=== PATIENT | male | born 1975 | race Caucasian/White ===

== ENCOUNTER 2016-12-21 15:47 | Inpatient (IN) | payer MEDICARE ==
[~2016-12-21] VITALS: Ht 188 cm; Wt 97.8 kg
[~2016-12-21 15:47] MED LIST: ETOMIDATE 20 MG INJ ONE; SUCCINYLCHOLINE CHLORIDE 100 MG/5 ML SYG IV ONE
[2016-12-21 20:27] VITALS: Ht 188 cm; Wt 97.8 kg
[2016-12-21] MEDS ORDERED: LAMO200T18 PO (20:33)
[2016-12-21] MEDS ORDERED: LTH150C PO (20:33)
[2016-12-21] MEDS ORDERED: QUET100T PO (20:33)
[2016-12-21] MEDS ORDERED: GABA300C16 PO (20:33)
[2016-12-21 20:37] VITALS: BP 128/70; RESP 20
[2016-12-21] MEDS ORDERED: ONDANSETRON 4 MG INJ IV PRN (21:00)
[2016-12-21] MEDS ORDERED: HYDROCODONE/APAP (5/325) TAB PO PRN (21:00)
[2016-12-21] MEDS ORDERED: SOD CHLORIDE 0.9% 1,000 ML IV SCH (21:00)
[2016-12-21] MEDS ORDERED: VANCOMYCIN IV PER PHARMACY XX SCH (21:00)
[2016-12-21] MEDS ORDERED: VANCOMYCIN 2 GM in SOD CHLORIDE 0.9% 500 ML IVPB SCH (23:30)
[2016-12-21] MEDS: PIPER-TAZO 3.375 GM IV (PMX) 100 ML IVPB SCH (23:33)
[2016-12-21] MEDS ORDERED: LORAZEPAM 2 MG INJ ONE ×2 (23:49→23:50)
[2016-12-22] VITALS (96 sets, daily range): BP systolic 52–129; BP diastolic 21–96; PULSE 75–144; RESP 16–46
[2016-12-22] MEDS ORDERED: HALOPERIDOL 5 MG INJ IM ONE
[2016-12-22] MEDS ORDERED: LORAZEPAM 2 MG INJ ONE ×2 (00:21→00:27)
[2016-12-22 00:30] LABS: AADO2 Arterial 528.1 mmHg (7.0-24.0); Arterial COHb 0.1 % (0.0-3.0); Arterial Fraction of Oxyhgb 97.5 % (93.0-99.0); Arterial HCO3 13.4 mmol/L (22.0-26.0); Arterial MetHb 0.6 % (0.0-1.5); Arterial Total Hemglobin 19.7 g/dl (12.0-18.0); MODE MASK - NRB
--- NOTE | 2016-12-22 00:55 | QN ---
Documentation Comment A/P DISCUSSED W DR SÁNCHEZ S/P MANAGER HOSPICE ON VENT IVDA SEPSIS SEIZURE S/P I AND D AT [facility] IV FLUID ID CONSULT PULMONARY CT HEAD WHEN STABLE BANANA BAG SHADIA SARMIENTO URINE TOXICOLOGY JH NUÑEZ MD Dec 22, 2016 00:55
[2016-12-22] MEDS ORDERED: LORAZEPAM 2 MG INJ IV PRN (01:00)
[2016-12-22] MEDS ORDERED: ALBUTEROL/IPRATROPIUM (NEB) 3 ML AMP HHN PRN (01:00)
[2016-12-22] MEDS ORDERED: LORAZEPAM 2 MG INJ IM ONE ×4 (01:00→02:30)
[2016-12-22] MEDS: PROPOFOL 100 ML IV SCH ×4 (01:21→22:05)
[2016-12-22] MEDS: NORepinephrine 8MG/250 ML (PMX 250 ML IV PRN ×2 (01:25→05:34)
[2016-12-22] MEDS ORDERED: DEXTROSE 5%-0.9% NACL 1,000 ML IV SCH (01:30)
[2016-12-22] MEDS: MIDAZOLAM (DRIP) 50 mg/50 mL 50 ML IV SCH ×5 (01:55→21:49)
--- NOTE | 2016-12-22 02:13 | EN ---
Date/Time of Note Date/Time of Note DATE: 12/22/16 TIME: 02:05 ER Progress Note Chief complaint: Acute respiratory failure History of present illness: The patient is a 41-year-old male is presenting with acute respiratory distress. He has history of IV drug abuse, seizure disorder. I was asked by the hospitalist Dr. Leong to evaluate patient. Upon arrival to the bedside, he was agitated with low O2 saturation. He had no IV access and required to be intubated immediately. Initially he was treated with etomidate 20 mg IV and succinylcholine 120 mg IV; however the IV line was not good. He was then treated with Ativan 4 mg IM for his agitation. He then had intraosseous line immediately and medicated with etomidate 20 mg IV and succinylcholine 120 mg IV, he was intubated immediately with any difficulty. Const: Moderate acute distress. Foaming at the mouth Head: Atraumatic. Eyes: Normal Conjunctiva. ENT: Normal External Ears, Nose and Mouth. Neck: Full range of motion. No meningismus. Resp: Clear to auscultation anterior and lateral, tachypneic Cardio: Regular tachycardic Abd: Soft, non distended, normal bowel sounds, non tender. Skin: No petechiae or rashes. Back: No midline or flank tenderness. Ext: No cyanosis, or edema. Neur: Unable to perform due to his condition Psych: Unable to perform due to his condition Intraosseous Line Placement by me: Patient consented, area prepped, time out performed. Anesthesia: 1% lidocaine locally Location: Anteromedial, Proximal Tibia (1-3 cm below Tibial tuberosity) Device: EZ-IO Needle blue 2.5 cm Technique: EZ-IO Drill Results: Bone Marrow Aspirated, No extravasation Complications: No evidence of extravasation, compartment syndrome, growth plate damage, or fat embolism Endotracheal Intubation by me: Pre assessment performed. See preceding note for details. Pre-oxygenation performed with 100% oxygen RSI: Performed w/o complication or hypoxic events. Medications as ordered. Blade: [place] Scope ET Tube: 7.5cm Depth: 23 cm at the lip Intubation confirmed by colorimetric CO2, equal breath sounds, quiet over the stomach. Critical Care: Time: 35 minutes excluding all billable procedures. Treatments/Evaluations: Close monitoring and treatment of unstable vital signs, cardiorespiratory, and neurologic status, while maintaining tight balance of fluid, respiratory, and cardiac interventions. Diagnostic impression: Acute respiratory failure Disposition: The patient is not intubated. I will transfer the care back to his physician Dr. Leong at the bedside for continuity of care RICHARD MARIE MD Dec 22, 2016 02:13
[2016-12-22] MEDS ORDERED: LORAZEPAM 2 MG INJ IV ONE (02:30)
[2016-12-22 02:34] LABS: AADO2 Arterial 261.1 mmHg (7.0-24.0); Allen Test ACCEPTAB; Arterial Base Excess -6.5 mmol/L (-3.0-3); Arterial COHb 0.1 % (0.0-3.0); Arterial Fraction of Oxyhgb 98.5 % (93.0-99.0); Arterial HCO3 18.9 mmol/L (22.0-26.0); Arterial MetHb 0.8 % (0.0-1.5); Arterial Total Hemglobin 19.6 g/dl (12.0-18.0); MODE VENT - AC
--- NOTE | 2016-12-22 03:22 | EN ---
Date/Time of Note Date/Time of Note DATE: 12/22/16 TIME: 03:20 ER Progress Note I was asked by the hospitalist to insert a central line for the patient who requires IV fluid and IV antibiotic. It is done on emergent basis, the patient is intubated and unable to provide consent Central Line Placement by me: Patient consented, sterilely draped, full prep, gown, glove, mask, time out performed. Anesthesia: 1% lidocaine locally Location: Right femoral vein Device: Multiple lumen Technique: Seldinger technique. Secured with suture. Results: Venous return from all ports with easy saline flush. No complications. Guide wire retrieved and disposed of. [ED Ultrasound: Central line placed by me using concurrent ultrasound guidance. Real time image archived in the medical record confirms vascular anatomy. RICHARD MARIE MD Dec 22, 2016 03:22
[2016-12-22 03:39] LABS: ADD SCAN DIFF NO
[2016-12-22 03:47] LABS: CANNABINOIDS Negative (NEGATIVE); COCAINE Negative (NEGATIVE)
[2016-12-22 03:48] LABS: BARBITURATES Negative (NEGATIVE); BENZODIAZEPINES Negative (NEGATIVE); OPIATES Positive (NEGATIVE)
[2016-12-22 03:56] LABS: ALBUMIN 2.8 g/dl (3.3-4.9); BASOPHIL # 0.1 10^3/ul (0.0-0.1); BASOPHILS % 0.4 % (0.0-2.0); EOSINOPHILS # 0.1 10^3/ul (0.0-0.5); EOSINOPHILS % 0.4 % (0.0-7.0); HEMATOCRIT 52.8 % (42.0-52.0); HEMOGLOBIN 16.9 g/dl (14.0-18.0); LYMPHOCYTES # 2.5 10^3/ul (0.8-2.9); LYMPHOCYTES % 10.1 % (15.0-51.0); MEAN CORPUSCULAR HEMOGLOBIN 28.5 pg (29.0-33.0); MEAN PLATELET VOLUME 10.5 fl (7.4-10.4); MONOCYTE # 1.4 10^3/ul (0.3-0.9); MONOCYTES % 5.7 % (0.0-11.0); NEUTROPHILS % 82.4 % (39.0-77.0); PLATELET COUNT 458 10^3/UL (140-415); RED BLOOD COUNT 5.93 10^6/ul (4.70-6.10); RED CELL DISTRIBUTION WIDTH 14.5 % (11.5-14.5); WHITE BLOOD COUNT 24.2 10^3/ul (4.8-10.8)
[2016-12-22 03:57] LABS: POTASSIUM 3.9 mmol/L (3.5-5.1)
[2016-12-22 03:59] LABS: BILIRUBIN,INDIRECT 0.3 mg/dl (0-1.1); BILIRUBIN,TOTAL 0.3 mg/dl (0.2-1.3); CREATININE 1.25 mg/dl (0.61-1.24)
[2016-12-22 04:00] LABS: ALBUMIN/GLOBULIN RATIO 0.77; CALCIUM 8.1 mg/dl (8.4-10.2); TOTAL PROTEIN 6.4 g/dl (6.1-8.1)
[2016-12-22] MEDS ORDERED: SOD CHLORIDE 0.9% 1,000 ML IV SCH (05:00)
[2016-12-22] MEDS ORDERED: ALBUMIN HUMAN 5% 250 ML IV ONE (05:00)
[2016-12-22] MEDS: ACETAMINOPHEN 325 MG TAB PO PRN ×2 (05:02→12:44)
[2016-12-22] MEDS ORDERED: PANTOPRAZOLE (EC) 40 MG TAB PO SCH (06:00)
[2016-12-22] MEDS: PIPER-TAZO 3.375 GM IV (PMX) 100 ML IVPB SCH ×2 (06:15→12:43)
[2016-12-22] MEDS ORDERED: PHENYLephrine 20MG IN 250 ML 250 ML ONE (06:53)
--- NOTE | 2016-12-22 06:57 | RADRPT ---
PROCEDURE: XR Chest. CLINICAL INDICATION: Seizure. Check endotracheal tube and nasogastric tube position. TECHNIQUE: Single frontal view. COMPARISON: None. FINDINGS: The endotracheal tube tip is 7 cm above the marcia and should be advanced approximately 5 cm. The n asogastric tube tip is in the stomach. The lungs are clear. The heart size is normal. There is no pleural effusion. There is no pneumothorax. IMPRESSION: 1. The endotracheal tube should be advanced approximately 5 cm. 2. Nasogastric tube tip in the stomach. 3. Clear lungs. RPTAT: QQ .Mike Regalado MD, MD Date Time Electronically viewed and signed by .Mike Regalado MD, on 12/22/2016 06:57 .R/
[2016-12-22] MEDS ORDERED: SOD CHLORIDE 0.9% 500 ML IV ONE (07:00)
--- NOTE | 2016-12-22 07:01 | PQ ---
Date/Time of Note Date/Time of Note DATE: 12/22/16 TIME: 06:54 Physician Query Documentation Clarification Dear Dr. Nuñez, A review of the medical record found a need for documentation clarification. ER Progress Note Chief complaint: Acute respiratory failure History of present illness: The patient is a 41-year-old male is presenting with acute respiratory distress. He has history of IV drug abuse, seizure disorder. I was asked by the hospitalist Dr. Leong to evaluate patient. Upon arrival to the bedside, he was agitated with low O2 saturation. He had no IV access and required to be intubated immediately ABG 12/22--7.215 / 34/ 150.9 / -13 Please clarify if you concur with above diagnosis of Acute respiratory failure. ( x) yes ( ) no ( ) others ( ) clinically undetermined Please provide your response by clicking edit document, making your choice ( x ), click ok/save and finally click sign. You may also document your response on your progress notes. Thank you for your time. Juan Daniel Reyes RN, BSN, CCS, CCDS [facility] and Coding Services [phone] Room # 1525 - Coding [address]~ [address] JUAN DANIEL REYES Dec 22, 2016 07:01 JH NUÑEZ MD Dec 22, 2016 09:16
[2016-12-22] MEDS: PHENYLephrine 40 MG in DEXTROSE 5% 496 ML IV SCH ×2 (07:03→15:52)
[2016-12-22] MEDS ORDERED: NA BICARBONATE 8.4% 50 ML SYG IV STA (07:15)
[2016-12-22] MEDS ORDERED: NA BICARBONATE 8.4% 50 ML SYG ONE (07:17)
[2016-12-22] MEDS ORDERED: SOD CHLORIDE 0.9% 1,000 ML IV ONE (07:30)
--- NOTE | 2016-12-22 07:33 | PN ---
Date/Time of Note Date/Time of Note DATE: 12/22/16 TIME: 07:25 Assessment/Plan VTE Prophylaxis VTE Prophylaxis Intervention: other Lines/Catheters IV Catheter Type (from Nrsg): Central Line Central line still needed: Yes Urinary Cath still in place: Yes Reason Cath still needed: skin wounds contaminated by urine, other (indicate) Assessment/Plan Chief Complaint/Hosp Course [id number] hp A/P SEPTIC SHOCK IVDA SEIZURE LINO VDRF PLAN FLUID PRESSOR PULMONARY ID DR SANCHEZ CALLED Problems: Subjective 24 Hr Interval Summary Subjective hx not possible: other (on vent) Exam/Review of Systems Vital Signs Vitals Vital Signs Date Time Temp Pulse Resp B/P Pulse Ox O2 Delivery O2 Flow Rate FiO2 12/22/16 06:30 125 27 99/76 100 Mechanical Ventilator 12/22/16 05:14 50 12/22/16 04:00 101.0 Intake and Output 12/21/16 12/21/16 12/22/16 15:00 23:00 07:00 Intake Total 287.87 ml Output Total 740 ml Balance -452.13 ml Exam Neck: supple Respiratory: clear to auscultation Cardiovascular: regular rate and rhythm Gastrointestinal: bowel sounds, nl liver, spleen, non-tender, soft Extremities: edema (rt arm edema) Neurological: other (restless+) Skin: other (rt arm wound+) Results Result Diagram: 12/22/16 0245 12/22/16 0245 Results 24 hrs Laboratory Tests Test 12/22/16 00:15 12/22/16 01:00 12/22/16 01:30 12/22/16 02:45 Blood Gas Specimen Source Blood arterial Blood arterial Arterial Blood Date Drawn 12/22/2016 12:20:27 AM 12/22/2016 2:15:41 AM Arterial Blood pH (Temp corrected) 7.215 *L 7.316 L Arterial Blood pCO2 (Temp correct) 34.0 L 37.8 Arterial Blood pO2 (Temp corrected) 150.9 H 414.1 H Arterial Blood HCO3 13.4 L 18.9 L Arterial Blood Base Excess -13.0 L -6.5 L Arterial Blood Oxygen Saturation 98.2 H 99.4 H Vladimir Test N/A ACCEPTAB Arterial Blood Gas Puncture Site Femoral Right Radial Arterial Blood Carboxyhemoglobin 0.1 0.1 Arterial Blood Methemoglobin 0.6 0.8 Blood Gas A-a O2 Differential 528.1 H 261.1 H Oxyhemoglobin Percent 97.5 98.5 Total Hemoglobin 19.7 H 19.6 H Blood Gas Temperature 37.0 37.0 Blood Gas Modality MASK - NRB VENT - AC FiO2 100.0 100.0 Blood Gas Critical Value Read Back Liz MARSHALL RN CHARGE Blood Gas Notified Whom ALEXIS LUKE Blood Gas Notified Time 12/22/2016 12:30:32 AM 12/22/2016 2:33:33 AM Urine Opiates Screen Positive Urine Barbiturates Negative Urine Amphetamines Screen Positive Urine Benzodiazepines Screen Negative Urine Cocaine Screen Negative Urine Cannabinoids Negative Blood Gas Respiration Rate 20.0 Blood Gas Actual Respiration Rate 28 Blood Gas Tidal Volume 600.0 Blood Gas Low PEEP Setting 5.0 Blood Gas Inspiratory Pressure 25.0 White Blood Count 24.2 H Red Blood Count 5.93 Hemoglobin 16.9 Hematocrit 52.8 H Mean Corpuscular Volume 89.0 Mean Corpuscular Hemoglobin 28.5 L Mean Corpuscular Hemoglobin Concent 32.0 Red Cell Distribution Width 14.5 Platelet Count 458 H Mean Platelet Volume 10.5 H Neutrophils % 82.4 H Lymphocytes % 10.1 L Monocytes % 5.7 Eosinophils % 0.4 Basophils % 0.4 Nucleated Red Blood Cells % 0.0 Neutrophils # 20.0 H Lymphocytes # 2.5 Monocytes # 1.4 H Eosinophils # 0.1 Basophils # 0.1 Nucleated Red Blood Cells # 0.0 Sodium Level 140 Potassium Level 3.9 Chloride Level 106 Carbon Dioxide Level 22 Anion Gap 16 Blood Urea Nitrogen 7 Creatinine 1.25 H Glucose Level 308 H Calcium Level 8.1 L Total Bilirubin 0.3 Direct Bilirubin 0.00 Indirect Bilirubin 0.3 Aspartate Amino Transf (AST/SGOT) 40 Alanine Aminotransferase (ALT/SGPT) 44 Alkaline Phosphatase 106 Total Protein 6.4 Albumin 2.8 L Globulin 3.60 H Albumin/Globulin Ratio 0.77 Medications Medications Current Medications Piperacillin Sod/ Tazobactam Sod (Zosyn 3.375gm/ 100 ml (Pmx)) 100 ml @ 200 mls /hr Q6 IVPB Last administered on 12/22/16t 06:15; Admin Dose 200 MLS/HR; Start 12/22/16 at 00:00 Acetaminophen (Tylenol Tab) 650 mg Q6H PRN PO PAIN AND OR ELEVATED TEMP Last administered on 12/22/16 05:02; Admin Dose 650 MG; Start 12/21/16 at 21:00 Acetaminophen/ Hydrocodone Bitart ([place] (5/325)) 1 tab Q6H PRN PO MODERATE PAIN; Start 12/21/16 at 21:00 Morphine Sulfate (morphine) 3 mg Q3H PRN IV PAIN; Start 12/21/16 at 21:00 Ondansetron HCl (Zofran Inj) 4 mg Q6H PRN IV NAUSEA AND/OR VOMITING; Start at 21:00 Pantoprazole 40 mg 40 mg DAILY@06 PO Last administered on 12/22/16 06:15; Admin Dose 40 MG; Start 12/22/16 at 06:00 Propofol (Diprivan) 100 ml @ 2.934 mls/ hr Q12H IV Last administered on 07:11; Admin Dose 5.868 MLS/HR; Start 12/22/16 at 00:45 Lorazepam 1 mg 1 mg Q6H PRN IV SEIZURE; Start 12/22/16 at 01:00 Levetiracetam 100 ml @ 1,000 mls/hr Q12 IVPB ; Start 12/22/16 at 09:00 Multivitamins 10 ml/Thiamine HCl 100 mg/Folic Acid 1 mg/Sodium Chloride 1,011.2 ml @ 125 mls/ hr DAILY@09 IVPB ; Start 12/22/16 at 09:00 Midazolam HCl 50 ml @ 1 mls/hr TITRATE IV Last administered on 12/22/16 06:00; Admin Dose 10 MLS/HR; Start 12/22/16 at 00:45 Norepinephrine 16 mg/Dextrose 500 ml @ 1.87 mls/hr TITRATE PRN IV SBP BELOW 90mmHg; Start 12/22/16 at 07:00 Dextrose/Sodium Chloride (D5-NS) 1,000 ml @ 75 mls/hr [id number] IV Last administered on 12/22/16 01:32; Admin Dose 75 MLS/HR; Start 12/22/16 at 01:30 Hydrocortisone 100 mg 100 mg BID IV ; Start 12/22/16 at 09:00; Stop 12/25/16 at 10 :00 Tobramycin 100 mg/ Sodium Chloride 52.5 ml @ 104 mls/hr ONCE IVPB ; Start at 08:00; Stop 12/22/16 at 12:00 Phenylephrine HCl 40 mg/Dextrose 500 ml @ 75 mls/hr TITRATE IV Last administered on 12/22/16 07:03; Admin Dose 225 MLS/HR; Start 12/22/16 at 07:00 Sodium Chloride 500 ml @ 500 mls/hr Q1H ONCE IV Last administered on 12/22/16 07:04; Admin Dose 500 MLS/HR; Start 12/22/16 at 07:00; Stop 12/22/16 at 07:59 Phenylephrine HCl (Deon-Syneph) 250 ml @ 75 mls/hr TITRATE IV ; Start 12/22/16 at 07:30 JH NUÑEZ MD Dec 22, 2016 07:33
[2016-12-22] MEDS: PHENYLephrine 20MG IN 250 ML 250 ML IV SCH ×2 (07:56→09:18)
[2016-12-22] MEDS ORDERED: TOBRAMYCIN 100 MG in SOD CHLORIDE 0.9% 50 ML IVPB SCH (08:00)
--- NOTE | 2016-12-22 08:03 | HP ---
DATE OF ADMISSION: 12/21/2016 HISTORY OF PRESENT ILLNESS: The patient is a 41-year-old male who has a history of IVDA, presented to [facility] complaining of swelling and pain to the right arm. He has been shooting drugs into the right arm as per note and had multiple surgeries for abscess formation in both arms. He is also homeless. He has been on the streets for the last couple of weeks. As per record from the ER, the patient has right upper extremity abscess, I and D was done by a [place] physician. After that, patient _ [place] member, the patient was transferred to [facility]. On the floor the patient was receiving antibiotics. Patient had episodes of seizure disorder as well as patient developed respiratory insufficiency, was intubated and transferred to ICU, was seen by Dr. mcleod. The case discussed with him. The patient was also seen by Dr. Ld Shah, who intubated the patient. The patient has been having ongoing episodes of up and down blood pressure; receiving pressors, IV fluid and antibiotics. The patient's laboratory data done from [place]: WBC 17 , hematocrit 39.8, platelet 302, potassium 3.8, CO2 of 23, creatinine is 0.68. The patient is pretty critical at this point. PAST MEDICAL HISTORY: As mentioned above, cannot be obtained. ALLERGY HISTORY: At this time cannot be obtained from this patient. FAMILY HISTORY: At this time cannot be obtained from this patient. SOCIAL HISTORY: At this time cannot be obtained from this patient. MEDICATION HISTORY: Currently the patient is on: 1. Keppra. 2. Banana bag. 3. Solu-Cortef. 4. Tobramycin. 5. Levophed. 6. Protonix. 7. D5 half normal saline. 8. Ativan. 9. Propofol. 10. Zosyn. 11. Vancomycin. REVIEW OF SYSTEMS: Cannot be obtained. PHYSICAL EXAMINATION: GENERAL: The patient is intubated, restless. VITAL SIGNS: Blood pressure 96/76, pulse 125, respirations 30, the patient's temperature was recorded as 101.0. HEENT: Head is atraumatic, normocephalic. Pupils equal, reactive to light. NECK: Supple. There is no JVD. LUNGS: Clear. CARDIOVASCULAR: S1, S2 are normal. ABDOMEN: Soft. Bowel sounds present. No palpable mass. EXTREMITIES: No cyanosis, clubbing, or edema. The patient has right arm edema noted, abscess noted. CENTRAL NERVOUS SYSTEM: The patient is sedated. LABORATORY DATA: Done shows an ABG 7.31, pCO2 of 37, pO2 of 414. Sodium 140, potassium 3.9, BUN 7, creatinine 1.25, glucose 308, calcium 8.1. Chest x-ray shows endotracheal tube should be _ cm. Nasogastric tube in the stomach, clear lungs. IMPRESSION: 1. Septic shock. 2. Patient has a seizure disorder, etiology unclear. 3. Patient has right arm abscess, status post incision and drainage. 4. Acute kidney injury. 5. Leukocytosis. 6. The patient has dehydration. PLAN: At this point is to hemodynamically support this patient. The patient will be on IV fluids, pressors, antibiotics. Infectious disease consultation, neurology consultation, pulmonary consultation and surgical consultation. The patient's case was discussed with nurse multiple times in-person. Dictated By: JH TEJEDA/JOVANNY Conf#: [id number] DID#: [id number] MTDD
[2016-12-22] MEDS: PANTOPRAZOLE IV 80 MG in SOD CHLORIDE 0.9% 100 ML IV SCH ×2 (08:32→17:36)
[2016-12-22 08:38] LABS: ALBUMIN 2.4 g/dl (3.3-4.9)
[2016-12-22 08:39] LABS: POTASSIUM 4.1 mmol/L (3.5-5.1)
[2016-12-22 08:41] LABS: ALBUMIN/GLOBULIN RATIO 0.82; BILIRUBIN,INDIRECT 0.1 mg/dl (0-1.1); BILIRUBIN,TOTAL 0.1 mg/dl (0.2-1.3); CREATININE 1.96 mg/dl (0.61-1.24); TOTAL PROTEIN 5.3 g/dl (6.1-8.1)
[2016-12-22 08:42] LABS: CALCIUM 7.7 mg/dl (8.4-10.2); PHOSPHORUS 3.2 mg/dl (2.5-4.9)
[2016-12-22 08:42] LABS: AADO2 Arterial 205.3 mmHg (7.0-24.0); Allen Test ACCEPTAB; Arterial Base Excess -4.1 mmol/L (-3.0-3); Arterial COHb 0.3 % (0.0-3.0); Arterial Fraction of Oxyhgb 97.4 % (93.0-99.0); Arterial MetHb 0.6 % (0.0-1.5); Arterial Total Hemglobin 17.3 g/dl (12.0-18.0); MODE VENT - AC
[2016-12-22 08:50] LABS: CK-MB 5.18 ng/ml (0.0-2.4)
[2016-12-22] MEDS ORDERED: HYDROCORTISONE 100 MG INJ IV SCH (09:00)
[2016-12-22] MEDS: MULTIVITAMINS 10 ML, THIAMINE 100 MG, FOLIC ACID 1 MG in SOD CHLORIDE 0.9% 1,000 ML IVPB SCH (09:14)
[2016-12-22] MEDS: VANCOMYCIN 2 GM in SOD CHLORIDE 0.9% 500 ML IVPB SCH (09:58)
[2016-12-22] MEDS: LEVETIRACETAM 1000 MG (PMX) 100 ML IVPB SCH ×2 (09:58→21:46)
--- NOTE | 2016-12-22 10:07 | CONS ---
DATE OF ADMISSION: 12/21/2016 DATE OF CONSULTATION: 12/22/2016 TYPE OF CONSULTATION: Surgical REASON FOR CONSULTATION: Cellulitis and abscess, right upper extremity. HISTORY OF PRESENT ILLNESS: The patient is a 41-year-old gentleman who is a known drug abuser and has had several hospitalizations for abscesses in both upper extremities. He presented to [place] last night with a hot and tender right upper extremity. He underwent an incision and drainage and the patient was transferred here. Shortly after arrival, the patient had a seizure and required intubation. The patient's white count from [place] was 17,000, in the emergency room it was up to 24. The patient is admitted to the intensive care unit. I have been asked to see the patient in regards to the cellulitis of his right upper extremity. PAST MEDICAL HISTORY: There is no known medical history at the time of this dictation. OUTPATIENT MEDICATIONS: Also unknown. REVIEW OF SYSTEMS: Cannot be obtained. PHYSICAL EXAMINATION: GENERAL: The patient is a 41-year-old male of husky build. He is intubated. HEENT: Endotracheal tube in place. LUNGS: Clear. HEART: Regular rhythm. ABDOMEN: Obese but soft and nontender. EXTREMITIES: Right upper extremity is erythematous and swollen. There is an I and D site on the dorsum of the right forearm with packing in place. The right hand is viable with a palpable radial pulse IMPRESSION: Septic shock with seizure disorder, now status post incision and drainage of right upper extremity abscess. PLAN: I removed the wound packing at the bedside this morning. We will treat with continuous warm compresses, elevation and broad-spectrum antibiotics. Vascular surgical consultation to evaluate possible need for right upper extremiy fasciotomies. The patient's condition is critical and his prognosis is guarded. I will follow with you. Dictated By: ALEXANDRU OSPINA/JOVANNY Conf#: [id number] DID#: [id number] CC: JH NUÑEZ MD;*EndCC* MTDD
[2016-12-22 10:27] LABS: TROPONIN-I 0.606 ng/ml (0.00-0.12)
[2016-12-22 11:10] LABS: ADD SCAN DIFF NO
[2016-12-22 11:17] LABS: ABNORMAL IP MESSAGE 1; BASOPHIL # 0.1 10^3/ul (0.0-0.1); BASOPHILS % 0.4 % (0.0-2.0); EOSINOPHILS % 0.1 % (0.0-7.0); HEMATOCRIT 50.5 % (42.0-52.0); HEMOGLOBIN 16.9 g/dl (14.0-18.0); LYMPHOCYTES # 2.2 10^3/ul (0.8-2.9); LYMPHOCYTES % 8.8 % (15.0-51.0); MEAN CORPUSCULAR HEMOGLOBIN 29.2 pg (29.0-33.0); MEAN CORPUSCULAR HGB CONC 33.5 g/dl (32.0-37.0); MEAN CORPUSCULAR VOLUME 87.4 fl (82.0-101.0); MEAN PLATELET VOLUME 9.9 fl (7.4-10.4); MONOCYTE # 1.4 10^3/ul (0.3-0.9); MONOCYTES % 5.4 % (0.0-11.0); NEUTROPHIL # 21.3 10^3/ul (1.6-7.5); NEUTROPHILS % 84.6 % (39.0-77.0); PLATELET COUNT 374 10^3/UL (140-415); RED BLOOD COUNT 5.78 10^6/ul (4.70-6.10); RED CELL DISTRIBUTION WIDTH 14.6 % (11.5-14.5); WHITE BLOOD COUNT 25.2 10^3/ul (4.8-10.8)
[2016-12-22] MEDS ORDERED: SODIUM BICARBONATE (IV ADD) 150 MEQ in DEXTROSE 5% 1,000 ML IV SCH (12:00)
--- NOTE | 2016-12-22 12:28 | CONS ---
DATE OF ADMISSION: 12/21/2016 DATE OF CONSULTATION: 12/22/2016 TIME SEEN: 11:30 a.m. REASON FOR CONSULTATION: Respiratory failure and shock. PRIMARY PHYSICIAN: Dr. Jabier Nuñez HISTORY OF PRESENT ILLNESS: Briefly, this is a 41-year-old gentleman with a history of IV drug use , history of methamphetamine use and a history of seizure disorder, who apparently recently presen gabby to [facility] for right upper extremity swelling after shooting drugs in his right extremit y. He apparently had an incision and drainage of an abscess on his right arm. It appears that the patient was subsequently transferred to [facility] where he was admitted and had an acute decompensation with progressive hypercapnic respiratory failure requiring intubation w ith progressive hemodynamic embarrassment requiring vasopressor support and worsening renal failure. He is currently on mechanical ventilation and is sedated with Versed and propofol drips. PAST MEDICAL HISTORY: As noted above. SOCIAL HISTORY: Unable to obtain. FAMILY HISTORY: Unable to obtain. SOCIAL HISTORY: Unable to obtain. MEDICATIONS: Please see MAR. REVIEW OF SYSTEMS: Unable to obtain. PHYSICAL EXAMINATION: GENERAL: A mildly obese gentleman, intubated and sedated on mechanical ventilation. VITAL SIGNS: Heart rate is 115, blood pressure is 107/74 supported on Levophed and Deon-Synephrine d rips, oxygen saturation is 100% on 50% FIO2 and 5 of PEEP. His ventilator settings are tidal volume of 600 and rate of 20. HEENT: ET tube is in place. NECK: Supple, no thyromegaly, no jugular venous distention. CARDIOVASCULAR: Tachycardic, S1 and S2 with no murmurs, rubs, or gallops. LUNGS: Clear to auscultation bilaterally. ABDOMEN: Obese, soft, nontender, normoactive bowel sounds. EXTREMITIES: Normal with the exception of extensive erythema and swelling of the right arm and fore arm. There are very weak pulses palpable in the right ulnar and radial. There is no obvious eviden ce of blister formation or bulla. LABORATORY DATA: WBC is 25.2, hemoglobin 16.9, platelets are 274. Lactic acid is 4.5. Sodium is 1 42, creatinine is 1.96. CK is 406. Troponin is 0.6, albumin is 2.4. ABG: pH is 7.38, pCO2 is 34, pO2 is 113, this is on 50% FIO2. Urine tox is positive for amphetamines and opiates. Chest x-ray shows ET tube about 5 cm above the marcia with no obvious infiltrates. IMPRESSION: 1. Refractory septic shock secondary to a severe skin and soft tissue infection involving the right upper extremity with concern for necrotizing fasciitis. At this point, his LRINEC score is 5. How ever, we do not have a CRP which would help to further prognosticate his pretest probability of havi ng a deep-seated skin and soft tissue infection. 2. Multiorgan systems failure as evidenced by acute renal failure, lactic acidosis and respiratory failure. 3. Respiratory failure requiring intubation. 4. Acute renal failure, likely prerenal versus acute tubular necrosis. At this point, he is oligur ic and may require dialysis. 5. Mild rhabdomyolysis. His CK is 406. However, this may continue to elevate, especially if he do es develop compartment syndrome. 6. Elevated troponin, I suspect that this is more likely demand ischemia in the setting of refracto ry septic shock and renal failure. 7. History of IV drug use. RECOMMENDATIONS: 1. Aggressive IV resuscitation. We will change fluids to D5W with 3 amps of sodium bicarbonate unt il patient ends up receiving hemodialysis. 2. Continue current vent support with measures to optimize or minimize risk of ventilator-associate d lung injury. 3. Stat CRP CK and lactic acid. 4. Advance ET tube 1 cm. 5. Continue antibiotics with Zosyn and vancomycin and will add clindamycin IV for antitoxic effects . 6. Will add hydrocortisone IV given refractory shock. 7. We will continue to titrate Levophed and Deon-Synephrine to keep MAP greater or equal to 65. 8. We will follow serial troponins and lactic acid and CKs. 9. We will obtain a right upper extremity CT without contrast. Most importantly, the patient will need surgical evaluation anemia acutely for possible fasciotomy, as there is concern that this is a deep seated skin and soft tissue infection. 10. We will initiate Vitamin C and thiamine as per recent article published ____ showing evidence o f improvement in refractory septic shock with the addition of high dose thiamine and vitamin C in th e setting of refractory shock. 11. Continue patient's antiepileptic therapy and deep vein thrombosis and gastrointestinal prophyl actic measures. I will discuss my findings and need for more urgent surgical assessment with Dr. Steven Nuñez. Dictated By: TAB CARLSON MD NK/NTS Conf#: [id number] DID#: [id number] CC: GASPER TALLEY MD; JABIER NUÑEZ MD;*EndCC*
[2016-12-22] MEDS: CLINDAMYCIN 900 MG/D5W (PMX) 50 ML IVPB SCH ×2 (12:44→18:12)
[2016-12-22] MEDS: ASCORBIC ACID 500 MG TAB NGT SCH ×2 (12:44→21:49)
[2016-12-22] MEDS: THIAMINE 100 MG TAB NGT SCH ×2 (12:48→21:48)
[2016-12-22] MEDS: INSULIN ASPART [NOVOLOG] 3 ML PEN SC SCH ×3 (13:29→22:05)
[2016-12-22] MEDS: FENTAnyl (DRIP) 1000 mcg/100mL 100 ML IV SCH (13:41)
[2016-12-22] MEDS ORDERED: IMIPENEM/CILASTATIN 1,000 MG in SOD CHLORIDE 0.9% 250 ML IVPB SCH (14:00)
[2016-12-22] MEDS ORDERED: DIPHENHYDRAMINE 50 MG INJ IV PRN (14:00)
[2016-12-22] MEDS: HYDROCORTISONE 100 MG INJ IV SCH ×2 (14:28→21:49)
--- NOTE | 2016-12-22 16:01 | CONS ---
DATE OF ADMISSION: 12/21/2016 DATE OF CONSULTATION: 12/22/2016 TYPE OF CONSULTATION: Infectious Disease. REASON FOR CONSULTATION: Antibiotic management. HISTORY OF PRESENT ILLNESS: Salvador Ortiz is a 41-year-old male with a number of problems wh o comes in with respiratory failure and shock. The patient has: 1. History of IV drug abuse with a history of methamphetamine use. 2. History of seizure disorder. Most recently he presented to [facility] for right upper extremity swelling after shooting drug s into his right arm. He had an incision and drainage of an abscess of the right arm and was transf erred to [facility] where he was admitted. The patient had acute decompensation with progr essive hypercapnic respiratory failure requiring intubation with progressive hemodynamic embarrassme nt and he is currently on pressors as well as multiple antibiotics. The patient was intubated, is o n Versed and propofol. On admission, his white count was 25.2, hemoglobin 16.9, platelets 274. Lac tic acid 4.5. BUN and creatinine are 11/1.96. Troponin 0.606, mostly muscle. His white count toda y is 25.2. Chest x-ray shows an ET tube, an NG tube and clear lungs. Microbiology of the wound is pending. Blood cultures were ordered. The patient was seen by Dr. Jose Schafer, surgery, for cell ulitis and abscess in the right upper extremity. The right upper extremity was erythematous and swo llen. There is an I and D site on the dorsum of the right forearm with packing in place. His impre ssion was septic shock with seizure disorder, now status post incision and drainage of the right upp er extremity abscess. He did not mention necrotizing fasciitis or compartmental syndrome and since patient had an I and D, the latter would be very unlikely. PAST MEDICAL HISTORY: Operations as outlined. FAMILY HISTORY: Noncontributory. PAST SURGICAL HISTORY: Unable to obtain. ALLERGIES: PATIENT CURRENTLY HAS A DIFFUSE RASH SECONDARY TO ANTIBIOTICS. MEDICATIONS: Per chart. REVIEW OF SYSTEMS: As per HPI. PHYSICAL EXAMINATION: GENERAL: The patient is a mildly obese male who is intubated on a ventilator with an NG tube in hany ce. VITAL SIGNS: Are being maintained with Levophed and Deon-Synephrine. HEENT: ET tube in place. NECK: Supple. LYMPH NODES: None palpable. CHEST: Decreased breath sounds at the bases. HEART: Without murmur or gallop. ABDOMEN: Soft, nontender, without organosplenomegaly or masses. EXTREMITIES: Without cyanosis, clubbing, or edema. He has extensive erythema and swelling of the r ight forearm and very weak pulses palpable in the right ulnar and radial areas. SKIN: With regard to his skin, he has diffuse macular rash all over his trunk and back. RECTAL AND GENITAL: Deferred. NEUROLOGIC: No focal neurological abnormalities. IMPRESSION AND PLAN: The patient has severe cellulitis. He is on vancomycin. He received Zosyn an d also clindamycin for the possibility of group A strep. He has mild rhabdomyolysis with a CPK of 4 06. He was seen by Dr. Rich and will be seen by Dr. Ramsay for further care. I am going to philippe e his Zosyn to meropenem. If he has ongoing rash, it could be related to vancomycin as well. I do not believe it is related to clindamycin. We may have to stop his vancomycin and either continue cl indamycin or switch him to daptomycin. I will dictate my findings to Dr. Guzman and [facility] including Dr. Jovel. Dictated By: DARIUSZ WALLS MD, JD/JOVANNY Conf#: [id number] DID#: [id number]
[2016-12-22] MEDS ORDERED: VANCOMYCIN 1 GM in NS 250 ML IVPB SCH (21:00)
[2016-12-22] MEDS: IMIPENEM-CILAST 500MG IV (PMX) 100 ML IVPB SCH (21:49)
[2016-12-22] MEDS: SODIUM BICARBONATE (IV ADD) 150 MEQ in DEXTROSE 5% 1,000 ML IV SCH (21:54)
[2016-12-23] VITALS (81 sets, daily range): BP systolic 69–124; BP diastolic 50–78; PULSE 77–104; RESP 0–33
[2016-12-23] MEDS: PROPOFOL 100 ML IV SCH ×2 (00:45→19:32)
[2016-12-23] MEDS: CLINDAMYCIN 900 MG/D5W (PMX) 50 ML IVPB SCH ×5 (00:55→23:51)
[2016-12-23] MEDS: INSULIN ASPART [NOVOLOG] 3 ML PEN SC SCH ×6 (01:07→20:28)
--- NOTE | 2016-12-23 03:55 | CONS ---
DATE OF ADMISSION: 12/21/2016 DATE OF CONSULTATION: 12/22/2016 ORTHOPEDIC SURGICAL CONSULTATION HISTORY OF PRESENT ILLNESS: The patient is a 39-year-old male who obviously was seen at the emergen cy room of the [facility] on 12/21/2016 because of painful swelling involving his right upper e xtremity. He obviously had been using IV drugs using his arms, and he also has been on the street f or a couple of weeks. He is known to have hepatitis C, and he may have had I and D of abscess on th e upper extremities in the past. In the emergency room of the [facility], he was noted to have an abscess in the volar aspect of the proximal right forearm and was treated with I and D of absces s by plastic surgery. He was transferred on 12/21/2016 after I and D for further followup and care. When he was seen in the emergency room of the [facility], his temperature was 98.1, and he was showing marked leukocytosis. At the time of my evaluation, his temperature was 98.8 Fahrenheit, and he was showing leukocytosis with a WBC count of 25.2. PHYSICAL EXAMINATION: There was swelling and hardness over the right forearm. There was an open wo und over the anterior aspect of the proximal portion of the right forearm. The hardness and swellin g is less around the open wound, probably because of the incision and drainage. There was an area o f hardness over the anterior aspect of the distal portion of the right arm with signs of surrounding cellulitis. The radial arterially was weakly palpable; however, there were no signs of obvious com partment syndrome. IMAGING DATA: No x-rays involving the right forearm were available for my review. DIAGNOSTIC IMPRESSION: Abscess, right forearm with surrounding cellulitis, status post incision and drainage of abscess over the right forearm by plastic surgery at [facility]. No obvious invol vement of elbow joint itself. RECOMMENDATIONS FOR MANAGEMENT: 1. Keep the right upper extremity elevated. 2. Further radiologic studies, preferably MRI scan or CT scan if MRI scan cannot be carried out. 3. Continue IV antibiotics per infectious disease. 4. Orthopedic surgery will be available if further diagnostic study shows any involvement of bone o r joint. Dictated By: DARIN BALLESTEROS/JOVANNY Conf#: [id number] DID#: [id number]
[2016-12-23] MEDS: PANTOPRAZOLE IV 80 MG in SOD CHLORIDE 0.9% 100 ML IV SCH ×2 (04:19→14:16)
[2016-12-23] MEDS: MIDAZOLAM (DRIP) 50 mg/50 mL 50 ML IV SCH ×4 (04:19→23:52)
[2016-12-23 04:42] LABS: AADO2 Arterial 64.6 mmHg (7.0-24.0); Arterial Base Excess -1.4 mmol/L (-3.0-3); Arterial COHb 0.3 % (0.0-3.0); Arterial Fraction of Oxyhgb 97.6 % (93.0-99.0); Arterial HCO3 21.6 mmol/L (22.0-26.0); Arterial MetHb 0.4 % (0.0-1.5); Arterial Total Hemglobin 13.6 g/dl (12.0-18.0); MODE VENT - AC
[2016-12-23] MEDS: SODIUM BICARBONATE (IV ADD) 150 MEQ in DEXTROSE 5% 1,000 ML IV SCH ×3 (05:10→21:54)
[2016-12-23] MEDS: IMIPENEM-CILAST 500MG IV (PMX) 100 ML IVPB SCH ×3 (05:40→21:54)
[2016-12-23] MEDS: MULTIVITAMINS 10 ML, THIAMINE 100 MG, FOLIC ACID 1 MG in SOD CHLORIDE 0.9% 1,000 ML IVPB SCH (05:41)
[2016-12-23] MEDS: HYDROCORTISONE 100 MG INJ IV SCH ×3 (05:41→21:54)
[2016-12-23 05:54] LABS: ADD SCAN DIFF NO
[2016-12-23 06:04] LABS: BASOPHILS % 0.1 % (0.0-2.0); HEMATOCRIT 40.5 % (42.0-52.0); HEMOGLOBIN 13.2 g/dl (14.0-18.0); LYMPHOCYTES # 2.2 10^3/ul (0.8-2.9); LYMPHOCYTES % 13.9 % (15.0-51.0); MEAN CORPUSCULAR HEMOGLOBIN 28.3 pg (29.0-33.0); MEAN CORPUSCULAR HGB CONC 32.6 g/dl (32.0-37.0); MEAN CORPUSCULAR VOLUME 86.7 fl (82.0-101.0); MEAN PLATELET VOLUME 9.9 fl (7.4-10.4); MONOCYTE # 0.8 10^3/ul (0.3-0.9); MONOCYTES % 4.7 % (0.0-11.0); NEUTROPHIL # 12.8 10^3/ul (1.6-7.5); NEUTROPHILS % 80.9 % (39.0-77.0); PLATELET COUNT 230 10^3/UL (140-415); RED BLOOD COUNT 4.67 10^6/ul (4.70-6.10); RED CELL DISTRIBUTION WIDTH 14.9 % (11.5-14.5); WHITE BLOOD COUNT 15.8 10^3/ul (4.8-10.8)
[2016-12-23 06:18] LABS: POTASSIUM 3.8 mmol/L (3.5-5.1)
[2016-12-23 06:21] LABS: CALCIUM 7.9 mg/dl (8.4-10.2); CREATININE 1.76 mg/dl (0.61-1.24)
--- NOTE | 2016-12-23 09:05 | PN ---
DATE: SUBJECTIVE: The patient remains intubated in the intensive care unit. The patient is currently afe brile. His T-max was 101.1. This morning, his white count has come down to 15,800. PHYSICAL EXAMINATION: EXTREMITIES: The right upper extremity shows continued erythema, but much decreased swelling of the proximal and distal forearm. There is an excellent radial and ulnar pulse. The hand is clearly vi able. PLAN: Continue medical management. The patient is scheduled for a CT of the right upper extremity. Further recommendations will be forthcoming based on the patient's further workup and clinical cou rse. I will follow with you. Dictated By: ALEXANDRU OSPINA/JOVANNY Conf#: [id number] DID#: [id number]
--- NOTE | 2016-12-23 09:44 | RADRPT ---
PROCEDURE: CT Brain without contrast. CLINICAL INDICATION: Seizure TECHNIQUE: CT scan of the brain was performed on a multidetector high-resolution CT scan. Axial im aging was obtained of the brain without contrast administration. Coronal and sagittal reformatted i mages were obtained from the axial source images. Standard CT scan of the head without contrast prot ocols were performed. The total exam CTDI equals 43.86 mGy and the total exam DLP equals 810.25 mGy-cm. One or more of the following dose reduction techniques were used: - Automated exposure control. - Adjustment of the mA and/or kV according to patient size. Use of iterative reconstruction technique. COMPARISON: None. FINDINGS: The patient is rotated to the right and tilted to the right. The ventricular system and peripheral CSF spaces are unremarkable. Negative for intracranial masses hemorrhages or midline shift. The crow jonathan and calvarium are intact. A nasogastric tube is in place. There is bilateral maxillary, bilate ral ethmoid and right sphenoid sinus disease. mastoids visualized are unremarkable. IMPRESSION: 1. No evidence of intracranial masses hemorrhages or midline shift. 2. Chronic paranasal sinus disease. RPTAT:AAJJ Physician Seferino Date Time Electronically viewed and signed by Physician Seferino on 12/23/2016 09:44 BM/
--- NOTE | 2016-12-23 10:19 | RADRPT ---
PROCEDURE: CT of the right upper extremity CLINICAL INDICATION: Right upper extremity pain and swelling, open wound, cellulitis, concern for necrotizing fasciitis TECHNIQUE: Axial images through the right upper extremity without IV contrast. Coronal and sagit alton reformats. Images were interpreted at an independent PACS workstation. CTDI 58.85 mGy DLP 3537 .49 mGy-cm One or more of the following dose reduction techniques were used: Automated exposure control Adjustment of the mA and / or kV according to patient size Use of iterative reconstruction technique. COMPARISON: None available FINDINGS: Limited noncontrast CT of the right upper extremity demonstrates extensive subcutaneous soft tissue swelling and skin thickening with a small anterior skin defect noted at the level of the volar - rad ial proximal forearm (axial 118). There is no definite focal drainable fluid collection though this evaluation is limited without IV contrast. There may be some ill-defined phlegmonous changes along the volar aspect of the upper extremity at the level of the elbow (axial 38). There is no soft tis yanet gas. There is nonspecific myofascial edema throughout the visualized forearm. There is no evidence of acute fracture. There are tiny chronic-appearing intra-articular bodies phillip ng the anterior and posterior aspect of the elbow measuring 1-2 mm. A small amount of elbow joint f luid is noted. Limited assessment of the right lung is grossly unremarkable. Limited assessment of the right reymundo abdomen is grossly unremarkable. IMPRESSION: 1. Diffuse subcutaneous soft tissue swelling and skin thickening throughout the visualized right up per extremity with an anterior skin defect of the proximal forearm along with possible phlegmonous a long the volar aspect of the upper extremity at the level of the elbow. These findings suggest jose re cellulitis. No definite drainable fluid collection is identified though lack of IV contrast limi ts this evaluation. 2. No soft tissue gas to confirm a necrotizing fasciitis though this is a clinical diagnosis and ca nnot be excluded by imaging. Note is made of some myofascial edema which could reflect an infectiou s or inflammatory myositis. RPTAT: UU .Americo Pollock MD, MD Date Time Electronically viewed and signed by .Americo Pollock MD, on 12/23/2016 10:19 .K/
[2016-12-23] MEDS: LEVETIRACETAM 1000 MG (PMX) 100 ML IVPB SCH (10:41)
[2016-12-23] MEDS: VANCOMYCIN 2 GM in SOD CHLORIDE 0.9% 500 ML IVPB SCH (10:43)
[2016-12-23] MEDS: ASCORBIC ACID 500 MG TAB NGT SCH ×3 (10:43→20:21)
[2016-12-23] MEDS: THIAMINE 100 MG TAB NGT SCH ×2 (10:43→20:21)
--- NOTE | 2016-12-23 11:55 | CONS ---
Date/Time of Note Date/Time of Note DATE: 12/23/16 TIME: 11:47 Consult Date/Type/Reason Admit Date/Time Dec 21, 2016 at 20:01 Initial Consult Date Type of Consultation: Pulm/CCM Subjective Overall improved significantly. Improved renal function; improved evidence of tissue perfusion; reduced vasopressor needs; and CRP low. Objective Vital Signs Date Time Temp Pulse Resp B/P Pulse Ox O2 Delivery O2 Flow Rate FiO2 12/23/16 10:45 87 24 108/67 97 Mechanical Ventilator 12/23/16 07:45 98.5 12/23/16 05:25 30 Intake and Output 12/22/16 12/22/16 12/23/16 14:59 22:59 06:59 Intake Total 4160.66 ml 1427.20 ml 1691.25 ml Output Total 30 ml 665 ml 520 ml Balance 4130.66 ml 762.20 ml 1171.25 ml Exam HEENT: ET tube is in place. NECK: Supple, no thyromegaly, no jugular venous distention. CARDIOVASCULAR: Tachycardic, S1 and S2 with no murmurs, rubs, or gallops. LUNGS: Clear to auscultation bilaterally. ABDOMEN: Obese, soft, nontender, normoactive bowel sounds. EXTREMITIES: Normal with the exception of extensive erythema and swelling of the right arm and forearm. There are very weak pulses palpable in the right ulnar and radial. There is no obvious evidence of blister formation or bulla. Results/Medications Result Diagram: 12/23/16 0510 12/23/16 0510 Results 24 hrs Laboratory Tests Test 12/22/16 12:15 12/22/16 13:28 12/22/16 13:40 12/22/16 17:32 Lactic Acid Level 2.9 H 2.5 H Creatine Kinase 363 H C-Reactive Protein 14.6 H Bedside Glucose 250 H 200 Test 12/22/16 18:55 12/22/16 22:01 12/23/16 01:00 12/23/16 05:00 Lactic Acid Level 1.9 Bedside Glucose 163 152 Blood Gas Specimen Source Blood arterial Arterial Blood Date Drawn 12/23/2016 4:31:37 AM Arterial Blood pH (Temp corrected) 7.452 H Arterial Blood pCO2 (Temp correct) 31.7 L Arterial Blood pO2 (Temp corrected) 112.1 H Arterial Blood HCO3 21.6 L Arterial Blood Base Excess -1.4 Arterial Blood Oxygen Saturation 98.3 H Vladimir Test N/A Arterial Blood Gas Puncture Site LB Arterial Blood Carboxyhemoglobin 0.3 Arterial Blood Methemoglobin 0.4 Blood Gas A-a O2 Differential 64.6 H Oxyhemoglobin Percent 97.6 Total Hemoglobin 13.6 Blood Gas Temperature 37.0 Blood Gas Respiration Rate 20.0 Blood Gas Actual Respiration Rate 26 Blood Gas Modality VENT - AC FiO2 30.0 Blood Gas Tidal Volume 600.0 Blood Gas Low PEEP Setting 5.0 Blood Gas Inspiratory Pressure 25.0 Blood Gas Notified Whom LW Blood Gas Notified Time 12/23/2016 4:42:23 AM Test 12/23/16 05:10 12/23/16 05:13 12/23/16 10:50 White Blood Count 15.8 #H Red Blood Count 4.67 L Hemoglobin 13.2 #L Hematocrit 40.5 L Mean Corpuscular Volume 86.7 Mean Corpuscular Hemoglobin 28.3 L Mean Corpuscular Hemoglobin Concent 32.6 Red Cell Distribution Width 14.9 H Platelet Count 230 # Mean Platelet Volume 9.9 Neutrophils % 80.9 H Lymphocytes % 13.9 L Monocytes % 4.7 Eosinophils % 0.0 Basophils % 0.1 Nucleated Red Blood Cells % 0.0 Neutrophils # 12.8 H Lymphocytes # 2.2 Monocytes # 0.8 Eosinophils # 0.0 Basophils # 0.0 Nucleated Red Blood Cells # 0.0 Sodium Level 140 Potassium Level 3.8 Chloride Level 107 Carbon Dioxide Level 26 Anion Gap 11 Blood Urea Nitrogen 22 #H Creatinine 1.76 H Glucose Level 186 Lactic Acid Level 1.5 Calcium Level 7.9 L Bedside Glucose 169 139 Medications Current Medications Acetaminophen (Tylenol Tab) 650 mg Q6H PRN PO PAIN AND OR ELEVATED TEMP Last administered on 12/22/16t 12:44; Admin Dose 650 MG; Start 12/21/16 at 21:00 Acetaminophen/ Hydrocodone Bitart (Fisk (5/325)) 1 tab Q6H PRN PO MODERATE PAIN; Start 12/21/16 at 21:00 Morphine Sulfate (morphine) 3 mg Q3H PRN IV PAIN; Start 12/21/16 at 21:00 Ondansetron HCl (Zofran Inj) 4 mg Q6H PRN IV NAUSEA AND/OR VOMITING; Start at 21:00 Pantoprazole 40 mg 40 mg DAILY@06 PO Last administered on 12/22/16 06:15; Admin Dose 40 MG; Start 12/22/16 at 06:00; Status Future Hold Propofol (Diprivan) 100 ml @ 2.934 mls/ hr Q12H IV Last administered on 19:00; Admin Dose 8.802 MLS/HR; Start 12/22/16 at 00:45 Lorazepam 1 mg 1 mg Q6H PRN IV SEIZURE; Start 12/22/16 at 01:00 Levetiracetam 100 ml @ 400 mls/hr Q12 IVPB Last administered on 12/23/16 10:41 ; Admin Dose 400 MLS/HR; Start 12/22/16 at 09:00 Multivitamins 10 ml/Thiamine HCl 100 mg/Folic Acid 1 mg/Sodium Chloride 1,011.2 ml @ 125 mls/ hr DAILY@09 IVPB Last administered on 12/23/16 05:41; Admin Dose 125 MLS/HR; Start 12/22/16 at 09:00 Midazolam HCl 50 ml @ 1 mls/hr TITRATE IV Last administered on 12/23/16 08:49; Admin Dose 10 MLS/HR; Start 12/22/16 at 00:45 Norepinephrine 16 mg/Dextrose 500 ml @ 1.87 mls/hr TITRATE PRN IV SBP BELOW 90mmHg Last administered on 12/22/16 10:05; Admin Dose 52.5 MLS/HR; Start at 07:00 Phenylephrine HCl 40 mg/Dextrose 500 ml @ 75 mls/hr TITRATE IV Last administered on 12/22/16 15:52; Admin Dose 150 MLS/HR; Start 12/22/16 at 07:00 Pantoprazole 80 mg/Sodium Chloride 100 ml @ 10 mls/hr Q10H IV Last administered on 12/23/16 04:19; Admin Dose 10 MLS/HR; Start 12/22/16 at 07:30 Vancomycin HCl/ Sodium Chloride (Vancocin/NS) 500 ml @ 125 mls/hr Q24H IVPB Last administered on 12/23/16 10:43; Admin Dose 125 MLS/HR; Start 12/22/16 at 09: 00; Stop 12/23/16 at 19:00 Insulin Aspart (Novolog Insulin Pen) NOVOLOG *MILD* ALGORI... Q4 SC Last administered on 12/23/16 05:47; Admin Dose 1 UNIT; Start 12/22/16 at 13:00 Ascorbic Acid (Vitamin C) 1,000 mg TID NGT Last administered on 12/23/16 10:43 ; Admin Dose 1,000 MG; Start 12/22/16 at 13:00 Thiamine HCl (Vitamin B1) 200 mg BID NGT Last administered on 12/23/16 10:43; Admin Dose 200 MG; Start 12/22/16 at 12:00 Hydrocortisone 100 mg 100 mg Q8 IV Last administered on 12/23/16 05:41; Admin Dose 100 MG; Start 12/22/16 at 14:00 Fentanyl 100 ml @ 10 mls/hr TITRATE IV Last administered on 12/22/16 13:41; Admin Dose 10 MLS/HR; Start 12/22/16 at 12:00 Clindamycin HCl/ Dextrose (Cleocin 900 Mg/ D5W (Pmx)) 50 ml @ 50 mls/hr Q6 IVPB Last administered on 12/23/16 05:40; Admin Dose 50 MLS/HR; Start 12/22/16 at 12 :00 Diphenhydramine HCl 50 mg 50 mg Q4 PRN IV ALLERGIC REACTION Last administered on 12/22/16 14:27; Admin Dose 50 MG; Start 12/22/16 at 14:00 Imipenem/ Cilastatin Sodium 100 ml @ 100 mls/hr Q8 IVPB Last administered on 05:40; Admin Dose 100 MLS/HR; Start 12/22/16 at 22:00 Sodium Bicarbonate 150 meq/Dextrose 1,150 ml @ 150 mls/hr Q7H40M IV Last administered on 12/22/16 21:54; Admin Dose 150 MLS/HR; Start 12/22/16 at 21:30 Vancomycin HCl/ Sodium Chloride (Vancocin/NS) 500 ml @ 125 mls/hr Q36H IVPB ; Start 12/24/16 at 22:00 Assessment/Plan Additional Assessment/Plan IMPRESSION: 1. Septic shock secondary to a severe skin and soft tissue infection involving the right upper extremity now with low concern for necrotizing fasciitis. At this point, his LRINEC score is much below 6. 2. Multiorgan systems failure as evidenced by acute renal failure, lactic acidosis and respiratory failure--> all markedly improved. 3. Respiratory failure requiring intubation. 4. Acute renal failure, likely prerenal versus acute tubular necrosis--> also much improved. 5. Mild rhabdomyolysis--> also improved 6. Elevated troponin-- demand ischemia 7. History of IV drug use. RECOMMENDATIONS: 1. Vent support and changes with efforts to wean soon. 2. Follow CRP CK and lactic acid. 3. Continue abx; follow cx's 4. Continue high-dose Vit C; thiamine and hydrocortisone with plans to taper soon 5. Am lab/CXR 35 min cc time TAB CARLSON MD Dec 23, 2016 11:55
--- NOTE | 2016-12-23 13:05 | QN ---
Documentation Comment I was called out of the emergency department to room 104 to remove an IO from the right lower extremity. The patient no longer requires IO access as there is more long-term access available. HPI: Please note the history and physical exam is limited as the patient is intubated at this time. The patient does respond to pain. He does not open eyes. He moves purposefully and did bend his right leg as the IO was being removed. I/O removal: I removed the IO from the right lower extremity without difficulty. There was slight oozing of serous fluid. A sterile dressing was applied. There was no blood loss. The patient tolerated the entire procedure. NUVIA KESSLER MD Dec 23, 2016 13:05
--- NOTE | 2016-12-23 14:21 | RADRPT ---
Echocardiogram Report Patient Name: TYSON OCASIO Gender: Male Date: 1975 Study Date: 22-Dec-2016 Computer Game Programmer: DELMA Location: I Ref. Physician: JH NUÑEZ Quality: Technically Difficult Study Procedures: Transthoracic echocardiogram examination. Indications: Positive troponins, septic shock, IVDA. 2D/M Mode Doppler Measurement Value Normal Range Measurement Value Normal Range LVPWd 2D 1.2 0.6 - 1.1 cm AV Peak Simón 0.9 m/sec IVSd 2D 1.2 0.6 - 1.1 cm AV Peak PG 3.3 mmHg LVOT Peak Simón 0.7 m/sec PV Peak Simón 1.2 m/sec PV Peak PG 6.0 mmHg Findings Left Ventricle: Normal left ventricular cavity size. Hyperdynamic left ventricular systolic function. Mild concentric left ventricular hypertrophy. The left ventricular ejection fraction is visually estimated at 70 %. Right Ventricle: Normal right ventricular size. Normal right ventricular systolic function. Left Atrium: The left atrium is normal in size and appearance. Right Atrium: The right atrium is normal in size and appearance. Atrial Septum: Normal atrial septum. Mitral Valve: Normal appearance and function of the mitral valve with trace physiologic regurgitation. Aortic Valve: Normal appearance and function of the aortic valve. No hemodynamically significant aortic stenosis by Doppler. No aortic regurgitation. Tricuspid Valve: Normal appearance of the tricuspid valve. No evidence of tricuspid regurgitation. Pulmonic Valve: Normal pulmonic valve appearance and function with trivial (physiologic) regurgitation. No evidence of pulmonic regurgitation. Pericardium: Normal pericardium with no significant pericardial effusion. Aorta: Normal aortic root. IVC: Inferior vena cava without respiratory collapse, however, patient on ventilator. Pulmonary Artery: Normal pulmonary artery size. Conclusions 1.Poor Acoustic Windows. 2.Normal left ventricular cavity size. Hyperdynamic left ventricular systolic function. Mild concentric left ventricular hypertrophy. The left ventricular ejection fraction is visually estimated at 70 %. 3.Diastolic function could not be assessed due to tachycardia. 4.Normal right ventricular size. Normal right ventricular systolic function. 5.Normal appearance and function of the mitral valve with trace physiologic regurgitation. 6.Normal appearance and function of the aortic valve. No hemodynamically significant aortic stenosis by Doppler. No aortic regurgitation. 7.Normal appearance of the tricuspid valve. No evidence of tricuspid regurgitation. 8.Normal pericardium with no significant pericardial effusion. Electronically Signed By: Rodriguez Cheek 23-Dec-2016 14:20:40 -0700 Patient Name: TYSON OCASIO Study Date: 22-Dec-2016 [id number]
--- NOTE | 2016-12-23 14:35 | RADRPT ---
PROCEDURE: XR Chest. CLINICAL INDICATION: Shortness of breath TECHNIQUE: Single view of the chest COMPARISON: Chest radiograph December 22, 2016 FINDINGS: The tip of the endotracheal tube is 6 cm above the marcia. Enteric tube courses just beyond the GE junction by approximately 2-3 cm. There is no focal consolidation. The heart size is normal. There is no pleural effusion. There is no pneumothorax. There is no acute osseous abnormality. IMPRESSION: 1. No focal consolidation. 2. Lines and tubes as above noting the tip of the enteric tube is 2-3 cm beyond the GE junction and should be advanced as clinically indicated. RPTAT: UU .Americo Pollock MD, MD Date Time Electronically viewed and signed by .Americo Pollock MD, on 12/23/2016 14:35 .K/
[2016-12-23] MEDS: FENTAnyl (DRIP) 1000 mcg/100mL 100 ML IV SCH (15:26)
--- NOTE | 2016-12-23 15:51 | CONS ---
DATE OF ADMISSION: 12/21/2016 DATE OF CONSULTATION: 12/23/2016 REASON FOR CONSULTATION: Elevated troponin. Thank you, Dr. Jabier Guzman, for cardiology consultation. HISTORY OF PRESENT ILLNESS: The patient is a 41-year-old gentleman who initially presented to [facility] with pain and swelling in the right arm, and was subsequently diagnosed with cellulitis and transf erred to [facility] for further management. Meanwhile, the patient went into resp iratory distress, and had to be intubated for airway protection. The patient is unable to give any history, since he is intubated, so most of the history will be obt ained from review of medical records and recommendations will be based on objective evaluation of di agnostic tests, EKG, chest x-ray and labs. PAST MEDICAL HISTORY: Significant for intravenous drug abuse. SOCIAL HISTORY: IV drug abuse; no other social history could be obtained since the patient is intub ated. FAMILY HISTORY: Unable to obtain. ALLERGIES: 1. PIPERACILLIN 2. Tazobactam. CURRENT MEDICATIONS: 1. Protonix. 2. Vancomycin. 3. Keppra. 4. Propofol. 5. Insulin. 6. Clindamycin. 7. Hydrocortisone. 8. Imipenem. 9. Fentanyl. REVIEW OF SYSTEMS: Unremarkable except as mentioned in the HPI. OBJECTIVE: VITAL SIGNS: Temperature is 98.7, heart rate 81, blood pressure 104/61 mmHg, breathing at 24 on a v entilator, saturating 98%. GENERAL: Patient nonverbal and intubated. NECK: No JVD or carotid bruit. CARDIOVASCULAR: Regular rate and rhythm, no murmur, rub or gallop. CHEST: Mechanical breath sounds heard bilaterally. ABDOMEN: Soft. Bowel sounds are present. There is no organomegaly. EXTREMITIES: No pedal edema. Pedal pulses are felt bilaterally. DIAGNOSTICS: Review of surveillance monitor, shows sinus tachycardia. Chest x-ray shows no cardiomegaly; no congestion, infiltrate or pleural effusion. LABORATORY DATA: WBC 15.8, hemoglobin 13.8, hematocrit 40.5, platelets 230. Sodium 140, potassium 3.8, chloride 107, CO2 of 26, BUN 22, creatinine 1.76, calcium 7.9. Troponin 0.6. ASSESSMENT AND PLAN: A 41-year-old gentleman with: 1. Respiratory failure. 2. Elevated troponin. 3. Abnormal electrocardiogram. 4. History of intravenous drug abuse. 5. Cellulitis of the right upper arm with positive wound culture for Staphylococcus aureus. 6. monitoring analyst shows sinus tachycardia and hypotension; is off all vasopressors. 7. He has mildly elevated troponin, which is most likely secondary to underlying sepsis and renal f ailure, very unlikely myocardial in nature; however will trend troponins and will get an echo done t o assess for systolic function, and to rule out segmental wall motion abnormality and pulmonary and pericardial disease. RECOMMENDATIONS: 1. Trend troponin. 2. Echocardiogram to assess for systolic function and to rule out for pulmonary hypertension and pe ricardial disease. 3. Continue vent support. 4. If hypotensive, recommend 50 mL of 25% albumin p.r.n. 5. Continue antibiotics as scheduled. 6. Continue Solu Cortef. 7. Continue vent support and wean as tolerated. Dictated By: DEQUAN MORIN MD SR/NTS Conf#: [id number] DID#: [id number]
--- NOTE | 2016-12-23 16:30 | PN ---
Date/Time of Note Date/Time of Note DATE: 12/23/16 TIME: 16:28 Assessment/Plan VTE Prophylaxis VTE Prophylaxis Intervention: other Lines/Catheters IV Catheter Type (from Nrs): Intraosseous Central line still needed: Yes Urinary Cath still in place: Yes Reason Cath still needed: other (indicate) Assessment/Plan Chief Complaint/Hosp Course A/P SEPTIC SHOCK IVDA SEIZURE LINO VDRF s/p low bp PLAN FLUID PRESSOR PULMONARY ID per surgery Problems: Subjective 24 Hr Interval Summary Subjective hx not possible: other (on vent) Cardiovascular: no complaints Exam/Review of Systems Vital Signs Vitals Vital Signs Date Time Temp Pulse Resp B/P Pulse Ox O2 Delivery O2 Flow Rate FiO2 12/23/16 16:00 84 12/23/16 15:30 20 103/60 99 Mechanical Ventilator 12/23/16 11:00 98.7 12/23/16 08:00 30 Intake and Output 12/22/16 12/22/16 12/23/16 14:59 22:59 06:59 Intake Total 4160.66 ml 1427.20 ml 1691.25 ml Output Total 30 ml 665 ml 520 ml Balance 4130.66 ml 762.20 ml 1171.25 ml Exam Neck: supple Respiratory: clear to auscultation Cardiovascular: regular rate and rhythm Gastrointestinal: bowel sounds (+), soft Extremities: edema (rt arm) Results Result Diagram: 12/23/16 0510 12/23/16 0510 Results 24 hrs Laboratory Tests Test 12/22/16 17:32 12/22/16 18:55 12/22/16 22:01 12/23/16 01:00 Bedside Glucose 200 163 152 Lactic Acid Level 1.9 Test 12/23/16 05:00 12/23/16 05:10 12/23/16 05:13 12/23/16 10:50 Blood Gas Specimen Source Blood arterial Arterial Blood Date Drawn 12/23/2016 4:31:37 AM Arterial Blood pH (Temp corrected) 7.452 H Arterial Blood pCO2 (Temp correct) 31.7 L Arterial Blood pO2 (Temp corrected) 112.1 H Arterial Blood HCO3 21.6 L Arterial Blood Base Excess -1.4 Arterial Blood Oxygen Saturation 98.3 H Vladimir Test N/A Arterial Blood Gas Puncture Site LB Arterial Blood Carboxyhemoglobin 0.3 Arterial Blood Methemoglobin 0.4 Blood Gas A-a O2 Differential 64.6 H Oxyhemoglobin Percent 97.6 Total Hemoglobin 13.6 Blood Gas Temperature 37.0 Blood Gas Respiration Rate 20.0 Blood Gas Actual Respiration Rate 26 Blood Gas Modality VENT - AC FiO2 30.0 Blood Gas Tidal Volume 600.0 Blood Gas Low PEEP Setting 5.0 Blood Gas Inspiratory Pressure 25.0 Blood Gas Notified Whom LW Blood Gas Notified Time 12/23/2016 4:42:23 AM White Blood Count 15.8 #H Red Blood Count 4.67 L Hemoglobin 13.2 #L Hematocrit 40.5 L Mean Corpuscular Volume 86.7 Mean Corpuscular Hemoglobin 28.3 L Mean Corpuscular Hemoglobin Concent 32.6 Red Cell Distribution Width 14.9 H Platelet Count 230 # Mean Platelet Volume 9.9 Neutrophils % 80.9 H Lymphocytes % 13.9 L Monocytes % 4.7 Eosinophils % 0.0 Basophils % 0.1 Nucleated Red Blood Cells % 0.0 Neutrophils # 12.8 H Lymphocytes # 2.2 Monocytes # 0.8 Eosinophils # 0.0 Basophils # 0.0 Nucleated Red Blood Cells # 0.0 Sodium Level 140 Potassium Level 3.8 Chloride Level 107 Carbon Dioxide Level 26 Anion Gap 11 Blood Urea Nitrogen 22 #H Creatinine 1.76 H Glucose Level 186 Lactic Acid Level 1.5 Calcium Level 7.9 L B-Type Natriuretic Peptide 472 H Bedside Glucose 169 139 Test 12/23/16 13:32 Bedside Glucose 158 Medications Medications Current Medications Acetaminophen (Tylenol Tab) 650 mg Q6H PRN PO PAIN AND OR ELEVATED TEMP Last administered on 12/22/16 12:44; Admin Dose 650 MG; Start 12/21/16 at 21:00 Acetaminophen/ Hydrocodone Bitart ([place] (5/325)) 1 tab Q6H PRN PO MODERATE PAIN; Start 12/21/16 at 21:00 Morphine Sulfate (morphine) 3 mg Q3H PRN IV PAIN; Start 12/21/16 at 21:00 Ondansetron HCl 4 mg 4 mg Q6H PRN IV NAUSEA AND/OR VOMITING; Start 12/21/16 at 21:00 Propofol (Diprivan) 100 ml @ 2.934 mls/ hr Q12H IV Last administered on 19:00; Admin Dose 8.802 MLS/HR; Start 12/22/16 at 00:45 Lorazepam 1 mg 1 mg Q6H PRN IV SEIZURE; Start 12/22/16 at 01:00 Levetiracetam 100 ml @ 400 mls/hr Q12 IVPB Last administered on 12/23/16 10:41 ; Admin Dose 400 MLS/HR; Start 12/22/16 at 09:00 Multivitamins 10 ml/Thiamine HCl 100 mg/Folic Acid 1 mg/Sodium Chloride 1,011.2 ml @ 125 mls/ hr DAILY@09 IVPB Last administered on 12/23/16 05:41; Admin Dose 125 MLS/HR; Start 12/22/16 at 09:00 Midazolam HCl 50 ml @ 1 mls/hr TITRATE IV Last administered on 12/23/16 08:49; Admin Dose 10 MLS/HR; Start 12/22/16 at 00:45 Norepinephrine 16 mg/Dextrose 500 ml @ 1.87 mls/hr TITRATE PRN IV SBP BELOW 90mmHg Last administered on 12/22/16 10:05; Admin Dose 52.5 MLS/HR; Start at 07:00 Phenylephrine HCl 40 mg/Dextrose 500 ml @ 75 mls/hr TITRATE IV Last administered on 12/22/16 15:52; Admin Dose 150 MLS/HR; Start 12/22/16 at 07:00 Vancomycin HCl/ Sodium Chloride (Vancocin/NS) 500 ml @ 125 mls/hr Q24H IVPB Last administered on 12/23/16 10:43; Admin Dose 125 MLS/HR; Start 12/22/16 at 09: 00; Stop 12/23/16 at 19:00 Insulin Aspart (Novolog Insulin Pen) NOVOLOG *MILD* ALGORI... Q4 SC Last administered on 12/23/16 13:35; Admin Dose 1 UNIT; Start 12/22/16 at 13:00 Ascorbic Acid (Vitamin C) 1,000 mg TID NGT Last administered on 12/23/16 13:29 ; Admin Dose 1,000 MG; Start 12/22/16 at 13:00 Thiamine HCl (Vitamin B1) 200 mg BID NGT Last administered on 12/23/16 10:43; Admin Dose 200 MG; Start 12/22/16 at 12:00 Hydrocortisone 100 mg 100 mg Q8 IV Last administered on 12/23/16 14:08; Admin Dose 100 MG; Start 12/22/16 at 14:00 Fentanyl 100 ml @ 10 mls/hr TITRATE IV Last administered on 12/23/16 15:26; Admin Dose 10 MLS/HR; Start 12/22/16 at 12:00 Clindamycin HCl/ Dextrose (Cleocin 900 Mg/ D5W (Pmx)) 50 ml @ 50 mls/hr Q6 IVPB Last administered on 12/23/16 13:29; Admin Dose 50 MLS/HR; Start 12/22/16 at 12 :00 Diphenhydramine HCl 50 mg 50 mg Q4 PRN IV ALLERGIC REACTION Last administered on 12/22/16 14:27; Admin Dose 50 MG; Start 12/22/16 at 14:00 Imipenem/ Cilastatin Sodium 100 ml @ 100 mls/hr Q8 IVPB Last administered on 14:16; Admin Dose 100 MLS/HR; Start 12/22/16 at 22:00 Sodium Bicarbonate 150 meq/Dextrose 1,150 ml @ 150 mls/hr Q7H40M IV Last administered on 12/23/16 14:19; Admin Dose 150 MLS/HR; Start 12/22/16 at 21:30 Vancomycin HCl/ Sodium Chloride (Vancocin/NS) 500 ml @ 125 mls/hr Q36H IVPB ; Start 12/24/16 at 22:00 Pantoprazole (Protonix Iv) 40 mg BID@06,18 IV ; Start 12/23/16 at 18:00 Miscellaneous Information (*Rx Drug Level Order Reminder*) RANDOM VANCOMYCIN LEVEL ... ONCE ONCE XX ; Start 12/24/16 at 05:00; Stop 12/24/16 at 05:01 JH NUÑEZ MD Dec 23, 2016 16:30
--- NOTE | 2016-12-23 17:01 | CONS ---
DATE OF ADMISSION: 12/21/2016 DATE OF CONSULTATION: 12/23/2016 TYPE OF CONSULTATION: Urology. Thank you, Dr. Nuñez, for your kind referral for evaluation of seizure. HISTORY OF PRESENT ILLNESS: The patient is a 41-year-old gentleman with history of intravenous drug abuse as well as a history of seizure disorder according to the glazing machine operator, Dr. Jovel note fr om yesterday, who initially presented to [place] with complaints of right upper extremity swelling an d redness and pain after injecting drugs in the right arm. He had an incision and drainage of the a bscess there and transferred to [facility], had decompensation, progressive hyperc apneic respiratory failure requiring intubation. On 12/21/2016 at 2345, patient was found on the il otn having a seizure. Prior to this, the patient was just moved from [place]. His other past medica l history also includes history of seizures, hepatitis C, bipolar, schizophrenia. Was sleepy on admi ssion per patient. According to the nurse notes, he used to take Lamictal 200 mg, but was not taking for at least a few weeks, not clear his baseline frequency of seizures. Currently, he was put on K eppra 1000 mg twice daily and he is also on propofol as well as Versed. CURRENT MEDICATIONS: 1. Vancomycin. 2. Pantoprazole. 3. Imipenem. 4. Solu-Cortef 5. Benadryl p.r.n. 6. Insulin sliding scale. 7. Thiamine. 8. He is also on Morphine p.r.n. ALLERGIES: TAZOBACTAM AND ZOSYN. SOCIAL HISTORY: IVDA. FAMILY HISTORY: Not known. IMAGING: He had CAT scan of the brain today does not show any acute abnormality, essentially normal study. CT of the right upper extremity done today showing diffuse subcutaneous soft tissue swellin g, skin thickening suggesting severe cellulitis, no definite drainable fluid collection was identifi ed, though was done without IV contrast. No soft tissue gas seen. LABORATORY DATA: Shows a WBC count 15.8, yesterday was 24, neutrophils 81%. Hemoglobin 13, hematoc rit 40. Chemistry: BUN 22, creatinine 1.76. Rest of basic metabolic panel within normal limits to day. Liver function tests yesterday shows total protein 5.3, albumin 2.4, rest within normal limits . His troponins was elevated at 0.6 yesterday and lactate 4.5. His drug screen positive for opiate s and amphetamines. PHYSICAL EXAMINATION: VITAL SIGNS: Temperature 98.7, 93 pulse, 20 respiration, 103/60 blood pressure. GENERAL: Not in acute distress, sedated and intubated orally. HEENT: Normocephalic head. NECK: Supple. No thyromegaly. CARDIAC: Normal cardiac rhythm and sounds. LUNGS: Clear. ABDOMEN: Soft abdomen, present bowel sounds. EXTREMITIES: Normal with exception of a swollen erythematous right arm and forearm; there is a dres sing there. NEUROLOGIC: He is lethargic but arousable by mild noxious stimulation. Looks bilaterally, present response to visual threat. Pupils reactive from 3 to 2 mm bilaterally, goes back to sleep. Corneal reflexes present bilaterally. Symmetrical face. Gag is present. The patient moves all extremitie s spontaneously, somewhat less brisk fingers on the right extremities, but to noxious stimuli he is able to lift the arm and move the fingers so the strength is at least 3/5. Deep tendon reflexes see m to be present throughout 2+. Downgoing response to plantar stimulation bilaterally. IMPRESSION: Seizure disorder, status post breakthrough seizures. Apparently patient was off his se izure medication for several weeks. He used to take Lamictal but instead was put on Keppra here. W ill increase his Keppra to 1500 mg twice daily. He has sepsis, intravenous drug use, cellulitis, ab scess, status post incision and drainage of the right upper extremity. He had forgot to mention ech ocardiogram with normal volts, mild LVH. Also blood cultures negative for one day drawn a few times yesterday. We will continue current treatment, otherwise obtain EEG for evaluation of encephalopat hy to exclude any ongoing seizure activity, though it is not very likely. Thank you very much for this interesting consultation. Dictated By: KELSEY GUERRIER/JOVANNY Conf#: [id number] DID#: [id number] CC: JH NUÑEZ MD;*EndCC*
--- NOTE | 2016-12-23 17:02 | PN ---
DATE: 12/23/2016 SUBJECTIVE: No acute changes. The patient is off pressors, intubated and sedated, lying comfortably in bed. No fevers. VITAL SIGNS: Temperature 98.5, pulse 81, respirations 24, blood pressure 108/67 , saturation 97% on vent. LABORATORY DATA: WBC 15.8, H and H 13.2 and 40.5, platelets , neutrophils 80.9. No bands. BUN 22, creatinine 1.76. MICROBIOLOGY: Wound culture growing Staphylococcus aureus. Blood cultures remain negative. DIAGNOSTICS: Left upper extremity CT revealed no soft tissue gas to confirm necrotizing fasciitis. INDWELLINGS: Endotracheal tube, NG tube, Kidd catheter, right femoral triple lumen catheter. ANTIMICROBIALS: The patient is on: 1. Vancomycin. 2. Imipenem. 3. He is also on clindamycin. ALLERGIES: ZOSYN. PHYSICAL EXAMINATION: GENERAL: Well-developed, well-nourished, middle-aged man who is lying comfortably in bed. HEENT: Head atraumatic, normocephalic. Sclerae anicteric. Buccal mucosa dry. NECK: Supple, trachea midline. CHEST: Rise symmetrical. Breath sounds diminished to bases. HEART: S1, S2. ABDOMEN: Soft. Bowel tones present. EXTREMITIES: With edema. Right upper extremity with open wound status post I and D and erythema, more edematous than the left one. SKIN: No jaundice, no cyanosis and as above. ASSESSMENT: 1. Severe sepsis status post shock. 2. Right upper extremity cellulitis with abscess, status post incision and drainage with wound culture preliminary growing Staphylococcus aureus. 3. History of intravenous drug abuse and seizure disorder, likely secondary to substance abuse. 4. Acute respiratory failure, possible aspiration. PLAN: The patient is improving. He is on appropriate antibiotics. He is also on Solu-Cortef. He is being followed by multiple consultants. Wound cultures are pending. We will order urine and sputum cultures, follow chest x-ray and further recommendations per patient's clinical course. Dictated By: CLAY RODRIGUEZ BANK OFFICER for DARIUSZ WALLS MD NI/NTS Conf#: [id number] DID#: [id number] CC: JH NUÑEZ MD;*EndCC* [facility]
[2016-12-23] MEDS: PANTOPRAZOLE 40 MG INJ IV SCH (18:08)
[2016-12-23 18:25] LABS: ADD UMIC YES; URINE BILIRUBIN (Dip) NEGATIVE (NEGATIVE); URINE BLOOD (Dip) NEGATIVE (NEGATIVE); URINE COLOR YELLOW (YELLOW); URINE GLUCOSE (Dip) NEGATIVE (NEGATIVE); URINE KETONES (Dip) NEGATIVE (NEGATIVE); URINE LEUKOCYTE ESTERASE (Dip) NEGATIVE (NEGATIVE); URINE NITRITE (Dip) NEGATIVE (NEGATIVE); URINE TOTAL PROTEIN (Dip) TRACE (NEGATIVE); URINE UROBILINOGEN (Dip) 0.2 E.U./dL (0.1-1.0)
[2016-12-23 18:43] LABS: PROTEIN URINE 28.7 mg/dl (0.0-9.9); PROTEIN/CREAT RATIO 0.13 RATIO
[2016-12-23 18:48] LABS: BACTERIA,URINE FEW; TRANSITIONAL EPI CELLS,URINE MODERATE
[2016-12-23] MEDS: LEVETIRACETAM 1500 MG (PMX) 100 ML IVPB SCH (20:21)
[2016-12-24] VITALS (95 sets, daily range): BP systolic 103–143; BP diastolic 45–97; PULSE 50–86; RESP 0–24
[2016-12-24] MEDS: INSULIN ASPART [NOVOLOG] 3 ML PEN SC SCH ×6 (01:00→20:34)
[2016-12-24] MEDS: FENTAnyl (DRIP) 1000 mcg/100mL 100 ML IV SCH ×3 (01:15→20:34)
[2016-12-24] MEDS: MIDAZOLAM (DRIP) 50 mg/50 mL 50 ML IV SCH ×4 (05:14→21:41)
[2016-12-24] MEDS: HYDROCORTISONE 100 MG INJ IV SCH ×3 (05:37→21:39)
[2016-12-24] MEDS: PANTOPRAZOLE 40 MG INJ IV SCH ×2 (05:37→16:53)
[2016-12-24] MEDS: CLINDAMYCIN 900 MG/D5W (PMX) 50 ML IVPB SCH ×3 (05:37→16:56)
[2016-12-24] MEDS: IMIPENEM-CILAST 500MG IV (PMX) 100 ML IVPB SCH ×3 (05:37→21:39)
[2016-12-24 06:34] LABS: ADD SCAN DIFF NO
[2016-12-24] MEDS: PROPOFOL 100 ML IV SCH ×3 (06:35→19:11)
[2016-12-24 06:40] LABS: HEMATOCRIT 31.8 % (42.0-52.0); HEMOGLOBIN 10.4 g/dl (14.0-18.0); LYMPHOCYTES # 1.2 10^3/ul (0.8-2.9); MEAN CORPUSCULAR HEMOGLOBIN 28.7 pg (29.0-33.0); MEAN CORPUSCULAR HGB CONC 32.7 g/dl (32.0-37.0); MEAN CORPUSCULAR VOLUME 87.8 fl (82.0-101.0); MEAN PLATELET VOLUME 10.9 fl (7.4-10.4); MONOCYTE # 0.5 10^3/ul (0.3-0.9); MONOCYTES % 4.1 % (0.0-11.0); NEUTROPHIL # 10.4 10^3/ul (1.6-7.5); NEUTROPHILS % 85.4 % (39.0-77.0); PLATELET COUNT 153 10^3/UL (140-415); RED BLOOD COUNT 3.62 10^6/ul (4.70-6.10); RED CELL DISTRIBUTION WIDTH 15.2 % (11.5-14.5); WHITE BLOOD COUNT 12.2 10^3/ul (4.8-10.8)
[2016-12-24 06:48] LABS: POTASSIUM 3.7 mmol/L (3.5-5.1)
[2016-12-24 06:51] LABS: CREATININE 1.12 mg/dl (0.61-1.24)
[2016-12-24 06:52] LABS: CALCIUM 7.8 mg/dl (8.4-10.2)
[2016-12-24 06:55] LABS: C-REACTIVE PROTEIN 5.3 mg/dl (0.0-0.9)
[2016-12-24] MEDS ORDERED: GLUCAGON 1 MG INJ IM PRN (07:00)
[2016-12-24] MEDS ORDERED: GLUCOSE GEL 15 GRAM TUBE PO PRN ×2 (07:00)
[2016-12-24] MEDS ORDERED: DEXTROSE 50% 50 ML SYRINGE IV PRN ×2 (07:00)
[2016-12-24] MEDS ORDERED: GLUCOSE GEL 15 GRAM TUBE BUCCAL PRN (07:00)
[2016-12-24] MEDS: MULTIVITAMINS 10 ML, THIAMINE 100 MG, FOLIC ACID 1 MG in SOD CHLORIDE 0.9% 1,000 ML IVPB SCH (08:03)
--- NOTE | 2016-12-24 08:03 | RADRPT ---
PROCEDURE: XR Chest. CLINICAL INDICATION: Patient on ventilator. TECHNIQUE: Single portable view of the chest was obtained COMPARISON: Chest 12/23/2016 FINDINGS: Again noted is an endotracheal tube with the tip proximal the marcia. Nasogastric tube extends into the left upper quadrant of the abdomen. The heart is within normal limits in size. There is no ev idence of pulmonary vascular congestion acute lung consolidation pleural effusions or pneumothorax. IMPRESSION: 1. No significant change. 2. No evidence of acute cardiopulmonary disease. RPTAT:AAJJ Physician Seferino Date Time Electronically viewed and signed by Jeffery Clinton Physician on 12/24/2016 08:03 BM/
[2016-12-24 08:10] LABS: AADO2 Arterial 61.4 mmHg (7.0-24.0); Allen Test ACCEPTAB; Arterial Base Excess 5.6 mmol/L (-3.0-3); Arterial COHb 0.2 % (0.0-3.0); Arterial Fraction of Oxyhgb 97.1 % (93.0-99.0); Arterial HCO3 28.7 mmol/L (22.0-26.0); Arterial MetHb 0.4 % (0.0-1.5); Arterial Total Hemglobin 10.9 g/dl (12.0-18.0); MODE VENT - AC
[2016-12-24] MEDS: THIAMINE 100 MG TAB NGT SCH ×2 (09:06→20:34)
[2016-12-24] MEDS: ASCORBIC ACID 500 MG TAB NGT SCH ×3 (09:06→20:34)
[2016-12-24] MEDS: LEVETIRACETAM 1500 MG (PMX) 100 ML IVPB SCH ×2 (09:07→20:33)
[2016-12-24] MEDS ORDERED: VANCOMYCIN 2 GM in SOD CHLORIDE 0.9% 500 ML IVPB SCH ×2 (10:30→22:00)
--- NOTE | 2016-12-24 11:31 | CONS ---
Date/Time of Note Date/Time of Note DATE: 12/24/16 TIME: 11:28 Assessment/Plan Assessment/Plan Additional Assessment/Plan Chest x-ray was reviewed from today which is essentially clear. Ventilator settings; AC of 20, tidal volume 600, PEEP of 5, 30% FiO2. Assessment recommendations; 1. Patient admitted for drug overdose due to methamphetamines requiring invasive mechanical ventilation. 2. Possibly left upper cavity cellulitis. 3. Mild hypotension, improving. Due to current treatment. The patient still requiring sedation and is currently not in a position to be weaned off mechanical ventilator. Patient will warrant sedation vacation in 24 hours or less. Consultation Date/Type/Reason Admit Date/Time Dec 21, 2016 at 20:01 Initial Consult Date Type of Consultation: Pulm/CCM 24 HR Interval Summary Free Text/Dictation Patient condition remains critical , still requiring full ventilator support as well as sedation. Currently on a very small dose of Levophed for blood pressure maintenance. General exam; young male, orally intubated, sedated. Currently in no distress. Exam/Review of Systems Vital Signs Vitals Vital Signs Date Time Temp Pulse Resp B/P Pulse Ox O2 Delivery O2 Flow Rate FiO2 12/24/16 10:45 75 20 125/97 97 12/24/16 07:30 98.8 12/24/16 06:00 Mechanical Ventilator 12/24/16 05:58 30 Intake and Output 12/23/16 12/23/16 12/24/16 15:00 23:00 07:00 Intake Total 1405.56 ml 1535.532 ml 1397.944 ml Output Total 250 ml 420 ml 310 ml Balance 1155.56 ml 1115.532 ml 1087.944 ml Exam HEENT exam is; supple neck, no JVD. No lymphadenopathy. Midline trachea. No thyromegaly. Orally intubated. Dentition is fair. Pupils are midsize and reactive to light. Chest examination; clear to auscultation bilaterally. S1-S2 audible, no murmurs. Regular rhythm. Abdomen examination; soft, no organomegaly. Bowel sounds audible. No scars present. Extremity exam; there is 1+ edema involving the left upper extremity. Pulses 1 + bilaterally. ADVERTISING AGENCY MANAGER examination; patient is sedated. Results Result Diagram: 12/24/16 0500 12/24/16 0500 Results 24 hrs Laboratory Tests Test 12/23/16 13:32 12/23/16 17:40 12/23/16 17:52 12/23/16 18:10 Bedside Glucose 158 148 Urine Color YELLOW Urine Clarity CLOUDY H Urine pH 5.5 Urine Specific [place] >=1.030 H Urine Ketones NEGATIVE Urine Nitrite NEGATIVE Urine Bilirubin NEGATIVE Urine Urobilinogen 0.2 E.U./dL Urine Leukocyte Esterase NEGATIVE Urine Microscopic RBC 2-5 Urine Microscopic WBC 2-5 Urine Transitional Epithelial Cells MODERATE Urine Amorphous Urates FEW Urine Bacteria FEW Urine Hemoglobin NEGATIVE Urine Random Creatinine 217.04 Urine Random Sodium < 13 L Urine Protein/Creatinine Ratio 0.13 Urine Glucose NEGATIVE Urine Total Protein 28.7 H Troponin I 0.021 Test 12/23/16 20:27 12/24/16 01:13 12/24/16 04:00 12/24/16 05:00 Bedside Glucose 136 135 Lactic Acid Level 1.0 White Blood Count 12.2 #H Red Blood Count 3.62 #L Hemoglobin 10.4 #L Hematocrit 31.8 #L Mean Corpuscular Volume 87.8 Mean Corpuscular Hemoglobin 28.7 L Mean Corpuscular Hemoglobin Concent 32.7 Red Cell Distribution Width 15.2 H Platelet Count 153 # Mean Platelet Volume 10.9 H Neutrophils % 85.4 H Lymphocytes % 10.0 L Monocytes % 4.1 Eosinophils % 0.0 Basophils % 0.0 Nucleated Red Blood Cells % 0.0 Neutrophils # 10.4 H Lymphocytes # 1.2 Monocytes # 0.5 Eosinophils # 0.0 Basophils # 0.0 Nucleated Red Blood Cells # 0.0 Sodium Level 141 Potassium Level 3.7 Chloride Level 106 Carbon Dioxide Level 29 Anion Gap 10 Blood Urea Nitrogen 23 H Creatinine 1.12 Glucose Level 139 # Calcium Level 7.8 L C-Reactive Protein 5.3 H Random Vancomycin Level 8.6 Test 12/24/16 05:26 12/24/16 07:00 12/24/16 09:16 Bedside Glucose 151 135 Blood Gas Specimen Source Blood arterial Arterial Blood Date Drawn 12/24/2016 7:24:36 AM Arterial Blood pH (Temp corrected) 7.516 H Arterial Blood pCO2 (Temp correct) 36.3 Arterial Blood pO2 (Temp corrected) 109.9 H Arterial Blood HCO3 28.7 H Arterial Blood Base Excess 5.6 H Arterial Blood Oxygen Saturation 97.7 Vladimir Test ACCEPTAB Arterial Blood Gas Puncture Site Right Radial Arterial Blood Carboxyhemoglobin 0.2 Arterial Blood Methemoglobin 0.4 Blood Gas A-a O2 Differential 61.4 H Oxyhemoglobin Percent 97.1 Total Hemoglobin 10.9 L Blood Gas Temperature 37.0 Blood Gas Respiration Rate 20.0 Blood Gas Actual Respiration Rate 20 Blood Gas Modality VENT - AC FiO2 30.0 Blood Gas Tidal Volume 600.0 Blood Gas Low PEEP Setting 5.0 Blood Gas Notified Whom JLD Blood Gas Notified Time 12/24/2016 8:10:25 AM Medications Medications Current Medications Acetaminophen (Tylenol Tab) 650 mg Q6H PRN PO PAIN AND OR ELEVATED TEMP Last administered on 12/22/16 12:44; Admin Dose 650 MG; Start 12/21/16 at 21:00 Acetaminophen/ Hydrocodone Bitart ([place] (5/325)) 1 tab Q6H PRN PO MODERATE PAIN; Start 12/21/16 at 21:00 Morphine Sulfate (morphine) 3 mg Q3H PRN IV PAIN; Start 12/21/16 at 21:00 Ondansetron HCl 4 mg 4 mg Q6H PRN IV NAUSEA AND/OR VOMITING; Start 12/21/16 at 21:00 Propofol (Diprivan) 100 ml @ 2.934 mls/ hr Q12H IV Last administered on 06:35; Admin Dose 5.868 MLS/HR; Start 12/22/16 at 00:45 Lorazepam 1 mg 1 mg Q6H PRN IV SEIZURE; Start 12/22/16 at 01:00 Multivitamins 10 ml/Thiamine HCl 100 mg/Folic Acid 1 mg/Sodium Chloride 1,011.2 ml @ 125 mls/ hr DAILY@09 IVPB Last administered on 12/24/16 08:03; Admin Dose 125 MLS/HR; Start 12/22/16 at 09:00 Midazolam HCl 50 ml @ 1 mls/hr TITRATE IV Last administered on 12/24/16 11:07; Admin Dose 10 MLS/HR; Start 12/22/16 at 00:45 Norepinephrine 16 mg/Dextrose 500 ml @ 1.87 mls/hr TITRATE PRN IV SBP BELOW 90mmHg Last administered on 12/23/16 19:59; Admin Dose 2.01 MLS/HR; Start at 07:00 Phenylephrine HCl/ Dextrose (Deon-Syneph/D5W) 500 ml @ 75 mls/hr TITRATE IV Last administered on 12/22/16 15:52; Admin Dose 150 MLS/HR; Start 12/22/16 at 07: 00 Insulin Aspart (Novolog Insulin Pen) NOVOLOG *MILD* ALGORI... Q4 SC Last administered on 12/24/16 05:30; Admin Dose 1 UNIT; Start 12/22/16 at 13:00 Ascorbic Acid (Vitamin C) 1,000 mg TID NGT Last administered on 12/24/16 09:06 ; Admin Dose 1,000 MG; Start 12/22/16 at 13:00 Thiamine HCl (Vitamin B1) 200 mg BID NGT Last administered on 12/24/16 09:06; Admin Dose 200 MG; Start 12/22/16 at 12:00 Hydrocortisone 100 mg 100 mg Q8 IV Last administered on 12/24/16 05:37; Admin Dose 100 MG; Start 12/22/16 at 14:00 Fentanyl 100 ml @ 10 mls/hr TITRATE IV Last administered on 12/24/16 11:07; Admin Dose 10 MLS/HR; Start 12/22/16 at 12:00 Clindamycin HCl/ Dextrose (Cleocin 900 Mg/ D5W (Pmx)) 50 ml @ 50 mls/hr Q6 IVPB Last administered on 12/24/16 05:37; Admin Dose 50 MLS/HR; Start 12/22/16 at 12 :00 Diphenhydramine HCl 50 mg 50 mg Q4 PRN IV ALLERGIC REACTION Last administered on 12/22/16 14:27; Admin Dose 50 MG; Start 12/22/16 at 14:00 Imipenem/ Cilastatin Sodium 100 ml @ 100 mls/hr Q8 IVPB Last administered on 05:37; Admin Dose 100 MLS/HR; Start 12/22/16 at 22:00 Sodium Bicarbonate/ Dextrose (Na Bicarb/D5W) 1,150 ml @ 150 mls/hr Q7H40M IV Last administered on 12/23/16 21:54; Admin Dose 150 MLS/HR; Start 12/22/16 at 21: 30 Pantoprazole 40 mg 40 mg BID@06,18 IV Last administered on 12/24/16 05:37; Admin Dose 40 MG; Start 12/23/16 at 18:00 Levetiracetam (Keppra 1,500mg/ 100ml (Pmx)) 100 ml @ 400 mls/hr Q12 IVPB Last administered on 12/24/16 09:07; Admin Dose 400 MLS/HR; Start 12/23/16 at 21:00 Miscellaneous Information 1 ea NOTE XX ; Start 12/24/16 at 07:00 Glucose (Glutose) 15 gm Q15M PRN PO DECREASED GLUCOSE; Start 12/24/16 at 07:00 Glucose (Glutose) 22.5 gm Q15M PRN PO DECREASED GLUCOSE; Start 12/24/16 at 07:00 Dextrose (D50w Syringe) 25 ml Q15M PRN IV DECREASED GLUCOSE; Start 12/24/16 at 07:00 Dextrose (D50w Syringe) 50 ml Q15M PRN IV DECREASED GLUCOSE; Start 12/24/16 at 07:00 Glucagon (Glucagen) 1 mg Q15M PRN IM DECREASED GLUCOSE; Start 12/24/16 at 07:00 Glucose 15 gm 15 gm Q15M PRN BUCCAL DECREASED GLUCOSE; Start 12/24/16 at 07:00 Vancomycin HCl/ Sodium Chloride (Vancocin/NS) 500 ml @ 125 mls/hr Q24H IVPB ; Start 12/24/16 at 10:30 EDGAR IBRAHIM Dec 24, 2016 11:31
--- NOTE | 2016-12-24 12:21 | CONS ---
Date/Time of Note Date/Time of Note DATE: 12/24/16 TIME: 12:15 Assessment/Plan Assessment/Plan Chief Complaint/Hosp Course IMp: 1.Positive troponin-now trended negative/NL EF by echo this admit 2.REsp failure s/p intubation 3.Abnl ecg 4.Substance abuse 5.Celluitis-Upper extremity 6.Anemia Recc: -Tele -serial ecg's -Continue abx's and f/u cx data -Follow BP closely -Follow volume status closely -Wean vent as tolerated Problems: Consultation Date/Type/Reason Admit Date/Time Dec 21, 2016 at 20:01 Initial Consult Date 12/22/2016 Type of Consultation: Cardiology Reason for Consultation positive troponin Referring Provider: JH NUÑEZ MD Exam/Review of Systems Vital Signs Vitals Vital Signs Date Time Temp Pulse Resp B/P Pulse Ox O2 Delivery O2 Flow Rate FiO2 12/24/16 10:45 75 20 125/97 97 12/24/16 07:30 98.8 12/24/16 06:00 Mechanical Ventilator 12/24/16 05:58 30 Intake and Output 12/23/16 12/23/16 12/24/16 15:00 23:00 07:00 Intake Total 1405.56 ml 1535.532 ml 1397.944 ml Output Total 250 ml 420 ml 310 ml Balance 1155.56 ml 1115.532 ml 1087.944 ml Exam Review of Systems: CONSTITUTIONAL: No fevers, chills. PULMONARY: intubated CARDIOVASCULAR: No obvious chest pain/palpitations GASTROINTESTINAL: No nausea/vomiting. GENITOURINARY: No hematuria/dysuria. MUSCULOSKELETAL: No obvious myagias/arthalgias. PSYCHIATRIC: The patient denies depression. NEUROLOGIC: sedated Constitutional: other (sedated) Psych: no complaints ENMT: intubated Neck: jvd (9 cm water), supple Respiratory: diminished breath sounds (at bases/B) Cardiovascular: regular rate and rhythm Gastrointestinal: non-tender, soft Musculoskeletal: muscle tone (normnal) Extremities: edema (none) Neurological: other (No focal deficits) Results Result Diagram: 12/24/16 0500 12/24/16 0500 Results 24 hrs Laboratory Tests Test 12/23/16 13:32 12/23/16 17:40 12/23/16 17:52 12/23/16 18:10 Bedside Glucose 158 148 Urine Color YELLOW Urine Clarity CLOUDY H Urine pH 5.5 Urine Specific [place] >=1.030 H Urine Ketones NEGATIVE Urine Nitrite NEGATIVE Urine Bilirubin NEGATIVE Urine Urobilinogen 0.2 E.U./dL Urine Leukocyte Esterase NEGATIVE Urine Microscopic RBC 2-5 Urine Microscopic WBC 2-5 Urine Transitional Epithelial Cells MODERATE Urine Amorphous Urates FEW Urine Bacteria FEW Urine Hemoglobin NEGATIVE Urine Random Creatinine 217.04 Urine Random Sodium < 13 L Urine Protein/Creatinine Ratio 0.13 Urine Glucose NEGATIVE Urine Total Protein 28.7 H Troponin I 0.021 Test 12/23/16 20:27 12/24/16 01:13 12/24/16 04:00 12/24/16 05:00 Bedside Glucose 136 135 Lactic Acid Level 1.0 White Blood Count 12.2 #H Red Blood Count 3.62 #L Hemoglobin 10.4 #L Hematocrit 31.8 #L Mean Corpuscular Volume 87.8 Mean Corpuscular Hemoglobin 28.7 L Mean Corpuscular Hemoglobin Concent 32.7 Red Cell Distribution Width 15.2 H Platelet Count 153 # Mean Platelet Volume 10.9 H Neutrophils % 85.4 H Lymphocytes % 10.0 L Monocytes % 4.1 Eosinophils % 0.0 Basophils % 0.0 Nucleated Red Blood Cells % 0.0 Neutrophils # 10.4 H Lymphocytes # 1.2 Monocytes # 0.5 Eosinophils # 0.0 Basophils # 0.0 Nucleated Red Blood Cells # 0.0 Sodium Level 141 Potassium Level 3.7 Chloride Level 106 Carbon Dioxide Level 29 Anion Gap 10 Blood Urea Nitrogen 23 H Creatinine 1.12 Glucose Level 139 # Calcium Level 7.8 L C-Reactive Protein 5.3 H Random Vancomycin Level 8.6 Test 12/24/16 05:26 12/24/16 07:00 12/24/16 09:16 Bedside Glucose 151 135 Blood Gas Specimen Source Blood arterial Arterial Blood Date Drawn 12/24/2016 7:24:36 AM Arterial Blood pH (Temp corrected) 7.516 H Arterial Blood pCO2 (Temp correct) 36.3 Arterial Blood pO2 (Temp corrected) 109.9 H Arterial Blood HCO3 28.7 H Arterial Blood Base Excess 5.6 H Arterial Blood Oxygen Saturation 97.7 Vladimir Test ACCEPTAB Arterial Blood Gas Puncture Site Right Radial Arterial Blood Carboxyhemoglobin 0.2 Arterial Blood Methemoglobin 0.4 Blood Gas A-a O2 Differential 61.4 H Oxyhemoglobin Percent 97.1 Total Hemoglobin 10.9 L Blood Gas Temperature 37.0 Blood Gas Respiration Rate 20.0 Blood Gas Actual Respiration Rate 20 Blood Gas Modality VENT - AC FiO2 30.0 Blood Gas Tidal Volume 600.0 Blood Gas Low PEEP Setting 5.0 Blood Gas Notified Whom JLD Blood Gas Notified Time 12/24/2016 8:10:25 AM Medications Medications Current Medications Acetaminophen (Tylenol Tab) 650 mg Q6H PRN PO PAIN AND OR ELEVATED TEMP Last administered on 12/22/16 12:44; Admin Dose 650 MG; Start 12/21/16 at 21:00 Acetaminophen/ Hydrocodone Bitart ([place] (5/325)) 1 tab Q6H PRN PO MODERATE PAIN; Start 12/21/16 at 21:00 Morphine Sulfate (morphine) 3 mg Q3H PRN IV PAIN; Start 12/21/16 at 21:00 Ondansetron HCl 4 mg 4 mg Q6H PRN IV NAUSEA AND/OR VOMITING; Start 12/21/16 at 21:00 Propofol (Diprivan) 100 ml @ 2.934 mls/ hr Q12H IV Last administered on 06:35; Admin Dose 5.868 MLS/HR; Start 12/22/16 at 00:45 Lorazepam 1 mg 1 mg Q6H PRN IV SEIZURE; Start 12/22/16 at 01:00 Multivitamins 10 ml/Thiamine HCl 100 mg/Folic Acid 1 mg/Sodium Chloride 1,011.2 ml @ 125 mls/ hr DAILY@09 IVPB Last administered on 12/24/16 08:03; Admin Dose 125 MLS/HR; Start 12/22/16 at 09:00 Midazolam HCl 50 ml @ 1 mls/hr TITRATE IV Last administered on 12/24/16 11:07; Admin Dose 10 MLS/HR; Start 12/22/16 at 00:45 Norepinephrine 16 mg/Dextrose 500 ml @ 1.87 mls/hr TITRATE PRN IV SBP BELOW 90mmHg Last administered on 12/23/16 19:59; Admin Dose 2.01 MLS/HR; Start at 07:00 Phenylephrine HCl/ Dextrose (Deon-Syneph/D5W) 500 ml @ 75 mls/hr TITRATE IV Last administered on 12/22/16 15:52; Admin Dose 150 MLS/HR; Start 12/22/16 at 07: 00 Insulin Aspart (Novolog Insulin Pen) NOVOLOG *MILD* ALGORI... Q4 SC Last administered on 12/24/16 05:30; Admin Dose 1 UNIT; Start 12/22/16 at 13:00 Ascorbic Acid (Vitamin C) 1,000 mg TID NGT Last administered on 12/24/16 09:06 ; Admin Dose 1,000 MG; Start 12/22/16 at 13:00 Thiamine HCl (Vitamin B1) 200 mg BID NGT Last administered on 12/24/16 09:06; Admin Dose 200 MG; Start 12/22/16 at 12:00 Hydrocortisone 100 mg 100 mg Q8 IV Last administered on 12/24/16 05:37; Admin Dose 100 MG; Start 12/22/16 at 14:00 Fentanyl 100 ml @ 10 mls/hr TITRATE IV Last administered on 12/24/16 11:07; Admin Dose 10 MLS/HR; Start 12/22/16 at 12:00 Clindamycin HCl/ Dextrose (Cleocin 900 Mg/ D5W (Pmx)) 50 ml @ 50 mls/hr Q6 IVPB Last administered on 12/24/16 11:54; Admin Dose 50 MLS/HR; Start 12/22/16 at 12 :00 Diphenhydramine HCl 50 mg 50 mg Q4 PRN IV ALLERGIC REACTION Last administered on 12/22/16 14:27; Admin Dose 50 MG; Start 12/22/16 at 14:00 Imipenem/ Cilastatin Sodium 100 ml @ 100 mls/hr Q8 IVPB Last administered on 05:37; Admin Dose 100 MLS/HR; Start 12/22/16 at 22:00 Sodium Bicarbonate/ Dextrose (Na Bicarb/D5W) 1,150 ml @ 150 mls/hr Q7H40M IV Last administered on 12/23/16 21:54; Admin Dose 150 MLS/HR; Start 12/22/16 at 21: 30 Pantoprazole 40 mg 40 mg BID@06,18 IV Last administered on 12/24/16 05:37; Admin Dose 40 MG; Start 12/23/16 at 18:00 Levetiracetam (Keppra 1,500mg/ 100ml (Pmx)) 100 ml @ 400 mls/hr Q12 IVPB Last administered on 12/24/16t 09:07; Admin Dose 400 MLS/HR; Start 12/23/16 at 21:00 Miscellaneous Information 1 ea NOTE XX ; Start 12/24/16 at 07:00 Glucose (Glutose) 15 gm Q15M PRN PO DECREASED GLUCOSE; Start 12/24/16 at 07:00 Glucose (Glutose) 22.5 gm Q15M PRN PO DECREASED GLUCOSE; Start 12/24/16 at 07:00 Dextrose (D50w Syringe) 25 ml Q15M PRN IV DECREASED GLUCOSE; Start 12/24/16 at 07:00 Dextrose (D50w Syringe) 50 ml Q15M PRN IV DECREASED GLUCOSE; Start 12/24/16 at 07:00 Glucagon (Glucagen) 1 mg Q15M PRN IM DECREASED GLUCOSE; Start 12/24/16 at 07:00 Glucose 15 gm 15 gm Q15M PRN BUCCAL DECREASED GLUCOSE; Start 12/24/16 at 07:00 Vancomycin HCl/ Sodium Chloride (Vancocin/NS) 500 ml @ 125 mls/hr Q24H IVPB ; Start 12/24/16 at 10:30 RILEY BECERRIL Dec 24, 2016 12:21
--- NOTE | 2016-12-24 12:35 | PN ---
DATE: 12/24/2016 The patient has been afebrile for the last 24 hours. He remains intubated and critically ill. LABORATORY DATA: His white count has come down to 12,200. PHYSICAL EXAMINATION: The right upper extremity is markedly improved with much less induration and erythema. IMAGING: CT scan of the upper extremity shows a cellulitis without a drainable fluid collection. PLAN: Continue medical therapy. Resolution of his right upper extremity cellulitis is expected bas ed on the patient's response to medical management. Dictated By: ALEXANDRU OSPINA/JOVANNY Conf#: [id number] DID#: [id number]
--- NOTE | 2016-12-24 14:21 | RADRPT ---
AMENDMENT: 12/24/2016 3:11:28 PM Mike Regalado Md The endotracheal tube tip is 5 cm above the marcia. PROCEDURE: Chest Radiograph. CLINICAL INDICATION: Endotracheal tube placement. Nasogastric tube placement TECHNIQUE: Single frontal chest radiograph. COMPARISON: Chest radiograph 12/24/2016 at 06:04 a.m. FINDINGS: Multiple monitoring wires overlie the chest as does the external portions of the stent, which limit evaluation of the internal catheters. The endotracheal tube and nasogastric tube are likely within stable position, though the distal tips are not well evaluated on this study. There is no infiltrat e or effusion identified. The bones are intact. IMPRESSION: 1. Limited evaluation of endotracheal tube and nasogastric tube due to overlying artifact. 2. No evidence of acute cardiopulmonary disease. RPTAT: KK .Mike Regalado MD, MD Date Time Electronically viewed and signed by .Mike Regalado MD, MD on 12/24/2016 15:11 .R/
--- NOTE | 2016-12-24 14:56 | PN ---
DATE: 12/24/2016 INFECTIOUS DISEASE PROGRESS NOTE SUBJECTIVE: No events overnight. No fevers. The patient is intubated, sedated , in no distress. VITAL SIGNS: Temperature 98.8, pulse 75, respirations 21, blood pressure 125/97 , saturation 97% on vent. INDWELLINGS: Endotracheal tube, NG tube, Kidd, right femoral triple-lumen catheter. MICROBIOLOGY: Right upper arm wound culture growing MRSA. ANTIMICROBIALS: The patient is on: 1. IV vancomycin. 2. Imipenem 3. Clindamycin. PHYSICAL EXAMINATION: GENERAL: This is an obese, well-developed, middle-aged man who is lying comfortably in bed. HEENT: Head atraumatic, normocephalic. Sclerae anicteric. Buccal mucosa dry. NECK: Supple, trachea midline. CHEST: Rise symmetrical. Breath sounds diminished to bases. HEART: S1, S2. ABDOMEN: Soft. Bowel sounds present. EXTREMITIES: With right upper extremity edema and erythema. ASSESSMENT: 1. Resolving sepsis status post septic shock. 2. Right upper extremity methicillin-resistant Staphylococcus aureus cellulitis with abscess, status post incision and drainage. 3. History of IV drug abuse. 4. Respiratory failure, possibly aspiration. PLAN: The patient is improving. We are going to discontinue clindamycin. Continue him on vancomycin. Continue other antibiotics for now. Follow sputum cultures. Dictated By: CLAY RODRIGUEZ CLASSICS TEACHER for DARIUSZ KHAN/JOVANNY Conf#: [id number] DID#: [id number] MTDD
--- NOTE | 2016-12-24 18:20 | CONS ---
Date/Time of Note Date/Time of Note DATE: 12/24/16 TIME: 18:18 Consult Date/Type/Reason Admit Date/Time Dec 21, 2016 at 20:01 Initial Consult Date Type of Consultation: neurology Ordering Provider: JH NUÑEZ MD Subjective no seizures, sedated Objective Vital Signs Date Time Temp Pulse Resp B/P Pulse Ox O2 Delivery O2 Flow Rate FiO2 12/24/16 17:14 66 20 99 12/24/16 16:45 124/62 12/24/16 16:00 98.9 12/24/16 07:45 30 12/24/16 06:00 Mechanical Ventilator Intake and Output 12/23/16 12/23/16 12/24/16 15:00 23:00 07:00 Intake Total 1405.56 ml 1535.532 ml 1397.944 ml Output Total 250 ml 420 ml 310 ml Balance 1155.56 ml 1115.532 ml 1087.944 ml Results/Medications Result Diagram: 12/24/16 0500 12/24/16 0500 Results 24 hrs Laboratory Tests Test 12/23/16 20:27 12/24/16 01:13 12/24/16 04:00 12/24/16 05:00 Bedside Glucose 136 135 Lactic Acid Level 1.0 White Blood Count 12.2 #H Red Blood Count 3.62 #L Hemoglobin 10.4 #L Hematocrit 31.8 #L Mean Corpuscular Volume 87.8 Mean Corpuscular Hemoglobin 28.7 L Mean Corpuscular Hemoglobin Concent 32.7 Red Cell Distribution Width 15.2 H Platelet Count 153 # Mean Platelet Volume 10.9 H Neutrophils % 85.4 H Lymphocytes % 10.0 L Monocytes % 4.1 Eosinophils % 0.0 Basophils % 0.0 Nucleated Red Blood Cells % 0.0 Neutrophils # 10.4 H Lymphocytes # 1.2 Monocytes # 0.5 Eosinophils # 0.0 Basophils # 0.0 Nucleated Red Blood Cells # 0.0 Sodium Level 141 Potassium Level 3.7 Chloride Level 106 Carbon Dioxide Level 29 Anion Gap 10 Blood Urea Nitrogen 23 H Creatinine 1.12 Glucose Level 139 # Calcium Level 7.8 L C-Reactive Protein 5.3 H Random Vancomycin Level 8.6 Test 12/24/16 05:26 12/24/16 07:00 12/24/16 09:16 12/24/16 13:53 Bedside Glucose 151 135 101 Blood Gas Specimen Source Blood arterial Arterial Blood Date Drawn 12/24/2016 7:24:36 AM Arterial Blood pH (Temp corrected) 7.516 H Arterial Blood pCO2 (Temp correct) 36.3 Arterial Blood pO2 (Temp corrected) 109.9 H Arterial Blood HCO3 28.7 H Arterial Blood Base Excess 5.6 H Arterial Blood Oxygen Saturation 97.7 Vladimir Test ACCEPTAB Arterial Blood Gas Puncture Site Right Radial Arterial Blood Carboxyhemoglobin 0.2 Arterial Blood Methemoglobin 0.4 Blood Gas A-a O2 Differential 61.4 H Oxyhemoglobin Percent 97.1 Total Hemoglobin 10.9 L Blood Gas Temperature 37.0 Blood Gas Respiration Rate 20.0 Blood Gas Actual Respiration Rate 20 Blood Gas Modality VENT - AC FiO2 30.0 Blood Gas Tidal Volume 600.0 Blood Gas Low PEEP Setting 5.0 Blood Gas Notified Whom JLD Blood Gas Notified Time 12/24/2016 8:10:25 AM Test 12/24/16 16:58 Bedside Glucose 108 Medications Current Medications Acetaminophen (Tylenol Tab) 650 mg Q6H PRN PO PAIN AND OR ELEVATED TEMP Last administered on 12/22/16 12:44; Admin Dose 650 MG; Start 12/21/16 at 21:00 Acetaminophen/ Hydrocodone Bitart ([place] (5/325)) 1 tab Q6H PRN PO MODERATE PAIN; Start 12/21/16 at 21:00 Morphine Sulfate (morphine) 3 mg Q3H PRN IV PAIN; Start 12/21/16 at 21:00 Ondansetron HCl 4 mg 4 mg Q6H PRN IV NAUSEA AND/OR VOMITING; Start 12/21/16 at 21:00 Propofol (Diprivan) 100 ml @ 2.934 mls/ hr Q12H IV Last administered on 06:35; Admin Dose 5.868 MLS/HR; Start 12/22/16 at 00:45 Lorazepam 1 mg 1 mg Q6H PRN IV SEIZURE; Start 12/22/16 at 01:00 Multivitamins 10 ml/Thiamine HCl 100 mg/Folic Acid 1 mg/Sodium Chloride 1,011.2 ml @ 125 mls/ hr DAILY@09 IVPB Last administered on 12/24/16 08:03; Admin Dose 125 MLS/HR; Start 12/22/16 at 09:00 Midazolam HCl 50 ml @ 1 mls/hr TITRATE IV Last administered on 12/24/16 16:47; Admin Dose 10 MLS/HR; Start 12/22/16 at 00:45 Norepinephrine 16 mg/Dextrose 500 ml @ 1.87 mls/hr TITRATE PRN IV SBP BELOW 90mmHg Last administered on 12/23/16 19:59; Admin Dose 2.01 MLS/HR; Start at 07:00 Phenylephrine HCl/ Dextrose (Deon-Syneph/D5W) 500 ml @ 75 mls/hr TITRATE IV Last administered on 12/22/16 15:52; Admin Dose 150 MLS/HR; Start 12/22/16 at 07: 00 Insulin Aspart (Novolog Insulin Pen) NOVOLOG *MILD* ALGORI... Q4 SC Last administered on 12/24/16 05:30; Admin Dose 1 UNIT; Start 12/22/16 at 13:00 Ascorbic Acid (Vitamin C) 1,000 mg TID NGT Last administered on 12/24/16 14:39 ; Admin Dose 1,000 MG; Start 12/22/16 at 13:00 Thiamine HCl (Vitamin B1) 200 mg BID NGT Last administered on 12/24/16 09:06; Admin Dose 200 MG; Start 12/22/16 at 12:00 Hydrocortisone 100 mg 100 mg Q8 IV Last administered on 12/24/16 14:19; Admin Dose 100 MG; Start 12/22/16 at 14:00 Fentanyl 100 ml @ 10 mls/hr TITRATE IV Last administered on 12/24/16 11:07; Admin Dose 10 MLS/HR; Start 12/22/16 at 12:00 Clindamycin HCl/ Dextrose (Cleocin 900 Mg/ D5W (Pmx)) 50 ml @ 50 mls/hr Q6 IVPB Last administered on 12/24/16 16:56; Admin Dose 50 MLS/HR; Start 12/22/16 at 12 :00 Diphenhydramine HCl 50 mg 50 mg Q4 PRN IV ALLERGIC REACTION Last administered on 12/22/16 14:27; Admin Dose 50 MG; Start 12/22/16 at 14:00 Imipenem/ Cilastatin Sodium 100 ml @ 100 mls/hr Q8 IVPB Last administered on 14:19; Admin Dose 100 MLS/HR; Start 12/22/16 at 22:00 Sodium Bicarbonate/ Dextrose (Na Bicarb/D5W) 1,150 ml @ 150 mls/hr Q7H40M IV Last administered on 12/23/16 21:54; Admin Dose 150 MLS/HR; Start 12/22/16 at 21: 30 Pantoprazole 40 mg 40 mg BID@06,18 IV Last administered on 12/24/16 16:53; Admin Dose 40 MG; Start 12/23/16 at 18:00 Levetiracetam (Keppra 1,500mg/ 100ml (Pmx)) 100 ml @ 400 mls/hr Q12 IVPB Last administered on 12/24/16 09:07; Admin Dose 400 MLS/HR; Start 12/23/16 at 21:00 Miscellaneous Information 1 ea NOTE XX ; Start 12/24/16 at 07:00 Glucose (Glutose) 15 gm Q15M PRN PO DECREASED GLUCOSE; Start 12/24/16 at 07:00 Glucose (Glutose) 22.5 gm Q15M PRN PO DECREASED GLUCOSE; Start 12/24/16 at 07:00 Dextrose (D50w Syringe) 25 ml Q15M PRN IV DECREASED GLUCOSE; Start 12/24/16 at 07:00 Dextrose (D50w Syringe) 50 ml Q15M PRN IV DECREASED GLUCOSE; Start 12/24/16 at 07:00 Glucagon (Glucagen) 1 mg Q15M PRN IM DECREASED GLUCOSE; Start 12/24/16 at 07:00 Glucose 15 gm 15 gm Q15M PRN BUCCAL DECREASED GLUCOSE; Start 12/24/16 at 07:00 Vancomycin HCl/ Sodium Chloride (Vancocin/NS) 500 ml @ 125 mls/hr Q24H IVPB ; Start 12/25/16 at 13:00 Assessment/Plan Chief Complaint/Hosp Course PHYSICAL EXAMINATION: GENERAL: Not in acute distress, sedated and intubated orally. HEENT: Normocephalic head. NECK: Supple. No thyromegaly. CARDIAC: Normal cardiac rhythm and sounds. LUNGS: Clear. ABDOMEN: Soft abdomen, present bowel sounds. EXTREMITIES: Normal with exception of a swollen erythematous right arm and forearm; there is a dressing there. NEUROLOGIC: He is lethargic but briefly arousable by noxious stimulation. Pupils reactive from 3 to 2 mm bilaterally, goes back to sleep. Corneal reflexes present bilaterally. Symmetrical face. Gag is present. The patient moves all extremities spontaneously, somewhat less brisk fingers on the right extremities, but to noxious stimuli he is able to lift the arm and move the fingers so the strength is at least 3/5. Deep tendon reflexes seem to be present throughout 2+. Downgoing response to plantar stimulation bilaterally. IMPRESSION: Seizure disorder, status post breakthrough seizures. Apparently patient was off his seizure medication for several weeks. He used to take Lamictal but instead was put on Keppra here, continue 500 mg twice daily. He has sepsis, intravenous drug use, cellulitis, abscess, status post incision and drainage of the right upper extremity. No seizures on EEG Problems: KELSEY QUISPE MD Dec 24, 2016 18:20
--- NOTE | 2016-12-24 19:03 | PN ---
Date/Time of Note Date/Time of Note DATE: 12/24/16 TIME: 19:01 Assessment/Plan VTE Prophylaxis VTE Prophylaxis Intervention: other Lines/Catheters IV Catheter Type (from Nrsg): Intraosseous Central line still needed: Yes Urinary Cath still in place: Yes Reason Cath still needed: urinary retention Assessment/Plan Chief Complaint/Hosp Course A/P SEPTIC SHOCK IVDA SEIZURE LINO VDRF s/p low bp mrsa [employer] PULMONARY ID per surgery Problems: Subjective 24 Hr Interval Summary Subjective hx not possible: other (on vent) Exam/Review of Systems Vital Signs Vitals Vital Signs Date Time Temp Pulse Resp B/P Pulse Ox O2 Delivery O2 Flow Rate FiO2 12/24/16 17:14 66 20 99 12/24/16 16:45 124/62 12/24/16 16:00 98.9 12/24/16 07:45 30 12/24/16 06:00 Mechanical Ventilator Intake and Output 12/23/16 12/23/16 12/24/16 15:00 23:00 07:00 Intake Total 1405.56 ml 1535.532 ml 1397.944 ml Output Total 250 ml 420 ml 310 ml Balance 1155.56 ml 1115.532 ml 1087.944 ml Exam Neck: supple Respiratory: diminished breath sounds Cardiovascular: regular rate and rhythm Gastrointestinal: soft Musculoskeletal: nl extremities to inspection Extremities: edema (rt arm+) Results Result Diagram: 12/24/16 0500 12/24/16 0500 Results 24 hrs Laboratory Tests Test 12/23/16 20:27 12/24/16 01:13 12/24/16 04:00 12/24/16 05:00 Bedside Glucose 136 135 Lactic Acid Level 1.0 White Blood Count 12.2 #H Red Blood Count 3.62 #L Hemoglobin 10.4 #L Hematocrit 31.8 #L Mean Corpuscular Volume 87.8 Mean Corpuscular Hemoglobin 28.7 L Mean Corpuscular Hemoglobin Concent 32.7 Red Cell Distribution Width 15.2 H Platelet Count 153 # Mean Platelet Volume 10.9 H Neutrophils % 85.4 H Lymphocytes % 10.0 L Monocytes % 4.1 Eosinophils % 0.0 Basophils % 0.0 Nucleated Red Blood Cells % 0.0 Neutrophils # 10.4 H Lymphocytes # 1.2 Monocytes # 0.5 Eosinophils # 0.0 Basophils # 0.0 Nucleated Red Blood Cells # 0.0 Sodium Level 141 Potassium Level 3.7 Chloride Level 106 Carbon Dioxide Level 29 Anion Gap 10 Blood Urea Nitrogen 23 H Creatinine 1.12 Glucose Level 139 # Calcium Level 7.8 L C-Reactive Protein 5.3 H Random Vancomycin Level 8.6 Test 12/24/16 05:26 12/24/16 07:00 12/24/16 09:16 12/24/16 13:53 Bedside Glucose 151 135 101 Blood Gas Specimen Source Blood arterial Arterial Blood Date Drawn 12/24/2016 7:24:36 AM Arterial Blood pH (Temp corrected) 7.516 H Arterial Blood pCO2 (Temp correct) 36.3 Arterial Blood pO2 (Temp corrected) 109.9 H Arterial Blood HCO3 28.7 H Arterial Blood Base Excess 5.6 H Arterial Blood Oxygen Saturation 97.7 Vladimir Test ACCEPTAB Arterial Blood Gas Puncture Site Right Radial Arterial Blood Carboxyhemoglobin 0.2 Arterial Blood Methemoglobin 0.4 Blood Gas A-a O2 Differential 61.4 H Oxyhemoglobin Percent 97.1 Total Hemoglobin 10.9 L Blood Gas Temperature 37.0 Blood Gas Respiration Rate 20.0 Blood Gas Actual Respiration Rate 20 Blood Gas Modality VENT - AC FiO2 30.0 Blood Gas Tidal Volume 600.0 Blood Gas Low PEEP Setting 5.0 Blood Gas Notified Whom JLD Blood Gas Notified Time 12/24/2016 8:10:25 AM Test 12/24/16 16:58 Bedside Glucose 108 Medications Medications Current Medications Acetaminophen (Tylenol Tab) 650 mg Q6H PRN PO PAIN AND OR ELEVATED TEMP Last administered on 12/22/16 12:44; Admin Dose 650 MG; Start 12/21/16 at 21:00 Acetaminophen/ Hydrocodone Bitart ([place] (5/325)) 1 tab Q6H PRN PO MODERATE PAIN; Start 12/21/16 at 21:00 Morphine Sulfate (morphine) 3 mg Q3H PRN IV PAIN; Start 12/21/16 at 21:00 Ondansetron HCl 4 mg 4 mg Q6H PRN IV NAUSEA AND/OR VOMITING; Start 12/21/16 at 21:00 Propofol (Diprivan) 100 ml @ 2.934 mls/ hr Q12H IV Last administered on 06:35; Admin Dose 5.868 MLS/HR; Start 12/22/16 at 00:45 Lorazepam 1 mg 1 mg Q6H PRN IV SEIZURE; Start 12/22/16 at 01:00 Multivitamins 10 ml/Thiamine HCl 100 mg/Folic Acid 1 mg/Sodium Chloride 1,011.2 ml @ 125 mls/ hr DAILY@09 IVPB Last administered on 12/24/16 08:03; Admin Dose 125 MLS/HR; Start 12/22/16 at 09:00 Midazolam HCl 50 ml @ 1 mls/hr TITRATE IV Last administered on 12/24/16 16:47; Admin Dose 10 MLS/HR; Start 12/22/16 at 00:45 Norepinephrine 16 mg/Dextrose 500 ml @ 1.87 mls/hr TITRATE PRN IV SBP BELOW 90mmHg Last administered on 12/23/16 19:59; Admin Dose 2.01 MLS/HR; Start at 07:00 Phenylephrine HCl/ Dextrose (Deon-Syneph/D5W) 500 ml @ 75 mls/hr TITRATE IV Last administered on 12/22/16 15:52; Admin Dose 150 MLS/HR; Start 12/22/16 at 07: 00 Insulin Aspart (Novolog Insulin Pen) NOVOLOG *MILD* ALGORI... Q4 SC Last administered on 12/24/16 05:30; Admin Dose 1 UNIT; Start 12/22/16 at 13:00 Ascorbic Acid (Vitamin C) 1,000 mg TID NGT Last administered on 12/24/16 14:39 ; Admin Dose 1,000 MG; Start 12/22/16 at 13:00 Thiamine HCl (Vitamin B1) 200 mg BID NGT Last administered on 12/24/16 09:06; Admin Dose 200 MG; Start 12/22/16 at 12:00 Hydrocortisone 100 mg 100 mg Q8 IV Last administered on 12/24/16 14:19; Admin Dose 100 MG; Start 12/22/16 at 14:00 Fentanyl 100 ml @ 10 mls/hr TITRATE IV Last administered on 12/24/16 11:07; Admin Dose 10 MLS/HR; Start 12/22/16 at 12:00 Clindamycin HCl/ Dextrose (Cleocin 900 Mg/ D5W (Pmx)) 50 ml @ 50 mls/hr Q6 IVPB Last administered on 12/24/16 16:56; Admin Dose 50 MLS/HR; Start 12/22/16 at 12 :00 Diphenhydramine HCl 50 mg 50 mg Q4 PRN IV ALLERGIC REACTION Last administered on 12/22/16 14:27; Admin Dose 50 MG; Start 12/22/16 at 14:00 Imipenem/ Cilastatin Sodium 100 ml @ 100 mls/hr Q8 IVPB Last administered on 14:19; Admin Dose 100 MLS/HR; Start 12/22/16 at 22:00 Sodium Bicarbonate/ Dextrose (Na Bicarb/D5W) 1,150 ml @ 150 mls/hr Q7H40M IV Last administered on 12/23/16 21:54; Admin Dose 150 MLS/HR; Start 12/22/16 at 21: 30 Pantoprazole 40 mg 40 mg BID@06,18 IV Last administered on 12/24/16 16:53; Admin Dose 40 MG; Start 12/23/16 at 18:00 Levetiracetam (Keppra 1,500mg/ 100ml (Pmx)) 100 ml @ 400 mls/hr Q12 IVPB Last administered on 12/24/16 09:07; Admin Dose 400 MLS/HR; Start 12/23/16 at 21:00 Miscellaneous Information 1 ea NOTE XX ; Start 12/24/16 at 07:00 Glucose (Glutose) 15 gm Q15M PRN PO DECREASED GLUCOSE; Start 12/24/16 at 07:00 Glucose (Glutose) 22.5 gm Q15M PRN PO DECREASED GLUCOSE; Start 12/24/16 at 07:00 Dextrose (D50w Syringe) 25 ml Q15M PRN IV DECREASED GLUCOSE; Start 12/24/16 at 07:00 Dextrose (D50w Syringe) 50 ml Q15M PRN IV DECREASED GLUCOSE; Start 12/24/16 at 07:00 Glucagon (Glucagen) 1 mg Q15M PRN IM DECREASED GLUCOSE; Start 12/24/16 at 07:00 Glucose 15 gm 15 gm Q15M PRN BUCCAL DECREASED GLUCOSE; Start 12/24/16 at 07:00 Vancomycin HCl/ Sodium Chloride (Vancocin/NS) 500 ml @ 125 mls/hr Q24H IVPB ; Start 12/25/16 at 13:00 JH NUÑEZ MD Dec 24, 2016 19:03
[2016-12-24] MEDS: SODIUM BICARBONATE (IV ADD) 150 MEQ in DEXTROSE 5% 1,000 ML IV SCH (19:08)
--- NOTE | 2016-12-24 20:10 | SP ---
DATE OF PROCEDURE: 12/24/2016 INDICATION: A 41-year-old gentleman with a history of seizures as well as sepsis and right upper ex tremity cellulitis secondary to intravenous drug use. Status post breakthrough seizure. Currently on Keppra, intubated. DESCRIPTION OF PROCEDURE: Routine EEG was recorded digitally. [id number] and [id number] jaron ages were recorded and reviewed. All impedances were measured and recorded. Cap electrodes were pl aced in accordance with International 10-20 system of electrode placement. FINDINGS: Symmetrically distributed background activity of low amplitude was seen ranging between 1 2 to 14 cycles per second intermixing with slower waves 2 to 4 cycles per second throughout the paradise rding. No definite response to photic stimulation. No epileptiform transients were seen. No signs of ongoing electrographic seizures or lateralized slowing. IMPRESSION: Abnormal study secondary to background slowing which could reflect presence of encephal opathy. Finding is nonspecific, possibly toxic metabolic in etiology. Please correlate clinically. Again, no seizure activity seen. Dictated By: KELSEY GUERRIER/JOVANNY Conf#: [id number] DID#: [id number]
[2016-12-25] VITALS (62 sets, daily range): BP systolic 104–177; BP diastolic 57–158; PULSE 38–97; RESP 8–28
[2016-12-25] MEDS: CLINDAMYCIN 900 MG/D5W (PMX) 50 ML IVPB SCH ×2 (00:17→05:51)
[2016-12-25] MEDS: INSULIN ASPART [NOVOLOG] 3 ML PEN SC SCH ×6 (00:27→20:31)
[2016-12-25] MEDS: MIDAZOLAM (DRIP) 50 mg/50 mL 50 ML IV SCH (02:56)
[2016-12-25 05:15] LABS: CREATININE 0.93 mg/dl (0.61-1.24)
[2016-12-25 05:19] LABS: ALBUMIN 2.5 g/dl (3.3-4.9); POTASSIUM 3.6 mmol/L (3.5-5.1)
[2016-12-25 05:21] LABS: CREATININE 0.98 mg/dl (0.61-1.24)
[2016-12-25 05:22] LABS: ALBUMIN/GLOBULIN RATIO 0.89; CALCIUM 8.4 mg/dl (8.4-10.2); TOTAL PROTEIN 5.3 g/dl (6.1-8.1)
--- NOTE | 2016-12-25 05:31 | PN ---
DATE: SUBJECTIVE: The patient remains intubated in the ICU in critical condition. The right upper extrem ity continues to improve; it is now down to normal size. Erythema is resolving quite nicely. LABORATORY DATA: Pending. IMPRESSION: Continued improvement of the right upper extremity, full resolution is expected. I landry l follow with you. Dictated By: ALEXANDRU OSPINA/JOVANNY Conf#: [id number] DID#: [id number]
[2016-12-25] MEDS: SODIUM BICARBONATE (IV ADD) 150 MEQ in DEXTROSE 5% 1,000 ML IV SCH ×4 (05:44→23:22)
[2016-12-25] MEDS: PANTOPRAZOLE 40 MG INJ IV SCH ×2 (05:51→18:01)
[2016-12-25] MEDS: HYDROCORTISONE 100 MG INJ IV SCH ×3 (05:51→21:49)
[2016-12-25] MEDS: IMIPENEM-CILAST 500MG IV (PMX) 100 ML IVPB SCH (05:51)
[2016-12-25] MEDS: FENTAnyl (DRIP) 1000 mcg/100mL 100 ML IV SCH (06:58)
[2016-12-25] MEDS: LEVETIRACETAM 1500 MG (PMX) 100 ML IVPB SCH ×2 (08:17→20:14)
[2016-12-25] MEDS: ASCORBIC ACID 500 MG TAB NGT SCH ×3 (08:17→20:14)
[2016-12-25] MEDS: THIAMINE 100 MG TAB NGT SCH ×2 (08:17→20:14)
--- NOTE | 2016-12-25 08:28 | CONS ---
Date/Time of Note Date/Time of Note DATE: 12/25/16 TIME: 08:26 Assessment/Plan Assessment/Plan Additional Assessment/Plan Ventilator settings; AC of 20, tidal volume 600, PEEP of 5, 30% FiO2. Patient currently on fentanyl and Versed drips have been discontinued. Assessment recommendations; 1. Patient admitted for respiratory failure due to multidrug overdose. 2. Has remained hemodynamically stable, off sedation patient is exhibiting good mental status and not exhibiting any signs of agitation or drug withdrawal. 3. Possibly mild cellulitis involving the left upper extremity. Continue to hold sedation. With the patient is completely awake and alert he will be switched over to CPAP mode and likely will be extubated sometime today. Meanwhile continue current supportive care. Consultation Date/Type/Reason Admit Date/Time Dec 21, 2016 at 20:01 Type of Consultation: Pulmonary/critical care Referring Provider: JH NUÑEZ MD 24 HR Interval Summary Free Text/Dictation Patient condition remains critical. He has been taken off sedation short while ago and has good mental status. Patient has remained hemodynamically stable. General exam; young male, orally intubated, awake and alert. Currently in no distress. Exam/Review of Systems Vital Signs Vitals Vital Signs Date Time Temp Pulse Resp B/P Pulse Ox O2 Delivery O2 Flow Rate FiO2 12/25/16 07:00 98.4 56 20 146/87 100 12/25/16 05:02 30 12/25/16 04:00 Mechanical Ventilator Intake and Output 12/24/16 12/24/16 12/25/16 15:00 23:00 07:00 Intake Total 1061.944 ml 1309.612 ml 1122.274 ml Output Total 370 ml 350 ml 380 ml Balance 691.944 ml 959.612 ml 742.274 ml Exam HEENT exam is; supple neck, no JVD. No lymphadenopathy. Midline trachea. No thyromegaly. Orally intubated. Has good dentition. Pupils are midsize and reactive to light. Chest examination; clear to auscultation bilaterally. S1-S2 audible, no murmurs. Regular rhythm. Abdomen examination; soft, nontender. No organomegaly. Bowel sounds audible. Extremity examination; no peripheral edema. Pulses 1+ bilaterally. MATERIALS PLANNING ANALYST examination; patient is awake follows simple commands moves all 4 extremities. Results Result Diagram: 12/24/16 0500 12/25/16 0400 Results 24 hrs Laboratory Tests Test 12/24/16 09:16 12/24/16 13:53 12/24/16 16:58 12/24/16 20:32 Bedside Glucose 135 101 108 113 Test 12/25/16 00:26 12/25/16 04:00 12/25/16 04:36 12/25/16 08:16 Bedside Glucose 122 110 138 Sodium Level 144 Potassium Level 3.6 Chloride Level 107 Carbon Dioxide Level 28 Anion Gap 13 Blood Urea Nitrogen 23 H Creatinine 0.98 Glucose Level 120 Calcium Level 8.4 Total Bilirubin 0.0 L Direct Bilirubin 0.00 Indirect Bilirubin 0.0 Aspartate Amino Transf (AST/SGOT) 18 Alanine Aminotransferase (ALT/SGPT) 29 Alkaline Phosphatase 51 Total Protein 5.3 L Albumin 2.5 L Globulin 2.80 Albumin/Globulin Ratio 0.89 Medications Medications Current Medications Acetaminophen (Tylenol Tab) 650 mg Q6H PRN PO PAIN AND OR ELEVATED TEMP Last administered on 12/22/16 12:44; Admin Dose 650 MG; Start 12/21/16 at 21:00 Acetaminophen/ Hydrocodone Bitart ([place] (5/325)) 1 tab Q6H PRN PO MODERATE PAIN; Start 12/21/16 at 21:00 Morphine Sulfate (morphine) 3 mg Q3H PRN IV PAIN; Start 12/21/16 at 21:00 Ondansetron HCl 4 mg 4 mg Q6H PRN IV NAUSEA AND/OR VOMITING; Start 12/21/16 at 21:00 Propofol (Diprivan) 100 ml @ 2.934 mls/ hr Q12H IV Last administered on 19:11; Admin Dose 11.736 MLS/HR; Start 12/22/16 at 00:45 Lorazepam 1 mg 1 mg Q6H PRN IV SEIZURE; Start 12/22/16 at 01:00 Multivitamins 10 ml/Thiamine HCl 100 mg/Folic Acid 1 mg/Sodium Chloride 1,011.2 ml @ 125 mls/ hr DAILY@09 IVPB Last administered on 12/24/16 08:03; Admin Dose 125 MLS/HR; Start 12/22/16 at 09:00 Midazolam HCl 50 ml @ 1 mls/hr TITRATE IV Last administered on 12/25/16 02:56; Admin Dose 10 MLS/HR; Start 12/22/16 at 00:45 Norepinephrine 16 mg/Dextrose 500 ml @ 1.87 mls/hr TITRATE PRN IV SBP BELOW 90mmHg Last administered on 12/23/16 19:59; Admin Dose 2.01 MLS/HR; Start at 07:00 Phenylephrine HCl/ Dextrose (Deon-Syneph/D5W) 500 ml @ 75 mls/hr TITRATE IV Last administered on 12/22/16 15:52; Admin Dose 150 MLS/HR; Start 12/22/16 at 07: 00 Insulin Aspart (Novolog Insulin Pen) NOVOLOG *MILD* ALGORI... Q4 SC Last administered on 12/24/16 05:30; Admin Dose 1 UNIT; Start 12/22/16 at 13:00 Ascorbic Acid (Vitamin C) 1,000 mg TID NGT Last administered on 12/25/16 08:17 ; Admin Dose 1,000 MG; Start 12/22/16 at 13:00 Thiamine HCl (Vitamin B1) 200 mg BID NGT Last administered on 12/25/16 08:17; Admin Dose 200 MG; Start 12/22/16 at 12:00 Hydrocortisone 100 mg 100 mg Q8 IV Last administered on 12/25/16 05:51; Admin Dose 100 MG; Start 12/22/16 at 14:00 Fentanyl 100 ml @ 10 mls/hr TITRATE IV Last administered on 12/25/16 06:58; Admin Dose 10 MLS/HR; Start 12/22/16 at 12:00 Clindamycin HCl/ Dextrose (Cleocin 900 Mg/ D5W (Pmx)) 50 ml @ 50 mls/hr Q6 IVPB Last administered on 12/25/16 05:51; Admin Dose 50 MLS/HR; Start 12/22/16 at 12 :00 Diphenhydramine HCl 50 mg 50 mg Q4 PRN IV ALLERGIC REACTION Last administered on 12/22/16 14:27; Admin Dose 50 MG; Start 12/22/16 at 14:00 Imipenem/ Cilastatin Sodium 100 ml @ 100 mls/hr Q8 IVPB Last administered on 05:51; Admin Dose 100 MLS/HR; Start 12/22/16 at 22:00 Sodium Bicarbonate/ Dextrose (Na Bicarb/D5W) 1,150 ml @ 150 mls/hr Q7H40M IV Last administered on 12/25/16 05:44; Admin Dose 150 MLS/HR; Start 12/22/16 at 21: 30 Pantoprazole 40 mg 40 mg BID@06,18 IV Last administered on 12/25/16 05:51; Admin Dose 40 MG; Start 12/23/16 at 18:00 Levetiracetam (Keppra 1,500mg/ 100ml (Pmx)) 100 ml @ 400 mls/hr Q12 IVPB Last administered on 12/25/16 08:17; Admin Dose 400 MLS/HR; Start 12/23/16 at 21:00 Miscellaneous Information 1 ea NOTE XX ; Start 12/24/16 at 07:00 Glucose (Glutose) 15 gm Q15M PRN PO DECREASED GLUCOSE; Start 12/24/16 at 07:00 Glucose (Glutose) 22.5 gm Q15M PRN PO DECREASED GLUCOSE; Start 12/24/16 at 07:00 Dextrose (D50w Syringe) 25 ml Q15M PRN IV DECREASED GLUCOSE; Start 12/24/16 at 07:00 Dextrose (D50w Syringe) 50 ml Q15M PRN IV DECREASED GLUCOSE; Start 12/24/16 at 07:00 Glucagon (Glucagen) 1 mg Q15M PRN IM DECREASED GLUCOSE; Start 12/24/16 at 07:00 Glucose 15 gm 15 gm Q15M PRN BUCCAL DECREASED GLUCOSE; Start 12/24/16 at 07:00 Vancomycin HCl/ Sodium Chloride (Vancocin/NS) 500 ml @ 125 mls/hr Q24H IVPB ; Start 12/25/16 at 13:00 EDGAR IBRAHIM Dec 25, 2016 08:28
[2016-12-25] MEDS: MULTIVITAMINS 10 ML, THIAMINE 100 MG, FOLIC ACID 1 MG in SOD CHLORIDE 0.9% 1,000 ML IVPB SCH (09:00)
[2016-12-25] MEDS: VANCOMYCIN 1 GM in NS 250 ML IVPB SCH ×2 (11:31→23:23)
[2016-12-25] MEDS: PROPOFOL 100 ML IV SCH ×2 (12:45→23:30)
[2016-12-25] MEDS ORDERED: VANCOMYCIN 2 GM in SOD CHLORIDE 0.9% 500 ML IVPB SCH (13:00)
--- NOTE | 2016-12-25 13:15 | PN ---
DATE: 12/25/2016 SUBJECTIVE: The patient was extubated. He is alert, looks comfortable, no fevers. No CBC this mor rolando. BUN 23, creatinine 0.98. ANTIMICROBIALS: The patient is on: 1. IV vancomycin. 2. Imipenem. 3. Clindamycin. INDWELLINGS: Right femoral triple-lumen catheter, Kidd. Right upper extremity wound culture growing MRSA. PHYSICAL EXAMINATION: GENERAL: This is an obese, well-developed, middle-aged man who is alert, in no distress. HEENT: Head atraumatic, normocephalic. Sclerae anicteric. Buccal mucosa dry. NECK: Supple, trachea midline. CHEST: Rise symmetrical. Breath sounds diminished to bases. HEART: S1, S2. ABDOMEN: Soft. Bowel tones present. EXTREMITIES: Without cyanosis and right upper extremity edema just with erythema, but overall looks better. ASSESSMENT: 1. Resolving sepsis status post shock. 2. Methicillin-resistant Staphylococcus infected right upper extremity cellulitis with abscess, sta tus post incision and drainage. 3. Status post acute respiratory failure. 4. History of IV drug abuse. PLAN: We are going to discontinue clindamycin and imipenem, keep patient on vancomycin. Continue l ocal wound care, right upper extremity elevation, anti-aspiration measures. Dictated By: CLAY RODRIGUEZ HEDIS REVIEW NURSE for DARIUSZ KHAN/JOVANNY Conf#: [id number] DID#: [id number]
--- NOTE | 2016-12-25 16:09 | CONS ---
Date/Time of Note Date/Time of Note DATE: 12/25/16 TIME: 16:05 Assessment/Plan Assessment/Plan Additional Assessment/Plan 1.Positive troponin-now trended negative/NL EF by echo this admit - no CP now- con't to follow. 2.REsp failure s/p intubation- extubated now, con't resp Rx. 3.Abnl ecg- no ischemia now. 4.Substance abuse - con't to eval for detox. 5.Celluitis-Upper extremity - on anti-Bx. 6.Anemia - H/H stable. Consultation Date/Type/Reason Admit Date/Time Dec 21, 2016 at 20:01 Initial Consult Date Type of Consultation: Pulmonary/critical care Referring Provider: JH NUÑEZ MD 24 HR Interval Summary Free Text/Dictation Extubated now - agitated- psych team to follow. ROS: No fever, no chills, no nausea, no vomiting, no diarrhea/constipation No recent weight changes No chest pain, no PND, no orthopnea No dizziness, blurred vision No thirst, no heat or cold intolerance Exam/Review of Systems Vital Signs Vitals Vital Signs Date Time Temp Pulse Resp B/P Pulse Ox O2 Delivery O2 Flow Rate FiO2 12/25/16 14:00 46 9 115/69 100 Nasal Cannula 3.0 12/25/16 12:00 97.5 12/25/16 08:30 40 Intake and Output 12/24/16 12/24/16 12/25/16 15:00 23:00 07:00 Intake Total 1061.944 ml 1309.612 ml 1122.274 ml Output Total 370 ml 350 ml 380 ml Balance 691.944 ml 959.612 ml 742.274 ml Exam General: WN/WD/NAD, AOx 2-3 HEENT: Unicetric/atraumatic/EOMI (follows commands) NECK: JVD elevated, no thyromegaly Lymph: no lymphadenopathy HEART: regular with no S3, II/ systolic murmur at apex LUNGS: Coarse sounds ABD: soft, NT, ND, +BS : Intact Neuro: non focal SKIN: chronic changes EXT: trace edema Results Result Diagram: 12/24/16 0500 12/25/16 0400 Results 24 hrs Laboratory Tests Test 12/24/16 16:58 12/24/16 20:32 12/25/16 00:26 12/25/16 04:00 Bedside Glucose 108 113 122 Sodium Level 144 Potassium Level 3.6 Chloride Level 107 Carbon Dioxide Level 28 Anion Gap 13 Blood Urea Nitrogen 23 H Creatinine 0.98 Glucose Level 120 Calcium Level 8.4 Total Bilirubin 0.0 L Direct Bilirubin 0.00 Indirect Bilirubin 0.0 Aspartate Amino Transf (AST/SGOT) 18 Alanine Aminotransferase (ALT/SGPT) 29 Alkaline Phosphatase 51 Total Protein 5.3 L Albumin 2.5 L Globulin 2.80 Albumin/Globulin Ratio 0.89 Test 12/25/16 04:36 12/25/16 08:16 12/25/16 15:25 Bedside Glucose 110 138 94 Medications Medications Current Medications Acetaminophen (Tylenol Tab) 650 mg Q6H PRN PO PAIN AND OR ELEVATED TEMP Last administered on 12/22/16 12:44; Admin Dose 650 MG; Start 12/21/16 at 21:00 Acetaminophen/ Hydrocodone Bitart ([place] (5/325)) 1 tab Q6H PRN PO MODERATE PAIN; Start 12/21/16 at 21:00 Morphine Sulfate (morphine) 3 mg Q3H PRN IV PAIN; Start 12/21/16 at 21:00 Ondansetron HCl 4 mg 4 mg Q6H PRN IV NAUSEA AND/OR VOMITING; Start 12/21/16 at 21:00 Propofol (Diprivan) 100 ml @ 2.934 mls/ hr Q12H IV Last administered on 19:11; Admin Dose 11.736 MLS/HR; Start 12/22/16 at 00:45 Lorazepam 1 mg 1 mg Q6H PRN IV SEIZURE; Start 12/22/16 at 01:00 Multivitamins 10 ml/Thiamine HCl 100 mg/Folic Acid 1 mg/Sodium Chloride 1,011.2 ml @ 125 mls/ hr DAILY@09 IVPB Last administered on 12/25/16 09:00; Admin Dose 125 MLS/HR; Start 12/22/16 at 09:00 Midazolam HCl 50 ml @ 1 mls/hr TITRATE IV Last administered on 12/25/16 02:56; Admin Dose 10 MLS/HR; Start 12/22/16 at 00:45 Norepinephrine 16 mg/Dextrose 500 ml @ 1.87 mls/hr TITRATE PRN IV SBP BELOW 90mmHg Last administered on 12/23/16 19:59; Admin Dose 2.01 MLS/HR; Start at 07:00 Phenylephrine HCl/ Dextrose (Deon-Syneph/D5W) 500 ml @ 75 mls/hr TITRATE IV Last administered on 12/22/16 15:52; Admin Dose 150 MLS/HR; Start 12/22/16 at 07: 00 Insulin Aspart (Novolog Insulin Pen) NOVOLOG *MILD* ALGORI... Q4 SC Last administered on 12/24/16 05:30; Admin Dose 1 UNIT; Start 12/22/16 at 13:00 Ascorbic Acid (Vitamin C) 1,000 mg TID NGT Last administered on 12/25/16 08:17 ; Admin Dose 1,000 MG; Start 12/22/16 at 13:00 Thiamine HCl (Vitamin B1) 200 mg BID NGT Last administered on 12/25/16 08:17; Admin Dose 200 MG; Start 12/22/16 at 12:00 Hydrocortisone 100 mg 100 mg Q8 IV Last administered on 12/25/16 15:28; Admin Dose 100 MG; Start 12/22/16 at 14:00 Fentanyl (Sublimaze) 100 ml @ 10 mls/hr TITRATE IV Last administered on 06:58; Admin Dose 10 MLS/HR; Start 12/22/16 at 12:00 Diphenhydramine HCl 50 mg 50 mg Q4 PRN IV ALLERGIC REACTION Last administered on 12/22/16 14:27; Admin Dose 50 MG; Start 12/22/16 at 14:00 Sodium Bicarbonate/ Dextrose (Na Bicarb/D5W) 1,150 ml @ 150 mls/hr Q7H40M IV Last administered on 12/25/16 05:44; Admin Dose 150 MLS/HR; Start 12/22/16 at 21: 30 Pantoprazole 40 mg 40 mg BID@06,18 IV Last administered on 12/25/16 05:51; Admin Dose 40 MG; Start 12/23/16 at 18:00 Levetiracetam (Keppra 1,500mg/ 100ml (Pmx)) 100 ml @ 400 mls/hr Q12 IVPB Last administered on 12/25/16 08:17; Admin Dose 400 MLS/HR; Start 12/23/16 at 21:00 Miscellaneous Information 1 ea NOTE XX ; Start 12/24/16 at 07:00 Glucose (Glutose) 15 gm Q15M PRN PO DECREASED GLUCOSE; Start 12/24/16 at 07:00 Glucose (Glutose) 22.5 gm Q15M PRN PO DECREASED GLUCOSE; Start 12/24/16 at 07:00 Dextrose (D50w Syringe) 25 ml Q15M PRN IV DECREASED GLUCOSE; Start 12/24/16 at 07:00 Dextrose (D50w Syringe) 50 ml Q15M PRN IV DECREASED GLUCOSE; Start 12/24/16 at 07:00 Glucagon (Glucagen) 1 mg Q15M PRN IM DECREASED GLUCOSE; Start 12/24/16 at 07:00 Glucose 15 gm 15 gm Q15M PRN BUCCAL DECREASED GLUCOSE; Start 12/24/16 at 07:00 Vancomycin HCl (Vancocin) 250 ml @ 125 mls/hr Q12H IVPB Last administered on t 11:31; Admin Dose 125 MLS/HR; Start 12/25/16 at 11:00 ROSA SILVERIO MD Dec 25, 2016 16:08
[2016-12-25] MEDS: morphine 4 MG/ML VIAL IV PRN ×3 (18:22→21:14)
--- NOTE | 2016-12-25 20:29 | PN ---
DATE: The CT scan of the right upper extremity failed to show any presence of an abscess or fluid collecti on that can be surgically drained. There was diffuse subcutaneous soft tissue swelling and phlegmon ous thickening of the soft tissue along the volar aspect of the distal portion of the right arm. Repeated examination revealed a much more localized and area of soft tissue thickening over t he volar aspect of the distal portion of the right arm. Off the respirator and afebrile with decrea sing leukocytosis. Not a candidate for any surgical intervention at this time. Dictated By: DARIN BALLESTEROS/JOVANNY Conf#: [id number] DID#: [id number]
--- NOTE | 2016-12-25 21:42 | PN ---
Date/Time of Note Date/Time of Note DATE: 12/25/16 TIME: 21:41 Assessment/Plan VTE Prophylaxis VTE Prophylaxis Intervention: other Lines/Catheters IV Catheter Type (from Nrsg): Central Line Central line still needed: Yes Urinary Cath still in place: Yes Reason Cath still needed: other (indicate) Assessment/Plan Chief Complaint/Hosp Course A/P SEPTIC SHOCK IVDA SEIZURE LINO VDRF s/p low bp mrsa PLAN FLUID PULMONARY ID per surgery ANTIBIOTIC Problems: Subjective 24 Hr Interval Summary Subjective hx not possible: other (OFF VENT) Respiratory: no complaints Cardiovascular: no complaints Exam/Review of Systems Vital Signs Vitals Vital Signs Date Time Temp Pulse Resp B/P Pulse Ox O2 Delivery O2 Flow Rate FiO2 12/25/16 21:34 95 21 12/25/16 20:00 Nasal Cannula 3.0 12/25/16 20:00 62 12/25/16 18:00 19 139/91 12/25/16 16:00 97.9 Intake and Output 12/24/16 12/24/16 12/25/16 15:00 23:00 07:00 Intake Total 1061.944 ml 1309.612 ml 1122.274 ml Output Total 370 ml 350 ml 380 ml Balance 691.944 ml 959.612 ml 742.274 ml Exam Neck: supple Respiratory: clear to auscultation Cardiovascular: regular rate and rhythm Gastrointestinal: bowel sounds (+), soft Extremities: edema (RT ARM) Results Result Diagram: 12/24/16 0500 12/25/16 0400 Results 24 hrs Laboratory Tests Test 12/25/16 00:26 12/25/16 04:00 12/25/16 04:36 12/25/16 08:16 Bedside Glucose 122 110 138 Sodium Level 144 Potassium Level 3.6 Chloride Level 107 Carbon Dioxide Level 28 Anion Gap 13 Blood Urea Nitrogen 23 H Creatinine 0.98 Glucose Level 120 Calcium Level 8.4 Total Bilirubin 0.0 L Direct Bilirubin 0.00 Indirect Bilirubin 0.0 Aspartate Amino Transf (AST/SGOT) 18 Alanine Aminotransferase (ALT/SGPT) 29 Alkaline Phosphatase 51 Total Protein 5.3 L Albumin 2.5 L Globulin 2.80 Albumin/Globulin Ratio 0.89 Test 12/25/16 15:25 12/25/16 18:03 12/25/16 20:21 Bedside Glucose 94 102 140 Medications Medications Current Medications Acetaminophen (Tylenol Tab) 650 mg Q6H PRN PO PAIN AND OR ELEVATED TEMP Last administered on 12/22/16 12:44; Admin Dose 650 MG; Start 12/21/16 at 21:00 Acetaminophen/ Hydrocodone Bitart ([place] (5/325)) 1 tab Q6H PRN PO MODERATE PAIN Last administered on 12/25/16 20:13; Admin Dose 1 TAB; Start 12/21/16 at 21 :00 Morphine Sulfate (morphine) 3 mg Q3H PRN IV PAIN Last administered on 12/25/16 21:14; Admin Dose 3 MG; Start 12/21/16 at 21:00 Ondansetron HCl 4 mg 4 mg Q6H PRN IV NAUSEA AND/OR VOMITING; Start 12/21/16 at 21:00 Propofol (Diprivan) 100 ml @ 2.934 mls/ hr Q12H IV Last administered on 19:11; Admin Dose 11.736 MLS/HR; Start 12/22/16 at 00:45 Lorazepam 1 mg 1 mg Q6H PRN IV SEIZURE; Start 12/22/16 at 01:00 Multivitamins 10 ml/Thiamine HCl 100 mg/Folic Acid 1 mg/Sodium Chloride 1,011.2 ml @ 125 mls/ hr DAILY@09 IVPB Last administered on 12/25/16 09:00; Admin Dose 125 MLS/HR; Start 12/22/16 at 09:00 Midazolam HCl 50 ml @ 1 mls/hr TITRATE IV Last administered on 12/25/16 02:56; Admin Dose 10 MLS/HR; Start 12/22/16 at 00:45 Norepinephrine 16 mg/Dextrose 500 ml @ 1.87 mls/hr TITRATE PRN IV SBP BELOW 90mmHg Last administered on 12/23/16 19:59; Admin Dose 2.01 MLS/HR; Start at 07:00 Phenylephrine HCl/ Dextrose (Deon-Syneph/D5W) 500 ml @ 75 mls/hr TITRATE IV Last administered on 12/22/16 15:52; Admin Dose 150 MLS/HR; Start 12/22/16 at 07: 00 Insulin Aspart (Novolog Insulin Pen) NOVOLOG *MILD* ALGORI... Q4 SC Last administered on 12/24/16 05:30; Admin Dose 1 UNIT; Start 12/22/16 at 13:00 Ascorbic Acid (Vitamin C) 1,000 mg TID NGT Last administered on 12/25/16 20:14 ; Admin Dose 1,000 MG; Start 12/22/16 at 13:00 Thiamine HCl (Vitamin B1) 200 mg BID NGT Last administered on 12/25/16 20:14; Admin Dose 200 MG; Start 12/22/16 at 12:00 Hydrocortisone 100 mg 100 mg Q8 IV Last administered on 12/25/16 15:28; Admin Dose 100 MG; Start 12/22/16 at 14:00 Fentanyl (Sublimaze) 100 ml @ 10 mls/hr TITRATE IV Last administered on 06:58; Admin Dose 10 MLS/HR; Start 12/22/16 at 12:00 Diphenhydramine HCl 50 mg 50 mg Q4 PRN IV ALLERGIC REACTION Last administered on 12/22/16 14:27; Admin Dose 50 MG; Start 12/22/16 at 14:00 Sodium Bicarbonate/ Dextrose (Na Bicarb/D5W) 1,150 ml @ 150 mls/hr Q7H40M IV Last administered on 12/25/16 05:44; Admin Dose 150 MLS/HR; Start 12/22/16 at 21: 30 Pantoprazole 40 mg 40 mg BID@06,18 IV Last administered on 12/25/16 18:01; Admin Dose 40 MG; Start 12/23/16 at 18:00 Levetiracetam (Keppra 1,500mg/ 100ml (Pmx)) 100 ml @ 400 mls/hr Q12 IVPB Last administered on 12/25/16 20:14; Admin Dose 400 MLS/HR; Start 12/23/16 at 21:00 Miscellaneous Information 1 ea NOTE XX ; Start 12/24/16 at 07:00 Glucose (Glutose) 15 gm Q15M PRN PO DECREASED GLUCOSE; Start 12/24/16 at 07:00 Glucose (Glutose) 22.5 gm Q15M PRN PO DECREASED GLUCOSE; Start 12/24/16 at 07:00 Dextrose (D50w Syringe) 25 ml Q15M PRN IV DECREASED GLUCOSE; Start 12/24/16 at 07:00 Dextrose (D50w Syringe) 50 ml Q15M PRN IV DECREASED GLUCOSE; Start 12/24/16 at 07:00 Glucagon (Glucagen) 1 mg Q15M PRN IM DECREASED GLUCOSE; Start 12/24/16 at 07:00 Glucose 15 gm 15 gm Q15M PRN BUCCAL DECREASED GLUCOSE; Start 12/24/16 at 07:00 Vancomycin HCl (Vancocin) 250 ml @ 125 mls/hr Q12H IVPB Last administered on t 11:31; Admin Dose 125 MLS/HR; Start 12/25/16 at 11:00 JH NUÑEZ MD Dec 25, 2016 21:42
--- NOTE | 2016-12-25 23:57 | CONS ---
Date/Time of Note Date/Time of Note DATE: 12/25/16 TIME: 23:55 Consult Date/Type/Reason Admit Date/Time Dec 21, 2016 at 20:01 Type of Consultation: neurology Ordering Provider: JH NUÑEZ MD Subjective no seizures, extubated Objective Vital Signs Date Time Temp Pulse Resp B/P Pulse Ox O2 Delivery O2 Flow Rate FiO2 12/25/16 23:00 57 26 113/57 88 Room Air 12/25/16 21:34 21 12/25/16 20:00 97.8 12/25/16 20:00 3.0 Intake and Output 12/24/16 12/24/16 12/25/16 15:00 23:00 07:00 Intake Total 1061.944 ml 1309.612 ml 1122.274 ml Output Total 370 ml 350 ml 380 ml Balance 691.944 ml 959.612 ml 742.274 ml Results/Medications Result Diagram: 12/24/16 0500 12/25/16 0400 Results 24 hrs Laboratory Tests Test 12/25/16 00:26 12/25/16 04:00 12/25/16 04:36 12/25/16 08:16 Bedside Glucose 122 110 138 Sodium Level 144 Potassium Level 3.6 Chloride Level 107 Carbon Dioxide Level 28 Anion Gap 13 Blood Urea Nitrogen 23 H Creatinine 0.98 Glucose Level 120 Calcium Level 8.4 Total Bilirubin 0.0 L Direct Bilirubin 0.00 Indirect Bilirubin 0.0 Aspartate Amino Transf (AST/SGOT) 18 Alanine Aminotransferase (ALT/SGPT) 29 Alkaline Phosphatase 51 Total Protein 5.3 L Albumin 2.5 L Globulin 2.80 Albumin/Globulin Ratio 0.89 Test 12/25/16 15:25 12/25/16 18:03 12/25/16 20:21 Bedside Glucose 94 102 140 Medications Current Medications Acetaminophen (Tylenol Tab) 650 mg Q6H PRN PO PAIN AND OR ELEVATED TEMP Last administered on 12/22/16 12:44; Admin Dose 650 MG; Start 12/21/16 at 21:00 Acetaminophen/ Hydrocodone Bitart ([place] (5/325)) 1 tab Q6H PRN PO MODERATE PAIN Last administered on 12/25/16 20:13; Admin Dose 1 TAB; Start 12/21/16 at 21 :00 Ondansetron HCl 4 mg 4 mg Q6H PRN IV NAUSEA AND/OR VOMITING; Start 12/21/16 at 21:00 Propofol (Diprivan) 100 ml @ 2.934 mls/ hr Q12H IV Last administered on 19:11; Admin Dose 11.736 MLS/HR; Start 12/22/16 at 00:45 Lorazepam 1 mg 1 mg Q6H PRN IV SEIZURE; Start 12/22/16 at 01:00 Multivitamins 10 ml/Thiamine HCl 100 mg/Folic Acid 1 mg/Sodium Chloride 1,011.2 ml @ 125 mls/ hr DAILY@09 IVPB Last administered on 12/25/16 09:00; Admin Dose 125 MLS/HR; Start 12/22/16 at 09:00 Midazolam HCl 50 ml @ 1 mls/hr TITRATE IV Last administered on 12/25/16 02:56; Admin Dose 10 MLS/HR; Start 12/22/16 at 00:45 Norepinephrine 16 mg/Dextrose 500 ml @ 1.87 mls/hr TITRATE PRN IV SBP BELOW 90mmHg Last administered on 12/23/16 19:59; Admin Dose 2.01 MLS/HR; Start at 07:00 Phenylephrine HCl/ Dextrose (Deon-Syneph/D5W) 500 ml @ 75 mls/hr TITRATE IV Last administered on 12/22/16 15:52; Admin Dose 150 MLS/HR; Start 12/22/16 at 07: 00 Insulin Aspart (Novolog Insulin Pen) NOVOLOG *MILD* ALGORI... Q4 SC Last administered on 12/24/16 05:30; Admin Dose 1 UNIT; Start 12/22/16 at 13:00 Ascorbic Acid (Vitamin C) 1,000 mg TID NGT Last administered on 12/25/16 20:14 ; Admin Dose 1,000 MG; Start 12/22/16 at 13:00 Thiamine HCl (Vitamin B1) 200 mg BID NGT Last administered on 12/25/16 20:14; Admin Dose 200 MG; Start 12/22/16 at 12:00 Hydrocortisone 100 mg 100 mg Q8 IV Last administered on 12/25/16 21:49; Admin Dose 100 MG; Start 12/22/16 at 14:00 Fentanyl (Sublimaze) 100 ml @ 10 mls/hr TITRATE IV Last administered on 06:58; Admin Dose 10 MLS/HR; Start 12/22/16 at 12:00 Diphenhydramine HCl 50 mg 50 mg Q4 PRN IV ALLERGIC REACTION Last administered on 12/22/16 14:27; Admin Dose 50 MG; Start 12/22/16 at 14:00 Sodium Bicarbonate/ Dextrose (Na Bicarb/D5W) 1,150 ml @ 150 mls/hr Q7H40M IV Last administered on 12/25/16 23:22; Admin Dose 150 MLS/HR; Start 12/22/16 at 21: 30 Pantoprazole 40 mg 40 mg BID@06,18 IV Last administered on 12/25/16 18:01; Admin Dose 40 MG; Start 12/23/16 at 18:00 Levetiracetam (Keppra 1,500mg/ 100ml (Pmx)) 100 ml @ 400 mls/hr Q12 IVPB Last administered on 12/25/16 20:14; Admin Dose 400 MLS/HR; Start 12/23/16 at 21:00 Miscellaneous Information 1 ea NOTE XX ; Start 12/24/16 at 07:00 Glucose (Glutose) 15 gm Q15M PRN PO DECREASED GLUCOSE; Start 12/24/16 at 07:00 Glucose (Glutose) 22.5 gm Q15M PRN PO DECREASED GLUCOSE; Start 12/24/16 at 07:00 Dextrose (D50w Syringe) 25 ml Q15M PRN IV DECREASED GLUCOSE; Start 12/24/16 at 07:00 Dextrose (D50w Syringe) 50 ml Q15M PRN IV DECREASED GLUCOSE; Start 12/24/16 at 07:00 Glucagon (Glucagen) 1 mg Q15M PRN IM DECREASED GLUCOSE; Start 12/24/16 at 07:00 Glucose 15 gm 15 gm Q15M PRN BUCCAL DECREASED GLUCOSE; Start 12/24/16 at 07:00 Vancomycin HCl (Vancocin) 250 ml @ 125 mls/hr Q12H IVPB Last administered on 23:23; Admin Dose 125 MLS/HR; Start 12/25/16 at 11:00 Morphine Sulfate (morphine) 5 mg Q3H PRN IV PAIN; Start 12/26/16 at 00:00 Assessment/Plan Chief Complaint/Hosp Course PHYSICAL EXAMINATION: GENERAL: Not in acute distress, c/o pain. HEENT: Normocephalic head. NECK: Supple. No thyromegaly. CARDIAC: Normal cardiac rhythm and sounds. LUNGS: Clear. ABDOMEN: Soft abdomen, present bowel sounds. EXTREMITIES: Normal with exception of a swollen erythematous right arm and forearm; there is a dressing there. NEUROLOGIC: Awake oriented x 2. Pupils reactive from 3 to 2 mm bilaterally. Corneal reflexes present bilaterally. Symmetrical face. Gag is present. The patient moves all extremities spontaneously. Deep tendon reflexes seem to be present throughout 2+. Downgoing response to plantar stimulation bilaterally. IMPRESSION: status post seizure. Pt denies any hx of seizures, stated was on lamictal for bipolar. Continue Keppra. Sepsis, intravenous drug use, cellulitis , abscess, status post incision and drainage of the right upper extremity. No seizures on EEG Problems: KELSEY QUISPE MD Dec 25, 2016 23:57
[2016-12-26] VITALS (34 sets, daily range): BP systolic 99–129; BP diastolic 54–81; PULSE 36–63; RESP 10–31
[2016-12-26] MEDS: morphine 4 MG/ML VIAL IV PRN ×6 (00:02→15:31)
[2016-12-26] MEDS: INSULIN ASPART [NOVOLOG] 3 ML PEN SC SCH ×3 (01:00→08:11)
[2016-12-26 05:00] LABS: ADD SCAN DIFF NO
[2016-12-26 05:05] LABS: BASOPHILS % 0.1 % (0.0-2.0); HEMATOCRIT 32.8 % (42.0-52.0); HEMOGLOBIN 10.8 g/dl (14.0-18.0); LYMPHOCYTES # 1.3 10^3/ul (0.8-2.9); LYMPHOCYTES % 11.6 % (15.0-51.0); MEAN CORPUSCULAR HEMOGLOBIN 28.2 pg (29.0-33.0); MEAN CORPUSCULAR HGB CONC 32.9 g/dl (32.0-37.0); MEAN CORPUSCULAR VOLUME 85.6 fl (82.0-101.0); MEAN PLATELET VOLUME 10.7 fl (7.4-10.4); MONOCYTE # 0.4 10^3/ul (0.3-0.9); NEUTROPHIL # 8.9 10^3/ul (1.6-7.5); PLATELET COUNT 165 10^3/UL (140-415); RED BLOOD COUNT 3.83 10^6/ul (4.70-6.10); RED CELL DISTRIBUTION WIDTH 14.6 % (11.5-14.5); WHITE BLOOD COUNT 10.8 10^3/ul (4.8-10.8)
[2016-12-26 05:27] LABS: POTASSIUM 3.4 mmol/L (3.5-5.1)
[2016-12-26 05:30] LABS: CREATININE 0.88 mg/dl (0.61-1.24)
[2016-12-26 05:31] LABS: CALCIUM 7.8 mg/dl (8.4-10.2)
[2016-12-26] MEDS: HYDROCORTISONE 100 MG INJ IV SCH ×2 (06:29→14:50)
[2016-12-26] MEDS: PANTOPRAZOLE 40 MG INJ IV SCH ×2 (06:29→17:22)
[2016-12-26] MEDS: MULTIVITAMINS 10 ML, THIAMINE 100 MG, FOLIC ACID 1 MG in SOD CHLORIDE 0.9% 1,000 ML IVPB SCH (08:08)
[2016-12-26] MEDS: LEVETIRACETAM 1500 MG (PMX) 100 ML IVPB SCH ×2 (08:08→21:35)
[2016-12-26] MEDS: THIAMINE 100 MG TAB NGT SCH (08:09)
[2016-12-26] MEDS: ASCORBIC ACID 500 MG TAB NGT SCH ×3 (08:09→21:35)
--- NOTE | 2016-12-26 10:21 | CONS ---
Date/Time of Note Date/Time of Note DATE: 12/26/16 TIME: 10:18 Consult Date/Type/Reason Admit Date/Time Dec 21, 2016 at 20:01 Initial Consult Date Type of Consultation: pulmonary Ordering Provider: JH NUÑEZ MD Subjective Patient awake alert oriented comfortable postextubation Objective Vital Signs Date Time Temp Pulse Resp B/P Pulse Ox O2 Delivery O2 Flow Rate FiO2 12/26/16 08:00 97.5 51 129/81 100 Nasal Cannula 2.0 12/26/16 07:00 14 12/25/16 21:34 21 Intake and Output 12/25/16 12/25/16 12/26/16 15:00 23:00 07:00 Intake Total 1190 ml 1362 ml 2325 ml Output Total 750 ml 220 ml 620 ml Balance 440 ml 1142 ml 1705 ml Exam GENERAL: Well-nourished well-developed gentleman awake alert oriented comfortable at rest talking in full and complete sentences VITAL SIGNS: per chart NECK: Supple. No JVD or lymphadenopathy. CARDIAC EXAM: S1, S2. No added sounds or murmurs. CHEST: clear bilaterally, No added sounds, rales or wheezes ABDOMEN: Soft, nontender. No guarding or rebound. EXTREMITIES: No cyanosis, clubbing, edema +1 NEUROLOGIC: Generalized weakness. Results/Medications Result Diagram: 12/26/16 0400 12/26/16 0400 Results 24 hrs Laboratory Tests Test 12/25/16 15:25 12/25/16 18:03 12/25/16 20:21 12/26/16 01:09 Bedside Glucose 94 102 140 122 Test 12/26/16 04:00 12/26/16 05:16 White Blood Count 10.8 Red Blood Count 3.83 L Hemoglobin 10.8 L Hematocrit 32.8 L Mean Corpuscular Volume 85.6 Mean Corpuscular Hemoglobin 28.2 L Mean Corpuscular Hemoglobin Concent 32.9 Red Cell Distribution Width 14.6 H Platelet Count 165 Mean Platelet Volume 10.7 H Neutrophils % 83.0 H Lymphocytes % 11.6 L Monocytes % 4.0 Eosinophils % 0.0 Basophils % 0.1 Nucleated Red Blood Cells % 0.0 Neutrophils # 8.9 H Lymphocytes # 1.3 Monocytes # 0.4 Eosinophils # 0.0 Basophils # 0.0 Nucleated Red Blood Cells # 0.0 Sodium Level 139 Potassium Level 3.4 L Chloride Level 108 Carbon Dioxide Level 29 Anion Gap 5 #L Blood Urea Nitrogen 21 H Creatinine 0.88 Glucose Level 144 Calcium Level 7.8 L Bedside Glucose 150 Medications Current Medications Acetaminophen (Tylenol Tab) 650 mg Q6H PRN PO PAIN AND OR ELEVATED TEMP Last administered on 12/22/16 12:44; Admin Dose 650 MG; Start 12/21/16 at 21:00 Acetaminophen/ Hydrocodone Bitart ([place] (5/325)) 1 tab Q6H PRN PO MODERATE PAIN Last administered on 12/25/16 20:13; Admin Dose 1 TAB; Start 12/21/16 at 21 :00 Ondansetron HCl 4 mg 4 mg Q6H PRN IV NAUSEA AND/OR VOMITING; Start 12/21/16 at 21:00 Propofol (Diprivan) 100 ml @ 2.934 mls/ hr Q12H IV Last administered on 19:11; Admin Dose 11.736 MLS/HR; Start 12/22/16 at 00:45 Lorazepam 1 mg 1 mg Q6H PRN IV SEIZURE; Start 12/22/16 at 01:00 Multivitamins 10 ml/Thiamine HCl 100 mg/Folic Acid 1 mg/Sodium Chloride 1,011.2 ml @ 125 mls/ hr DAILY@09 IVPB Last administered on 12/26/16 08:08; Admin Dose 125 MLS/HR; Start 12/22/16 at 09:00 Midazolam HCl 50 ml @ 1 mls/hr TITRATE IV Last administered on 12/25/16 02:56; Admin Dose 10 MLS/HR; Start 12/22/16 at 00:45 Norepinephrine 16 mg/Dextrose 500 ml @ 1.87 mls/hr TITRATE PRN IV SBP BELOW 90mmHg Last administered on 12/23/16 19:59; Admin Dose 2.01 MLS/HR; Start at 07:00 Phenylephrine HCl/ Dextrose (Deon-Syneph/D5W) 500 ml @ 75 mls/hr TITRATE IV Last administered on 12/22/16 15:52; Admin Dose 150 MLS/HR; Start 12/22/16 at 07: 00 Ascorbic Acid (Vitamin C) 1,000 mg TID NGT Last administered on 12/26/16 08:09 ; Admin Dose 1,000 MG; Start 12/22/16 at 13:00 Thiamine HCl (Vitamin B1) 200 mg BID NGT Last administered on 12/26/16 08:09; Admin Dose 200 MG; Start 12/22/16 at 12:00 Hydrocortisone 100 mg 100 mg Q8 IV Last administered on 12/26/16 06:29; Admin Dose 100 MG; Start 12/22/16 at 14:00 Fentanyl (Sublimaze) 100 ml @ 10 mls/hr TITRATE IV Last administered on 06:58; Admin Dose 10 MLS/HR; Start 12/22/16 at 12:00 Diphenhydramine HCl 50 mg 50 mg Q4 PRN IV ALLERGIC REACTION Last administered on 12/22/16 14:27; Admin Dose 50 MG; Start 12/22/16 at 14:00 Sodium Bicarbonate/ Dextrose (Na Bicarb/D5W) 1,150 ml @ 150 mls/hr Q7H40M IV Last administered on 12/25/16 23:22; Admin Dose 150 MLS/HR; Start 12/22/16 at 21: 30 Pantoprazole 40 mg 40 mg BID@06,18 IV Last administered on 12/26/16 06:29; Admin Dose 40 MG; Start 12/23/16 at 18:00 Levetiracetam (Keppra 1,500mg/ 100ml (Pmx)) 100 ml @ 400 mls/hr Q12 IVPB Last administered on 12/26/16 08:08; Admin Dose 400 MLS/HR; Start 12/23/16 at 21:00 Miscellaneous Information 1 ea NOTE XX ; Start 12/24/16 at 07:00 Glucose (Glutose) 15 gm Q15M PRN PO DECREASED GLUCOSE; Start 12/24/16 at 07:00 Glucose (Glutose) 22.5 gm Q15M PRN PO DECREASED GLUCOSE; Start 12/24/16 at 07:00 Dextrose (D50w Syringe) 25 ml Q15M PRN IV DECREASED GLUCOSE; Start 12/24/16 at 07:00 Dextrose (D50w Syringe) 50 ml Q15M PRN IV DECREASED GLUCOSE; Start 12/24/16 at 07:00 Glucagon (Glucagen) 1 mg Q15M PRN IM DECREASED GLUCOSE; Start 12/24/16 at 07:00 Glucose 15 gm 15 gm Q15M PRN BUCCAL DECREASED GLUCOSE; Start 12/24/16 at 07:00 Vancomycin HCl (Vancocin) 250 ml @ 125 mls/hr Q12H IVPB Last administered on 23:23; Admin Dose 125 MLS/HR; Start 12/25/16 at 11:00 Morphine Sulfate (morphine) 5 mg Q3H PRN IV PAIN Last administered on 12/26/16 09:43; Admin Dose 5 MG; Start 12/26/16 at 00:00 Quetiapine Fumarate (Seroquel) 50 mg HS PO ; Start 12/26/16 at 21:00 Assessment/Plan Chief Complaint/Hosp Course Assessment 1. Status post hypoxemic respiratory failure likely secondary to aspiration pneumonia 2. Polysubstance abuse 3. Upper extremity cellulitis no evidence of compartment syndrome 3. Hypo-kalemia Plan 1. Continue antibiotics 2. Encourage out of bed 3. Pain control 4. Incentive spirometry 5. DVT GI prophylaxis Disposition Patient stable for transfer to telemetry from pulmonary standpoint Problems: GASPER TALLEY MD, [facility] Dec 26, 2016 10:21
[2016-12-26] MEDS ORDERED: HYDROmorphONE 4 MG TAB PO PRN (10:30)
[2016-12-26] MEDS ORDERED: POTASSIUM CHLORIDE (SR) 10 MEQ TAB PO ONE (10:30)
[2016-12-26] MEDS: VANCOMYCIN 1 GM in NS 250 ML IVPB SCH (10:43)
[2016-12-26] MEDS: SODIUM BICARBONATE (IV ADD) 150 MEQ in DEXTROSE 5% 1,000 ML IV SCH ×2 (10:44→23:13)
[2016-12-26] MEDS: PROPOFOL 100 ML IV SCH (10:44)
--- NOTE | 2016-12-26 11:42 | CONS ---
Date/Time of Note Date/Time of Note DATE: 12/26/16 TIME: 11:40 Assessment/Plan Assessment/Plan Chief Complaint/Hosp Course IMp: 1.Positive troponin-now trended negative/NL EF by echo this admit 2.REsp failure s/p intubation 3.Abnl ecg 4.Substance abuse 5.Celluitis-Upper extremity 6.Anemia Recc: -Tele -serial ecg's -Continue abx's and f/u cx data -Follow BP/HR closely -Follow volume status closely -Check TSH Problems: Consultation Date/Type/Reason Admit Date/Time Dec 21, 2016 at 20:01 Initial Consult Date 12/22/2016 Type of Consultation: Cardiology Reason for Consultation positive troponin Referring Provider: JH NUÑEZ MD Exam/Review of Systems Vital Signs Vitals Vital Signs Date Time Temp Pulse Resp B/P Pulse Ox O2 Delivery O2 Flow Rate FiO2 12/26/16 08:00 97.5 51 129/81 100 Nasal Cannula 2.0 12/26/16 07:00 14 12/25/16 21:34 21 Intake and Output 12/25/16 12/25/16 12/26/16 15:00 23:00 07:00 Intake Total 1190 ml 1362 ml 2325 ml Output Total 750 ml 220 ml 620 ml Balance 440 ml 1142 ml 1705 ml Exam Review of Systems: CONSTITUTIONAL: No fevers, chills. PULMONARY: No sob CARDIOVASCULAR: No chest pain/palpitations GASTROINTESTINAL: No nausea/vomiting. GENITOURINARY: No hematuria/dysuria. MUSCULOSKELETAL: No myagias/arthalgias. PSYCHIATRIC: The patient denies depression. NEUROLOGIC: No weakness Constitutional: alert Psych: no complaints Head: normocephalic ENMT: mucosa pink and moist Neck: jvd, supple Respiratory: diminished breath sounds Cardiovascular: regular rate and rhythm Gastrointestinal: non-tender, soft Musculoskeletal: muscle tone (normal) Extremities: edema (none) Neurological: lethargic Results Result Diagram: 12/26/16 0400 12/26/16 0400 Results 24 hrs Laboratory Tests Test 12/25/16 15:25 12/25/16 18:03 12/25/16 20:21 12/26/16 01:09 Bedside Glucose 94 102 140 122 Test 12/26/16 04:00 12/26/16 05:16 White Blood Count 10.8 Red Blood Count 3.83 L Hemoglobin 10.8 L Hematocrit 32.8 L Mean Corpuscular Volume 85.6 Mean Corpuscular Hemoglobin 28.2 L Mean Corpuscular Hemoglobin Concent 32.9 Red Cell Distribution Width 14.6 H Platelet Count 165 Mean Platelet Volume 10.7 H Neutrophils % 83.0 H Lymphocytes % 11.6 L Monocytes % 4.0 Eosinophils % 0.0 Basophils % 0.1 Nucleated Red Blood Cells % 0.0 Neutrophils # 8.9 H Lymphocytes # 1.3 Monocytes # 0.4 Eosinophils # 0.0 Basophils # 0.0 Nucleated Red Blood Cells # 0.0 Sodium Level 139 Potassium Level 3.4 L Chloride Level 108 Carbon Dioxide Level 29 Anion Gap 5 #L Blood Urea Nitrogen 21 H Creatinine 0.88 Glucose Level 144 Calcium Level 7.8 L Bedside Glucose 150 Medications Medications Current Medications Acetaminophen (Tylenol Tab) 650 mg Q6H PRN PO PAIN AND OR ELEVATED TEMP Last administered on 12/22/16 12:44; Admin Dose 650 MG; Start 12/21/16 at 21:00 Ondansetron HCl 4 mg 4 mg Q6H PRN IV NAUSEA AND/OR VOMITING; Start 12/21/16 at 21:00 Propofol (Diprivan) 100 ml @ 2.934 mls/ hr Q12H IV Last administered on 19:11; Admin Dose 11.736 MLS/HR; Start 12/22/16 at 00:45 Lorazepam 1 mg 1 mg Q6H PRN IV SEIZURE; Start 12/22/16 at 01:00 Multivitamins 10 ml/Thiamine HCl 100 mg/Folic Acid 1 mg/Sodium Chloride 1,011.2 ml @ 125 mls/ hr DAILY@09 IVPB Last administered on 12/26/16 08:08; Admin Dose 125 MLS/HR; Start 12/22/16 at 09:00 Midazolam HCl 50 ml @ 1 mls/hr TITRATE IV Last administered on 12/25/16 02:56; Admin Dose 10 MLS/HR; Start 12/22/16 at 00:45 Norepinephrine 16 mg/Dextrose 500 ml @ 1.87 mls/hr TITRATE PRN IV SBP BELOW 90mmHg Last administered on 12/23/16 19:59; Admin Dose 2.01 MLS/HR; Start at 07:00 Phenylephrine HCl/ Dextrose (Deon-Syneph/D5W) 500 ml @ 75 mls/hr TITRATE IV Last administered on 12/22/16 15:52; Admin Dose 150 MLS/HR; Start 12/22/16 at 07: 00 Ascorbic Acid (Vitamin C) 1,000 mg TID NGT Last administered on 12/26/16 08:09 ; Admin Dose 1,000 MG; Start 12/22/16 at 13:00 Thiamine HCl (Vitamin B1) 200 mg BID NGT Last administered on 12/26/16 08:09; Admin Dose 200 MG; Start 12/22/16 at 12:00 Hydrocortisone 100 mg 100 mg Q8 IV Last administered on 12/26/16 06:29; Admin Dose 100 MG; Start 12/22/16 at 14:00 Fentanyl (Sublimaze) 100 ml @ 10 mls/hr TITRATE IV Last administered on 06:58; Admin Dose 10 MLS/HR; Start 12/22/16 at 12:00 Diphenhydramine HCl 50 mg 50 mg Q4 PRN IV ALLERGIC REACTION Last administered on 12/22/16 14:27; Admin Dose 50 MG; Start 12/22/16 at 14:00 Sodium Bicarbonate/ Dextrose (Na Bicarb/D5W) 1,150 ml @ 150 mls/hr Q7H40M IV Last administered on 12/26/16 10:44; Admin Dose 150 MLS/HR; Start 12/22/16 at 21: 30 Pantoprazole 40 mg 40 mg BID@06,18 IV Last administered on 12/26/16 06:29; Admin Dose 40 MG; Start 12/23/16 at 18:00 Levetiracetam (Keppra 1,500mg/ 100ml (Pmx)) 100 ml @ 400 mls/hr Q12 IVPB Last administered on 12/26/16 08:08; Admin Dose 400 MLS/HR; Start 12/23/16 at 21:00 Miscellaneous Information 1 ea NOTE XX ; Start 12/24/16 at 07:00 Glucose (Glutose) 15 gm Q15M PRN PO DECREASED GLUCOSE; Start 12/24/16 at 07:00 Glucose (Glutose) 22.5 gm Q15M PRN PO DECREASED GLUCOSE; Start 12/24/16 at 07:00 Dextrose (D50w Syringe) 25 ml Q15M PRN IV DECREASED GLUCOSE; Start 12/24/16 at 07:00 Dextrose (D50w Syringe) 50 ml Q15M PRN IV DECREASED GLUCOSE; Start 12/24/16 at 07:00 Glucagon (Glucagen) 1 mg Q15M PRN IM DECREASED GLUCOSE; Start 12/24/16 at 07:00 Glucose 15 gm 15 gm Q15M PRN BUCCAL DECREASED GLUCOSE; Start 12/24/16 at 07:00 Vancomycin HCl (Vancocin) 250 ml @ 125 mls/hr Q12H IVPB Last administered on 10:43; Admin Dose 125 MLS/HR; Start 12/25/16 at 11:00 Morphine Sulfate (morphine) 5 mg Q3H PRN IV PAIN Last administered on 12/26/16 09:43; Admin Dose 5 MG; Start 12/26/16 at 00:00 Quetiapine Fumarate (Seroquel) 50 mg HS PO ; Start 12/26/16 at 21:00 Hydromorphone HCl (Dilaudid) 4 mg Q4H PRN PO PAIN; Start 12/26/16 at 10:30 RILEY BECERRIL Dec 26, 2016 11:42
--- NOTE | 2016-12-26 14:04 | PN ---
DATE: 12/26/2016 SUBJECTIVE: No acute changes. The patient is alert, looks comfortable, feels good. Denies pain. LABORATORY: WBC today 10.8, platelets 165, neutrophils 83, BUN 21, creatinine 0.88. ANTIMICROBIALS: The patient is on IV vancomycin. INDWELLINGS: Femoral triple-lumen catheter. PHYSICAL EXAMINATION: GENERAL: Obese, well-developed, middle-aged man who is alert, in no distress. HEENT: Head atraumatic, normocephalic. Sclerae anicteric. Buccal mucosa pink. NECK: Supple. CHEST: Rise symmetrical. Breath sounds clear. HEART: S1, S2. ABDOMEN: Soft, bowel tones present. EXTREMITIES: Without cyanosis. Right upper extremity with erythema and edema. ASSESSMENT: 1. Status post septic shock. 2. Status post-acute respiratory failure. 3. Right upper extremity cellulitis with abscess incision and drainage, culture grew methicillin-re sistant Staphylococcus aureus, remains on IV vancomycin. 4. History of IV drug abuse. PLAN: The patient remains stable on appropriate antimicrobials. White blood cell count tracing ronnie n. He is being seen by multiple consultants. Follow ortho recommendations. Dictated By: CLAY RODRIGUEZ ASSOCIATE PROFESSOR [employer] for DARIUSZ KHAN/JOVANNY Conf#: [id number] DID#: [id number]
--- NOTE | 2016-12-26 18:02 | PN ---
DATE: 12/26/2016 SUBJECTIVE: The patient is continuing to improve. He is extubated and fully awake and alert. The cellulitis in his right upper extremity is all but resolved. His white blood cell count has come do wn to 10,800, still with slight left shift. IMPRESSION: Continued resolution of right forearm cellulitis, full healing is expected. PLAN: I will sign off and see again p.r.n. your request. Dictated By: ALEXANDRU OSPINA/JOVANNY Conf#: [id number] DID#: [id number]
--- NOTE | 2016-12-26 20:10 | PN ---
Date/Time of Note Date/Time of Note DATE: 12/26/16 TIME: 20:08 Assessment/Plan VTE Prophylaxis VTE Prophylaxis Intervention: other Lines/Catheters IV Catheter Type (from Nrs): Peripheral IV Urinary Cath still in place: Yes Reason Cath still needed: other (indicate) Assessment/Plan Chief Complaint/Hosp Course A/P SEPTIC SHOCK IVDA SEIZURE LINO VDRF s/p low bp mrsa PLAN FLUID PULMONARY ID per surgery ANTIBIOTIC kcl Problems: Subjective 24 Hr Interval Summary Cardiovascular: no complaints Gastrointestinal: no complaints Musculoskeletal: bone/joint pain Exam/Review of Systems Vital Signs Vitals Vital Signs Date Time Temp Pulse Resp B/P Pulse Ox O2 Delivery O2 Flow Rate FiO2 12/26/16 18:00 53 10 99 12/26/16 16:32 97.7 Nasal Cannula 2.0 12/26/16 16:30 127/75 12/25/16 21:34 21 Intake and Output 12/25/16 12/25/16 12/26/16 14:59 22:59 06:59 Intake Total 1085 ml 1475 ml 1637 ml Output Total 750 ml 260 ml Balance 335 ml 1215 ml 1637 ml Exam Respiratory: clear to auscultation Cardiovascular: regular rate and rhythm Gastrointestinal: soft Musculoskeletal: nl extremities to inspection Extremities: edema (rt arm ) Results Result Diagram: 12/26/16 0400 12/26/16 0400 Results 24 hrs Laboratory Tests Test 12/25/16 20:21 12/26/16 01:09 12/26/16 04:00 12/26/16 05:16 Bedside Glucose 140 122 150 White Blood Count 10.8 Red Blood Count 3.83 L Hemoglobin 10.8 L Hematocrit 32.8 L Mean Corpuscular Volume 85.6 Mean Corpuscular Hemoglobin 28.2 L Mean Corpuscular Hemoglobin Concent 32.9 Red Cell Distribution Width 14.6 H Platelet Count 165 Mean Platelet Volume 10.7 H Neutrophils % 83.0 H Lymphocytes % 11.6 L Monocytes % 4.0 Eosinophils % 0.0 Basophils % 0.1 Nucleated Red Blood Cells % 0.0 Neutrophils # 8.9 H Lymphocytes # 1.3 Monocytes # 0.4 Eosinophils # 0.0 Basophils # 0.0 Nucleated Red Blood Cells # 0.0 Sodium Level 139 Potassium Level 3.4 L Chloride Level 108 Carbon Dioxide Level 29 Anion Gap 5 #L Blood Urea Nitrogen 21 H Creatinine 0.88 Glucose Level 144 Calcium Level 7.8 L Thyroid Stimulating Hormone (TSH) 0.274 L Medications Medications Current Medications Acetaminophen (Tylenol Tab) 650 mg Q6H PRN PO PAIN AND OR ELEVATED TEMP Last administered on 12/22/16 12:44; Admin Dose 650 MG; Start 12/21/16 at 21:00 Ondansetron HCl (Zofran Inj) 4 mg Q6H PRN IV NAUSEA AND/OR VOMITING; Start at 21:00 Lorazepam 1 mg 1 mg Q6H PRN IV SEIZURE; Start 12/22/16 at 01:00 Multivitamins/ Thiamine HCl/ Folic Acid/Sodium Chloride (Mvi-12 Adult/ Vitamin B1/Folic Acid/NS) 1,011.2 ml @ 125 mls/ hr DAILY@09 IVPB Last administered on 12/26/16 08:08; Admin Dose 125 MLS/HR; Start 12/22/16 at 09:00 Ascorbic Acid (Vitamin C) 1,000 mg TID NGT Last administered on 12/26/16 12:36 ; Admin Dose 1,000 MG; Start 12/22/16 at 13:00 Thiamine HCl (Vitamin B1) 200 mg BID NGT Last administered on 12/26/16 08:09; Admin Dose 200 MG; Start 12/22/16 at 12:00 Hydrocortisone (Solu-Cortef) 100 mg Q8 IV Last administered on 12/26/16 14:50; Admin Dose 100 MG; Start 12/22/16 at 14:00 Diphenhydramine HCl 50 mg 50 mg Q4 PRN IV ALLERGIC REACTION Last administered on 12/22/16 14:27; Admin Dose 50 MG; Start 12/22/16 at 14:00 Sodium Bicarbonate/ Dextrose (Na Bicarb/D5W) 1,150 ml @ 150 mls/hr Q7H40M IV Last administered on 12/26/16 10:44; Admin Dose 150 MLS/HR; Start 12/22/16 at 21: 30 Pantoprazole 40 mg 40 mg BID@06,18 IV Last administered on 12/26/16 17:22; Admin Dose 40 MG; Start 12/23/16 at 18:00 Levetiracetam (Keppra 1,500mg/ 100ml (Pmx)) 100 ml @ 400 mls/hr Q12 IVPB Last administered on 12/26/16 08:08; Admin Dose 400 MLS/HR; Start 12/23/16 at 21:00 Miscellaneous Information 1 ea 1 ea NOTE XX ; Start 12/24/16 at 07:00 Vancomycin HCl (Vancocin) 250 ml @ 125 mls/hr Q12H IVPB Last administered on 10:43; Admin Dose 125 MLS/HR; Start 12/25/16 at 11:00 Quetiapine Fumarate (Seroquel) 50 mg HS PO ; Start 12/26/16 at 21:00 Hydromorphone HCl (Dilaudid) 4 mg Q4H PRN PO PAIN Last administered on 17:15; Admin Dose 4 MG; Start 12/26/16 at 10:30 Miscellaneous Information (*Rx Drug Level Order Reminder*) VANCO TR LEVEL PRIOR... ONCE ONCE XX ; Start 12/26/16 at 22:00; Stop 12/26/16 at 22:01 Morphine Sulfate (morphine) 5 mg Q3H PRN IV PAIN; Start 12/26/16 at 17:00 JH NUÑEZ MD Dec 26, 2016 20:09
[2016-12-26] MEDS: morphine 10 MG INJ IV PRN (20:22)
[2016-12-26] MEDS: QUETIAPINE 25 MG TAB PO SCH (21:35)
[2016-12-27] VITALS (12 sets, daily range): BP systolic 102–142; BP diastolic 50–75; PULSE 40–69; RESP 18–19
[2016-12-27] MEDS: VANCOMYCIN 1 GM in NS 250 ML IVPB SCH (00:46)
[2016-12-27] MEDS: HYDROCORTISONE 100 MG INJ IV SCH ×4 (00:52→21:24)
[2016-12-27] MEDS: THIAMINE 100 MG TAB NGT SCH ×3 (00:52→21:26)
[2016-12-27] MEDS: morphine 10 MG INJ IV PRN ×6 (01:01→21:25)
[2016-12-27] MEDS: SODIUM BICARBONATE (IV ADD) 150 MEQ in DEXTROSE 5% 1,000 ML IV SCH ×3 (03:40→20:19)
[2016-12-27] MEDS: PANTOPRAZOLE 40 MG INJ IV SCH (06:06)
[2016-12-27 09:15] LABS: CREATININE 0.8 mg/dl (0.61-1.24)
[2016-12-27 09:16] LABS: CALCIUM 7.8 mg/dl (8.4-10.2)
[2016-12-27 09:28] LABS: POTASSIUM 2.9 mmol/L (3.5-5.1)
[2016-12-27] MEDS: LEVETIRACETAM 1500 MG (PMX) 100 ML IVPB SCH ×2 (09:44→21:24)
[2016-12-27] MEDS: ASCORBIC ACID 500 MG TAB NGT SCH ×3 (09:51→21:26)
[2016-12-27] MEDS: MULTIVITAMINS 10 ML, THIAMINE 100 MG, FOLIC ACID 1 MG in SOD CHLORIDE 0.9% 1,000 ML IVPB SCH (09:52)
[2016-12-27] MEDS ORDERED: VANCOMYCIN 1.25 GM in SOD CHLORIDE 0.9% 250 ML IVPB SCH (11:00)
--- NOTE | 2016-12-27 11:03 | PN ---
DATE: SUBJECTIVE: The patient is fully awake and alert. He is ambulatory and his leukocytosis has resolv ed. The cellulitis of the forearm has resolved as well. There being no further surgical issues, I will sign off and see again p.r.n. at your request. Dictated By: ALEXANDRU OSPINA/JOVANNY Conf#: [id number] DID#: [id number]
[2016-12-27] MEDS ORDERED: POTASSIUM CHLORIDE (SR) 20 MEQ TAB PO STA (11:49)
--- NOTE | 2016-12-27 16:00 | CONS ---
Date/Time of Note Date/Time of Note DATE: 12/27/16 TIME: 15:59 Assessment/Plan Assessment/Plan Chief Complaint/Hosp Course SUBJECTIVE: No acute changes. The patient is sleeping, looks comfortable ANTIMICROBIALS: The patient is on IV vancomycin. INDWELLINGS: Femoral triple-lumen catheter. PHYSICAL EXAMINATION: GENERAL: Obese, well-developed, middle-aged man who is alert, in no distress. HEENT: Head atraumatic, normocephalic. Sclerae anicteric. Buccal mucosa pink. NECK: Supple. CHEST: Rise symmetrical. Breath sounds clear. HEART: S1, S2. ABDOMEN: Soft, bowel tones present. EXTREMITIES: Without cyanosis. Right upper extremity with erythema and edema. ASSESSMENT: 1. Status post septic shock. 2. Status post-acute respiratory failure. 3. Right upper extremity cellulitis with abscess incision and drainage, culture grew methicillin-resistant Staphylococcus aureus, remains on IV vancomycin. 4. History of IV drug abuse. PLAN: The patient remains stable, continue Vanco, local wound care, follow ortho recommendations. DW staff Problems: Consultation Date/Type/Reason Admit Date/Time Dec 21, 2016 at 20:01 Initial Consult Date Type of Consultation: ID Referring Provider: JH NUÑEZ MD Exam/Review of Systems Vital Signs Vitals Vital Signs Date Time Temp Pulse Resp B/P Pulse Ox O2 Delivery O2 Flow Rate FiO2 12/27/16 12:11 98.1 60 18 117/63 90 12/26/16 22:00 Nasal Cannula 2.0 12/25/16 21:34 21 Intake and Output 12/26/16 12/26/16 12/27/16 15:00 23:00 07:00 Intake Total 600 ml Output Total 900 ml Balance -300 ml Results Result Diagram: 12/26/16 0400 12/27/16 0640 Results 24 hrs Laboratory Tests Test 12/26/16 23:05 12/27/16 06:40 Vancomycin Level Trough 8.8 L Sodium Level 141 Potassium Level 2.9 *L Chloride Level 102 Carbon Dioxide Level 29 Anion Gap 13 # Blood Urea Nitrogen 17 Creatinine 0.80 Glucose Level 145 Calcium Level 7.8 L Medications Medications Current Medications Acetaminophen (Tylenol Tab) 650 mg Q6H PRN PO PAIN AND OR ELEVATED TEMP Last administered on 12/22/16t 12:44; Admin Dose 650 MG; Start 12/21/16 at 21:00 Ondansetron HCl (Zofran Inj) 4 mg Q6H PRN IV NAUSEA AND/OR VOMITING; Start at 21:00 Lorazepam 1 mg 1 mg Q6H PRN IV SEIZURE; Start 12/22/16 at 01:00 Multivitamins/ Thiamine HCl/ Folic Acid/Sodium Chloride (Mvi-12 Adult/ Vitamin B1/Folic Acid/NS) 1,011.2 ml @ 125 mls/ hr DAILY@09 IVPB Last administered on 12/27/16 09:52; Admin Dose 125 MLS/HR; Start 12/22/16 at 09:00 Ascorbic Acid (Vitamin C) 1,000 mg TID NGT Last administered on 12/27/16 13:24 ; Admin Dose 1,000 MG; Start 12/22/16 at 13:00 Thiamine HCl (Vitamin B1) 200 mg BID NGT Last administered on 12/27/16 09:44; Admin Dose 200 MG; Start 12/22/16 at 12:00 Hydrocortisone (Solu-Cortef) 100 mg Q8 IV Last administered on 12/27/16 13:27; Admin Dose 100 MG; Start 12/22/16 at 14:00 Diphenhydramine HCl 50 mg 50 mg Q4 PRN IV ALLERGIC REACTION Last administered on 12/22/16 14:27; Admin Dose 50 MG; Start 12/22/16 at 14:00 Sodium Bicarbonate 150 meq/Dextrose 1,150 ml @ 150 mls/hr Q7H40M IV Last administered on 12/27/16 03:40; Admin Dose 150 MLS/HR; Start 12/22/16 at 21:30 Levetiracetam (Keppra 1,500mg/ 100ml (Pmx)) 100 ml @ 400 mls/hr Q12 IVPB Last administered on 12/27/16 09:44; Admin Dose 400 MLS/HR; Start 12/23/16 at 21:00 Miscellaneous Information 1 ea NOTE XX ; Start 12/24/16 at 07:00 Quetiapine Fumarate (Seroquel) 50 mg HS PO Last administered on 12/26/16 21:35 ; Admin Dose 50 MG; Start 12/26/16 at 21:00 Hydromorphone HCl (Dilaudid) 4 mg Q4H PRN PO PAIN Last administered on 17:15; Admin Dose 4 MG; Start 12/26/16 at 10:30 Morphine Sulfate 5 mg 5 mg Q3H PRN IV PAIN Last administered on 12/27/16 13:25 ; Admin Dose 5 MG; Start 12/26/16 at 17:00 Vancomycin HCl 1.25 gm/Sodium Chloride 250 ml @ 83.333 mls/ hr Q12H IVPB Last administered on 12/27/16 12:03; Admin Dose 83.333 MLS/HR; Start 12/27/16 at 11:00 ; Stop 12/27/16 at 16:00 Vancomycin HCl/ Sodium Chloride (Vancocin/NS) 250 ml @ 83.333 mls/ hr Q12H IVPB ; Start 12/27/16 at 23:00 Pantoprazole (Protonix Tab) 40 mg BID@06,18 PO ; Start 12/27/16 at 18:00 CLAY RODRIGUEZ NP Dec 27, 2016 16:00
[2016-12-27] MEDS: PANTOPRAZOLE (EC) 40 MG TAB PO SCH (17:26)
--- NOTE | 2016-12-27 19:29 | CONS ---
Date/Time of Note Date/Time of Note DATE: 12/27/16 TIME: 19:26 Assessment/Plan Assessment/Plan Chief Complaint/Hosp Course IMp: 1.Positive troponin-now trended negative/NL EF by echo this admit 2.REsp failure s/p intubation 3.Abnl ecg 4.Substance abuse 5.Celluitis-Upper extremity 6.Anemia 7. BRadycardia Recc: -Tele -serial ecg's -Continue abx's and f/u cx data -Follow BP/HR closely -Follow volume status closely Problems: Consultation Date/Type/Reason Admit Date/Time Dec 21, 2016 at 20:01 Initial Consult Date 12/22/2016 Type of Consultation: Cardiology Reason for Consultation positive troponin/bradycardia Referring Provider: JH NUÑEZ MD Exam/Review of Systems Vital Signs Vitals Vital Signs Date Time Temp Pulse Resp B/P Pulse Ox O2 Delivery O2 Flow Rate FiO2 12/27/16 16:40 Nasal Cannula 2.0 12/27/16 16:00 44 12/27/16 15:59 98.6 19 117/62 90 12/25/16 21:34 21 Intake and Output 12/26/16 12/26/16 12/27/16 14:59 22:59 06:59 Intake Total 700 ml 600 ml Output Total 620 ml 900 ml Balance 80 ml -300 ml Exam Review of Systems: CONSTITUTIONAL: No fevers, chills. PULMONARY: No sob CARDIOVASCULAR: No chest pain/palpitations GASTROINTESTINAL: No nausea/vomiting. GENITOURINARY: No hematuria/dysuria. MUSCULOSKELETAL: pain in arm PSYCHIATRIC: The patient denies depression. NEUROLOGIC: No weakness Constitutional: alert Psych: no complaints Head: normocephalic ENMT: mucosa pink and moist Neck: jvd, supple Respiratory: diminished breath sounds (at bases/B) Cardiovascular: other (bradycardic, regular rhythm) Gastrointestinal: non-tender, soft Musculoskeletal: muscle tone, other (arm covered by dressing) Extremities: edema (none) Neurological: other (No focal deficits) Results Result Diagram: 12/26/16 0400 12/27/16 0640 Results 24 hrs Laboratory Tests Test 12/26/16 23:05 12/27/16 06:40 Vancomycin Level Trough 8.8 L Sodium Level 141 Potassium Level 2.9 *L Chloride Level 102 Carbon Dioxide Level 29 Anion Gap 13 # Blood Urea Nitrogen 17 Creatinine 0.80 Glucose Level 145 Calcium Level 7.8 L Medications Medications Current Medications Acetaminophen (Tylenol Tab) 650 mg Q6H PRN PO PAIN AND OR ELEVATED TEMP Last administered on 12/22/16 12:44; Admin Dose 650 MG; Start 12/21/16 at 21:00 Ondansetron HCl (Zofran Inj) 4 mg Q6H PRN IV NAUSEA AND/OR VOMITING; Start at 21:00 Lorazepam 1 mg 1 mg Q6H PRN IV SEIZURE; Start 12/22/16 at 01:00 Multivitamins/ Thiamine HCl/ Folic Acid/Sodium Chloride (Mvi-12 Adult/ Vitamin B1/Folic Acid/NS) 1,011.2 ml @ 125 mls/ hr DAILY@09 IVPB Last administered on 12/27/16 09:52; Admin Dose 125 MLS/HR; Start 12/22/16 at 09:00 Ascorbic Acid (Vitamin C) 1,000 mg TID NGT Last administered on 12/27/16 13:24 ; Admin Dose 1,000 MG; Start 12/22/16 at 13:00 Thiamine HCl (Vitamin B1) 200 mg BID NGT Last administered on 12/27/16 09:44; Admin Dose 200 MG; Start 12/22/16 at 12:00 Hydrocortisone (Solu-Cortef) 100 mg Q8 IV Last administered on 12/27/16 13:27; Admin Dose 100 MG; Start 12/22/16 at 14:00 Diphenhydramine HCl 50 mg 50 mg Q4 PRN IV ALLERGIC REACTION Last administered on 12/22/16 14:27; Admin Dose 50 MG; Start 12/22/16 at 14:00 Sodium Bicarbonate 150 meq/Dextrose 1,150 ml @ 150 mls/hr Q7H40M IV Last administered on 12/27/16 03:40; Admin Dose 150 MLS/HR; Start 12/22/16 at 21:30 Levetiracetam (Keppra 1,500mg/ 100ml (Pmx)) 100 ml @ 400 mls/hr Q12 IVPB Last administered on 12/27/16 09:44; Admin Dose 400 MLS/HR; Start 12/23/16 at 21:00 Miscellaneous Information 1 ea NOTE XX ; Start 12/24/16 at 07:00 Quetiapine Fumarate (Seroquel) 50 mg HS PO Last administered on 12/26/16 21:35 ; Admin Dose 50 MG; Start 12/26/16 at 21:00 Hydromorphone HCl (Dilaudid) 4 mg Q4H PRN PO PAIN Last administered on 17:15; Admin Dose 4 MG; Start 12/26/16 at 10:30 Morphine Sulfate 5 mg 5 mg Q3H PRN IV PAIN Last administered on 12/27/16 17:27 ; Admin Dose 5 MG; Start 12/26/16 at 17:00 Vancomycin HCl/ Sodium Chloride (Vancocin/NS) 250 ml @ 83.333 mls/ hr Q12H IVPB ; Start 12/27/16 at 23:00 Pantoprazole (Protonix Tab) 40 mg BID@06,18 PO Last administered on 12/27/16 17 :26; Admin Dose 40 MG; Start 12/27/16 at 18:00 RILEY BECERRIL Dec 27, 2016 19:29
--- NOTE | 2016-12-27 21:08 | PN ---
Date/Time of Note Date/Time of Note DATE: 12/27/16 TIME: 21:06 Assessment/Plan VTE Prophylaxis VTE Prophylaxis Intervention: other Lines/Catheters IV Catheter Type (from Nrsg): Central Line Central line still needed: Yes Urinary Cath still in place: Yes Reason Cath still needed: other (indicate) Assessment/Plan Chief Complaint/Hosp Course A/P SEPTIC SHOCK IVDA SEIZURE LINO VDRF s/p low bp mrsa PLAN FLUID PULMONARY ID per surgery ANTIBIOTIC kcl wound care Problems: Subjective 24 Hr Interval Summary Respiratory: no complaints Cardiovascular: no complaints Musculoskeletal: restricted range of motion (+arm) Exam/Review of Systems Vital Signs Vitals Vital Signs Date Time Temp Pulse Resp B/P Pulse Ox O2 Delivery O2 Flow Rate FiO2 12/27/16 20:29 44 12/27/16 20:12 97.7 18 142/75 95 12/27/16 16:40 Nasal Cannula 2.0 12/25/16 21:34 21 Intake and Output 12/26/16 12/26/16 12/27/16 15:00 23:00 07:00 Intake Total 600 ml Output Total 900 ml Balance -300 ml Exam Neck: supple Respiratory: clear to auscultation Cardiovascular: regular rate and rhythm Gastrointestinal: soft Musculoskeletal: nl extremities to inspection Extremities: edema (rt arm+) Results Result Diagram: 12/26/16 0400 12/27/16 0640 Results 24 hrs Laboratory Tests Test 12/26/16 23:05 12/27/16 06:40 Vancomycin Level Trough 8.8 L Sodium Level 141 Potassium Level 2.9 *L Chloride Level 102 Carbon Dioxide Level 29 Anion Gap 13 # Blood Urea Nitrogen 17 Creatinine 0.80 Glucose Level 145 Calcium Level 7.8 L Medications Medications Current Medications Acetaminophen (Tylenol Tab) 650 mg Q6H PRN PO PAIN AND OR ELEVATED TEMP Last administered on 12/22/16t 12:44; Admin Dose 650 MG; Start 12/21/16 at 21:00 Ondansetron HCl (Zofran Inj) 4 mg Q6H PRN IV NAUSEA AND/OR VOMITING; Start at 21:00 Lorazepam 1 mg 1 mg Q6H PRN IV SEIZURE; Start 12/22/16 at 01:00 Multivitamins/ Thiamine HCl/ Folic Acid/Sodium Chloride (Mvi-12 Adult/ Vitamin B1/Folic Acid/NS) 1,011.2 ml @ 125 mls/ hr DAILY@09 IVPB Last administered on 12/27/16 09:52; Admin Dose 125 MLS/HR; Start 12/22/16 at 09:00 Ascorbic Acid (Vitamin C) 1,000 mg TID NGT Last administered on 12/27/16 13:24 ; Admin Dose 1,000 MG; Start 12/22/16 at 13:00 Thiamine HCl (Vitamin B1) 200 mg BID NGT Last administered on 12/27/16 09:44; Admin Dose 200 MG; Start 12/22/16 at 12:00 Hydrocortisone (Solu-Cortef) 100 mg Q8 IV Last administered on 12/27/16 13:27; Admin Dose 100 MG; Start 12/22/16 at 14:00 Diphenhydramine HCl 50 mg 50 mg Q4 PRN IV ALLERGIC REACTION Last administered on 12/22/16 14:27; Admin Dose 50 MG; Start 12/22/16 at 14:00 Sodium Bicarbonate 150 meq/Dextrose 1,150 ml @ 150 mls/hr Q7H40M IV Last administered on 12/27/16 19:00; Admin Dose 150 MLS/HR; Start 12/22/16 at 21:30 Levetiracetam (Keppra 1,500mg/ 100ml (Pmx)) 100 ml @ 400 mls/hr Q12 IVPB Last administered on 12/27/16 09:44; Admin Dose 400 MLS/HR; Start 12/23/16 at 21:00 Miscellaneous Information 1 ea NOTE XX ; Start 12/24/16 at 07:00 Quetiapine Fumarate (Seroquel) 50 mg HS PO Last administered on 12/26/16 21:35 ; Admin Dose 50 MG; Start 12/26/16 at 21:00 Hydromorphone HCl (Dilaudid) 4 mg Q4H PRN PO PAIN Last administered on 17:15; Admin Dose 4 MG; Start 12/26/16 at 10:30 Morphine Sulfate 5 mg 5 mg Q3H PRN IV PAIN Last administered on 12/27/16 17:27 ; Admin Dose 5 MG; Start 12/26/16 at 17:00 Vancomycin HCl/ Sodium Chloride (Vancocin/NS) 250 ml @ 83.333 mls/ hr Q12H IVPB ; Start 12/27/16 at 23:00 Pantoprazole (Protonix Tab) 40 mg BID@06,18 PO Last administered on 12/27/16t 17 :26; Admin Dose 40 MG; Start 12/27/16 at 18:00 JH NUÑEZ MD Dec 27, 2016 21:08
[2016-12-27] MEDS: QUETIAPINE 25 MG TAB PO SCH (21:26)
[2016-12-27] MEDS: VANCOMYCIN 1.5 GM in SOD CHLORIDE 0.9% 250 ML IVPB SCH (23:50)
[2016-12-28] VITALS (11 sets, daily range): BP systolic 125–195; BP diastolic 60–90; PULSE 43–47; RESP 18–20
[2016-12-28] MEDS: morphine 10 MG INJ IV PRN ×4 (01:07→13:47)
[2016-12-28] MEDS: SODIUM BICARBONATE (IV ADD) 150 MEQ in DEXTROSE 5% 1,000 ML IV SCH ×2 (02:40→10:02)
[2016-12-28] MEDS: PANTOPRAZOLE (EC) 40 MG TAB PO SCH (05:17)
[2016-12-28] MEDS: HYDROCORTISONE 100 MG INJ IV SCH (05:17)
[2016-12-28] MEDS: ASCORBIC ACID 500 MG TAB NGT SCH ×2 (08:23→13:09)
[2016-12-28] MEDS: THIAMINE 100 MG TAB NGT SCH (08:24)
[2016-12-28] MEDS: MULTIVITAMINS 10 ML, THIAMINE 100 MG, FOLIC ACID 1 MG in SOD CHLORIDE 0.9% 1,000 ML IVPB SCH (08:25)
[2016-12-28] MEDS: LEVETIRACETAM 1500 MG (PMX) 100 ML IVPB SCH (08:25)
[2016-12-28] MEDS ORDERED: NICOTINE (21 MG/24 HR) PATCH TRANSDERM SCH (13:00)
[2016-12-28] MEDS: VANCOMYCIN 1.5 GM in SOD CHLORIDE 0.9% 250 ML IVPB SCH (13:04)
--- NOTE | 2016-12-28 13:59 | CONS ---
Date/Time of Note Date/Time of Note DATE: 12/28/16 TIME: 13:57 Assessment/Plan Assessment/Plan Chief Complaint/Hosp Course IMp: 1.Positive troponin-now trended negative/NL EF by echo this admit 2.REsp failure s/p intubation 3.Abnl ecg 4.Substance abuse 5.Celluitis-Upper extremity 6.Anemia 7. BRadycardia Recc: -Tele -serial ecg's -Continue abx's and f/u cx data -Follow BP/HR closely -Follow volume status closely Problems: Consultation Date/Type/Reason Admit Date/Time Dec 21, 2016 at 20:01 Initial Consult Date 12/22/2016 Type of Consultation: Cardiology Reason for Consultation positive troponin Referring Provider: JH NUÑEZ MD Exam/Review of Systems Vital Signs Vitals Vital Signs Date Time Temp Pulse Resp B/P Pulse Ox O2 Delivery O2 Flow Rate FiO2 12/28/16 12:08 47 12/28/16 12:03 98.0 18 195/74 98 12/28/16 08:00 Nasal Cannula 2.0 12/25/16 21:34 21 Intake and Output 12/27/16 12/27/16 12/28/16 15:00 23:00 07:00 Intake Total 1100 ml 1200 ml Output Total 800 ml Balance 1100 ml 400 ml Exam Review of Systems: CONSTITUTIONAL: No fevers, chills. PULMONARY: No sob CARDIOVASCULAR: No chest pain/palpitations GASTROINTESTINAL: No nausea/vomiting. GENITOURINARY: No hematuria/dysuria. MUSCULOSKELETAL: No myagias/arthalgias. PSYCHIATRIC: The patient denies depression. NEUROLOGIC: No weakness Constitutional: alert, oriented Psych: no complaints Head: normocephalic ENMT: mucosa pink and moist Neck: jvd (9 cm water), supple Respiratory: diminished breath sounds (at bases/b) Cardiovascular: regular rate and rhythm Gastrointestinal: non-tender, soft Musculoskeletal: muscle tone Neurological: focal weakness (weakness) Results Result Diagram: 12/26/16 0400 12/27/16 0640 Medications Medications Current Medications Acetaminophen (Tylenol Tab) 650 mg Q6H PRN PO PAIN AND OR ELEVATED TEMP Last administered on 12/22/16t 12:44; Admin Dose 650 MG; Start 12/21/16 at 21:00 Ondansetron HCl (Zofran Inj) 4 mg Q6H PRN IV NAUSEA AND/OR VOMITING; Start at 21:00 Lorazepam 1 mg 1 mg Q6H PRN IV SEIZURE Last administered on 12/28/16 11:55; Admin Dose 1 MG; Start 12/22/16 at 01:00 Multivitamins/ Thiamine HCl/ Folic Acid/Sodium Chloride (Mvi-12 Adult/ Vitamin B1/Folic Acid/NS) 1,011.2 ml @ 125 mls/ hr DAILY@09 IVPB Last administered on 12/28/16 08:25; Admin Dose 125 MLS/HR; Start 12/22/16 at 09:00 Ascorbic Acid (Vitamin C) 1,000 mg TID NGT Last administered on 12/28/16 13:09 ; Admin Dose 1,000 MG; Start 12/22/16 at 13:00 Thiamine HCl (Vitamin B1) 200 mg BID NGT Last administered on 12/28/16 08:24; Admin Dose 200 MG; Start 12/22/16 at 12:00 Hydrocortisone (Solu-Cortef) 100 mg Q8 IV Last administered on 12/28/16 05:17; Admin Dose 100 MG; Start 12/22/16 at 14:00 Diphenhydramine HCl 50 mg 50 mg Q4 PRN IV ALLERGIC REACTION Last administered on 12/22/16 14:27; Admin Dose 50 MG; Start 12/22/16 at 14:00 Sodium Bicarbonate 150 meq/Dextrose 1,150 ml @ 150 mls/hr Q7H40M IV Last administered on 12/28/16 10:02; Admin Dose 150 MLS/HR; Start 12/22/16 at 21:30 Levetiracetam (Keppra 1,500mg/ 100ml (Pmx)) 100 ml @ 400 mls/hr Q12 IVPB Last administered on 12/28/16 08:25; Admin Dose 400 MLS/HR; Start 12/23/16 at 21:00 Miscellaneous Information 1 ea NOTE XX ; Start 12/24/16 at 07:00 Quetiapine Fumarate (Seroquel) 50 mg HS PO Last administered on 12/27/16 21:26 ; Admin Dose 50 MG; Start 12/26/16 at 21:00 Hydromorphone HCl (Dilaudid) 4 mg Q4H PRN PO PAIN Last administered on 17:15; Admin Dose 4 MG; Start 12/26/16 at 10:30 Morphine Sulfate 5 mg 5 mg Q3H PRN IV PAIN Last administered on 12/28/16 13:47 ; Admin Dose 5 MG; Start 12/26/16 at 17:00 Vancomycin HCl/ Sodium Chloride (Vancocin/NS) 250 ml @ 83.333 mls/ hr Q12H IVPB Last administered on 12/28/16 13:04; Admin Dose 83.333 MLS/HR; Start at 23:00 Pantoprazole (Protonix Tab) 40 mg BID@06,18 PO Last administered on 12/28/16 05 :17; Admin Dose 40 MG; Start 12/27/16 at 18:00 Nicotine (Nicoderm 21 Mg/ 24hr) 1 patch DAILY TRANSDERM ; Start 12/28/16 at 13:00 RILEY BECERRIL Dec 28, 2016 13:59
[2016-12-28 14:24] LABS: CALCIUM 8.3 mg/dl (8.4-10.2); CREATININE 0.77 mg/dl (0.61-1.24); POTASSIUM 3.5 mmol/L (3.5-5.1)
--- NOTE | 2016-12-28 15:43 | PSY ---
Date/Time of Note Date/Time of Note DATE: 12/28/16 TIME: 15:36 Psychiatric Subjective Eval Consent Pt consented to telemedicine: Yes Subjective Evaluation Patient location: inpatient Reason for consult: FOUND BY THE OPEN WINDOW ON THE 5TH FLOOR History of present illness zora is an unfortunate 41 yo homeless male with a long hx IV drug use, predominantly, heroin. He told me, he uses only heroin, but drug screen was positive for amphetamines as well. H was found by MD in his hospital room by the open window, and claims he wanted to smoke, however, no cigaretts were found on him. He claims, his friend visited him and brought him cigarettes. UDS was not done either after the incident. Pt minimizes the incident, denies he had Si, but admitst he has been depressed due to homeless, addiction. He has been off his psych meds (lithium, lamictal) since admission. Denies ah/vh. Past psychiatric history last inpt was a few years ago, per pt; non complaint with meds; dx of PTSD and Bipoalr I. Hx Sa in the past. Hospitalization: Suicidal Attempt(s) Family History denies Medical history as per record Allergies: Coded Allergies: piperacillin (Verified Allergy, Severe, skin rash, hives, 12/22/16) tazobactam (Verified Allergy, Severe, skin rash, hives, 12/22/16) Substance Abuse Substance abuse history: Yes Prior substance abuse treatmen: Yes Social History Marital status: single Level of education: hs DPA/Conservatorship: No Occupation/Jail: disabled Psychiatric Objective Eval Mental Status Examination: Appearance: Groomed Eye Contact: Good Psychomotor Activity: Normal Behavior: Cooperative Speech: Clear AFFECT: Guarded Mood: Depressed Though Process: Linear Thought Content: Normal Suicidal: No Homicidal: No On 72 hour hold: No Orientation: x4 Insight: Impared Judgement: Impared Laboratory Results Laboratory Tests Test 12/26/16 23:05 12/27/16 06:40 12/28/16 13:40 Vancomycin Level Trough 8.8ug/ml Sodium Level 141mmol/L 139mmol/L Potassium Level 2.9mmol/L 3.5mmol/L Chloride Level 102mmol/L 103mmol/L Carbon Dioxide Level 29mmol/L 29mmol/L Anion Gap 13 11 Blood Urea Nitrogen 17mg/dl 17mg/dl Creatinine 0.80mg/dl 0.77mg/dl Glucose Level 145mg/dl 123mg/dl Calcium Level 7.8mg/dl 8.3mg/dl Assessment and Plan Assessment/Diagnosis [place] I: opiate dependence. bipolar i d/o. ptsd. [place] II: defered [place] III: as per record [place] IV: severe [place] V: gaf 30 Recommendation/Plan Medication Management please restart on [place] 300 mg po bid and start on Abilify 5 mg poqd. No lamictal please. Psychotherapy defer to outpt Follow-up/Disposition 1:1 sitter 15/04, high index of suspicion on intended SA. Please order re-eval then ready for discharge. RADHA CHAUHAN MD Dec 28, 2016 15:43
--- NOTE | 2016-12-28 16:10 | CONS ---
Date/Time of Note Date/Time of Note DATE: 12/28/16 TIME: 16:09 Assessment/Plan Assessment/Plan Chief Complaint/Hosp Course SUBJECTIVE: No acute changes. Alert, feels good, no fevers ANTIMICROBIALS: The patient is on IV vancomycin. PHYSICAL EXAMINATION: GENERAL: Obese, well-developed, middle-aged man who is alert, in no distress. HEENT: Head atraumatic, normocephalic. Sclerae anicteric. Buccal mucosa pink. NECK: Supple. CHEST: Rise symmetrical. Breath sounds clear. HEART: S1, S2. ABDOMEN: Soft, bowel tones present. EXTREMITIES: Without cyanosis. Right upper extremity with erythema and edema. ASSESSMENT: 1. Status post septic shock. 2. Status post-acute respiratory failure. 3. Right upper extremity MRSA abscess incision and drainage 4. History of IV drug abuse. PLAN: The patient remains stable, will change abd to PO Bactrim in am, follow ortho recommendations. DW staff Problems: Consultation Date/Type/Reason Admit Date/Time Dec 21, 2016 at 20:01 Type of Consultation: id Referring Provider: JH NUÑEZ MD Exam/Review of Systems Vital Signs Vitals Vital Signs Date Time Temp Pulse Resp B/P Pulse Ox O2 Delivery O2 Flow Rate FiO2 12/28/16 15:48 98.4 59 20 166/81 95 12/28/16 08:00 Nasal Cannula 2.0 12/25/16 21:34 21 Intake and Output 12/27/16 12/27/16 12/28/16 15:00 23:00 07:00 Intake Total 1100 ml 1200 ml Output Total 800 ml Balance 1100 ml 400 ml Results Result Diagram: 12/26/16 0400 12/28/16 1340 Results 24 hrs Laboratory Tests Test 12/28/16 13:40 Sodium Level 139 Potassium Level 3.5 Chloride Level 103 Carbon Dioxide Level 29 Anion Gap 11 Blood Urea Nitrogen 17 Creatinine 0.77 Glucose Level 123 Calcium Level 8.3 L Medications Medications Current Medications Acetaminophen (Tylenol Tab) 650 mg Q6H PRN PO PAIN AND OR ELEVATED TEMP Last administered on 12/22/16t 12:44; Admin Dose 650 MG; Start 12/21/16 at 21:00 Ondansetron HCl (Zofran Inj) 4 mg Q6H PRN IV NAUSEA AND/OR VOMITING; Start at 21:00 Lorazepam 1 mg 1 mg Q6H PRN IV SEIZURE Last administered on 12/28/16 11:55; Admin Dose 1 MG; Start 12/22/16 at 01:00 Multivitamins/ Thiamine HCl/ Folic Acid/Sodium Chloride (Mvi-12 Adult/ Vitamin B1/Folic Acid/NS) 1,011.2 ml @ 125 mls/ hr DAILY@09 IVPB Last administered on 12/28/16 08:25; Admin Dose 125 MLS/HR; Start 12/22/16 at 09:00 Ascorbic Acid (Vitamin C) 1,000 mg TID NGT Last administered on 12/28/16 13:09 ; Admin Dose 1,000 MG; Start 12/22/16 at 13:00 Thiamine HCl (Vitamin B1) 200 mg BID NGT Last administered on 12/28/16 08:24; Admin Dose 200 MG; Start 12/22/16 at 12:00 Hydrocortisone (Solu-Cortef) 100 mg Q8 IV Last administered on 12/28/16 05:17; Admin Dose 100 MG; Start 12/22/16 at 14:00 Diphenhydramine HCl 50 mg 50 mg Q4 PRN IV ALLERGIC REACTION Last administered on 12/22/16 14:27; Admin Dose 50 MG; Start 12/22/16 at 14:00 Sodium Bicarbonate 150 meq/Dextrose 1,150 ml @ 150 mls/hr Q7H40M IV Last administered on 12/28/16 10:02; Admin Dose 150 MLS/HR; Start 12/22/16 at 21:30 Levetiracetam (Keppra 1,500mg/ 100ml (Pmx)) 100 ml @ 400 mls/hr Q12 IVPB Last administered on 12/28/16 08:25; Admin Dose 400 MLS/HR; Start 12/23/16 at 21:00 Miscellaneous Information 1 ea NOTE XX ; Start 12/24/16 at 07:00 Quetiapine Fumarate (Seroquel) 50 mg HS PO Last administered on 12/27/16 21:26 ; Admin Dose 50 MG; Start 12/26/16 at 21:00 Hydromorphone HCl (Dilaudid) 4 mg Q4H PRN PO PAIN Last administered on 17:15; Admin Dose 4 MG; Start 12/26/16 at 10:30 Morphine Sulfate 5 mg 5 mg Q3H PRN IV PAIN Last administered on 12/28/16 13:47 ; Admin Dose 5 MG; Start 12/26/16 at 17:00 Vancomycin HCl/ Sodium Chloride (Vancocin/NS) 250 ml @ 83.333 mls/ hr Q12H IVPB Last administered on 12/28/16 13:04; Admin Dose 83.333 MLS/HR; Start at 23:00 Pantoprazole (Protonix Tab) 40 mg BID@06,18 PO Last administered on 12/28/16 05 :17; Admin Dose 40 MG; Start 12/27/16 at 18:00 Nicotine (Nicoderm 21 Mg/ 24hr) 1 patch DAILY TRANSDERM Last administered on 13:57; Admin Dose 1 PATCH; Start 12/28/16 at 13:00 CLAY RODRIGUEZ NP Dec 28, 2016 16:10
--- NOTE | 2016-12-28 17:06 | PN ---
DATE: 12/28/2016 Stays afebrile. No more leukocytosis. The area of hardness still remains over the anterior aspect of the distal portion of the right arm. There was no evidence of fluid collection. No evidence of acute pyogenic process. Not a candidate for any surgical intervention. Dictated By: DARIN BALLESTEROS/JOVANNY Conf#: [id number] DID#: [id number]
[2016-12-28] MEDS ORDERED: HYDR2TAB15 PO (19:23)
[2016-12-28] MEDS ORDERED: BACTDS PO (19:23)
[2016-12-28] MEDS ORDERED: CEPH-443 PO (19:23)
[2016-12-28] MEDS ORDERED: IBUP-1542 PO (19:23)
[2016-12-28] MEDS ORDERED: LITHIUM CARBONATE 300 MG CAP PO SCH (21:00)
[2016-12-28] MEDS ORDERED: TRIMETHOPRIM/SULFAMETHOX (DS) TAB PO SCH (21:00)
[2016-12-29] MEDS ORDERED: ARIPIPRAZOLE 5 MG TAB PO SCH (09:00)
== END 2016-12-28 16:50 | disposition left against medical advice (07) | DRG 871 ==
LOC: MS2 20:01 → ICU 12-22 00:41 → MS4 12-26 19:14 → TEL 12-28 09:41
PROVIDERS: ADMIT Internal Medicine Nephrology; ATTEND Internal Medicine Nephrology
PROC: 06HM33Z Insertion of Infusion Device into Right Femoral Vein, Percutaneous Approach (ICD-10-PCS; principal; 2016-12-22)
PROC: 5A1945Z Respiratory Ventilation, 24-96 Consecutive Hours (ICD-10-PCS; 2016-12-22)
PROC: 0YHH33Z Insertion of Infusion Device into Right Lower Leg, Percutaneous Approach (ICD-10-PCS; 2016-12-22)
PROC: 3E0A3GC Introduction of Other Therapeutic Substance into Bone Marrow, Percutaneous Approach (ICD-10-PCS; 2016-12-22)
PROC: 0BH17EZ Insertion of Endotracheal Airway into Trachea, Via Natural or Artificial Opening (ICD-10-PCS; 2016-12-22)
PROC: 0YP Anatomical Regions, Lower Extremities, Removal (ICD-10-PCS; 2016-12-23)
DX: A41.9 Sepsis, unspecified organism (principal); R65.21 Severe sepsis with septic shock; J96.02 Acute respiratory failure with hypercapnia; G93.40 Encephalopathy, unspecified; N17.9 Acute kidney failure, unspecified; F11.20 Opioid dependence, uncomplicated; L03.113 Cellulitis of right upper limb; E86.0 Dehydration; R33.9 Retention of urine, unspecified; B95.62 Methicillin resistant Staphylococcus aureus infection as the cause of diseases classified elsewhere; G40.909 Epilepsy, unspecified, not intractable, without status epilepticus; D64.9 Anemia, unspecified; E87.6 Hypokalemia; F31.9 Bipolar disorder, unspecified; F43.10 Post-traumatic stress disorder, unspecified; Z59.0 Homelessness
CPT/HCPCS: 31500; 36600; 70450; 71010; 73200; 80048; 80053; 80202; 80307; 81001; 81003; 82550; 82553; 82565; 82570; 82803; 82962; 83036; 83605; 83880; 84100; 84155; 84300; 84443; 84484; 84520; 85025; 86140; 87040; 87070; 87081; 87086; 93306; 94002; 94003; 94770; 95819; 97162; C9113; J0330; J0743; J1170; J1200; J1720; J1815; J1953; J2060; J2270; J2370; J2543; J3010; J3260; J3370; J3411; J7030; J7040; J7042; J7050; J7060; J7070; P9045

== ENCOUNTER 2016-12-28 17:23 | Emergency (ER) | payer MEDICARE ==
[~2016-12-28] VITALS: Ht 182.9 cm; Wt 125.0 kg
[~2016-12-28 17:23] MED LIST changes: -ETOMIDATE 20 MG INJ ONE; +GABA300C16 PO; +LAMO200T18 PO; +LTH150C PO; +QUET100T PO; -SUCCINYLCHOLINE CHLORIDE 100 MG/5 ML SYG IV ONE
[2016-12-28 17:28] VITALS: Ht 182.9 cm; Wt 125.0 kg
--- NOTE | 2016-12-28 17:34 | QN ---
Documentation Comment Medical screening exam was initiated. NUVIA KESSLER MD Dec 28, 2016 17:34
[2016-12-28] MEDS ORDERED: IBUP-1542 PO (19:23)
[2016-12-28] MEDS ORDERED: CEPH-443 PO (19:23)
[2016-12-28] MEDS ORDERED: HYDR2TAB15 PO (19:23)
[2016-12-28] MEDS ORDERED: BACTDS PO (19:23)
[2016-12-28 19:32] VITALS: BP 151/99; PULSE 80; RESP 16
--- NOTE | 2016-12-28 19:46 | ERD ---
ER Documentation Chief Complaint Date/Time DATE: 12/28/16 TIME: 19:44 Chief Complaint pt bib self , AMA from floor, c/o weakness and pain HPI Patient is a 41-year-old male with drug use who presents for a right upper extremity cellulitis. The patient was admitted on December 21 and had IV antibiotics for a number of days and was admitted to the intensive care unit at that time. He was doing much better but today left AGAINST MEDICAL ADVICE. He felt dizzy after he left and new he needed to be on antibiotics by mouth so he came back to the emergency department. He does not currently have a primary doctor. ROS All systems reviewed and are negative except as per history of present illness. Medications Home Meds Active Scripts Hydromorphone Hcl* (Dilaudid*) 2 Mg Tablet, 2 MG PO Q6H Y for PAIN, #7 TAB Prov:NUVIA KESSLER MD 12/28/16 Ibuprofen* (Motrin*) 600 Mg Tab, 600 MG PO Q6H Y for PAIN AND OR ELEVATED TEMP, #30 TAB Prov:NUVIA KESSLER MD 12/28/16 Cephalexin* (Keflex*) 500 Mg Capsule, 500 MG PO QID for 7 Days, CAP Prov:NUVIA KESSLER MD 12/28/16 Sulfamethoxazole-Trimethoprim* (Bactrim* DS) 800-160 Mg Tab, 1 TAB PO BID for 7 Days, TAB Prov:NUVIA KESSLER MD 12/28/16 Reported Medications Gabapentin* (Gabapentin*) 300 Mg Capsule, 900 MG PO TID, #270 CAP 12/21/16 Lamotrigine* (Lamictal*) 200 Mg Tablet, 25 MG PO DAILY, TAB 12/21/16 [place] Carbonate* (Horton*) 150 Mg Cap, 600 MG PO DAILY, CAP 12/21/16 Quetiapine Fumarate* (Seroquel*) 100 Mg Tablet, 100 MG PO HS, #30 TAB 12/21/16 Allergies Allergies: Coded Allergies: piperacillin (Verified Allergy, Severe, skin rash, hives, 12/22/16) tazobactam (Verified Allergy, Severe, skin rash, hives, 12/22/16) PMhx/Soc History of Surgery: Yes (ankle surgery, gallbladder removal, ) Anesthesia Reaction: No Hx Neurological Disorder: No Hx Respiratory Disorders: No Hx Cardiac Disorders: No Hx Psychiatric Problems: Yes (PTSD, schizophrenia, bipolar, ) Hx Miscellaneous Medical Probl: Yes (h/o drug abuse, RUE abscess, seizure ) Hx Alcohol Use: No Hx Substance Use: Yes (heroin, few days ago) Hx Tobacco Use: Yes (2 packs a day) Smoking Status: Current every day smoker FmHx Family History: No diabetes Physical Exam Vitals Vital Signs Date Time Temp Pulse Resp B/P Pulse Ox O2 Delivery O2 Flow Rate FiO2 12/28/16 19:32 80 16 151/99 95 Room Air 12/28/16 17:28 98.3 68 20 170/95 98 Physical Exam Const: No acute distress Head: Atraumatic Eyes: Normal Conjunctiva ENT: Normal External Ears, Nose and Mouth. Neck: Full range of motion..~ No meningismus. Resp: Clear to auscultation bilaterally Cardio: Regular rate and rhythm, no murmurs Abd: Soft, non tender, non distended. Normal bowel sounds Skin: Cellulitic changes of the right upper extremity with induration but no sign of abscess at this time Back: No midline or flank tenderness Ext: No cyanosis, or edema Neur: Awake and alert Psych: Normal Mood and Affect Procedures/MDM Smoking Cessation Therapy: Pt. was lectured for greater than 3 minutes on the health risks of continued smoking and the benefits of cessation. Patient is a 41-year-old male with smoking and IV drug abuse who presents with cellulitis of the right upper extremity. This is much improved since he was admitted on December 21. The patient was going to be put on p.o. medications by Dr. Guzman but did not get a chance to get these prescriptions because he had left AMA. The patient will be given a prescription for Keflex and Bactrim. I will also give a prescription for ibuprofen and a short course of Dilaudid tablets. The patient can follow-up with a primary doctor within 24-48 hours. He will be given information for the local clinics as he does not currently have a primary doctor. I do not believe he requires readmission to the hospital. Departure Diagnosis: Primary Impression: Cellulitis Site of cellulitis: extremity Site of cellulitis of extremity: upper extremity Laterality: right Qualified Code: L03.113 - Cellulitis of right upper extremity Condition: Fair Patient Instructions: Cellulitis Referrals: COMM[facility]ITY CLINICS YOU HAVE RECEIVED A MEDICAL SCREENING EXAM AND THE RESULTS INDICATE THAT YOU DO NOT HAVE A CONDITION THAT REQUIRES URGENT TREATMENT IN THE EMERGENCY DEPARTMENT. FURTHER EVALUATION AND TREATMENT OF YOUR CONDITION CAN WAIT UNTIL YOU ARE SEEN IN YOUR DOCTORS OFFICE WITHIN THE NEXT 1-2 DAYS. IT IS YOUR RESPONSIBILITY TO MAKE AN APPOINTMENT FOR FOLOW-UP CARE. IF YOU HAVE A PRIMARY DOCTOR --you should call your primary doctor and schedule an appointment IF YOU DO NOT HAVE A PRIMARY DOCTOR YOU CAN CALL OUR PHYSICIAN REFERRAL HOTLINE AT IF YOU CAN NOT AFFORD TO SEE A PHYSICIAN YOU CAN CHOSE FROM THE FOLLOWING [facility]ICAL [facility]ESS [facility] CLINICS [facility] [address] [facility]. [facility] [address] [facility] [facility] [address] [facility] [facility] [address] [facility]. [facility] [address] [facility]. [facility]. [address] Additional Instructions: Call your primary care doctor TOMORROW for an appointment during the next 1 WEEK.Tell the principal secretary that you were referred from this facility.See the doctor sooner or return here if your condition worsens before your appointment time. NUVIA KESSLER MD Dec 28, 2016 19:46
== END 2016-12-28 19:32 | disposition home or self-care (01) ==
LOC: E/R 17:23
DX: L03.113 Cellulitis of right upper limb (principal); R40.2252 Coma scale, best verbal response, oriented, at arrival to emergency department; F17.210 Nicotine dependence, cigarettes, uncomplicated; R40.2142 Coma scale, eyes open, spontaneous, at arrival to emergency department; R40.2362 Coma scale, best motor response, obeys commands, at arrival to emergency department
CPT/HCPCS: 99284